=== PATIENT | female | born 1970 | race Caucasian/White ===

== ENCOUNTER 2016-05-20 08:37 | Emergency (ER) | payer OTHER ==
[~2016-05-20 08:37] MED LIST: ALPR0.5T PO; ALPR1TAB2 PO; ASPI81TA9 PO; CEPH500C PO; CETI10TA22 PO; CIPR500T94 PO; FLUT1DIS3 IH; FLUT1DIS5 IH; IBUP800T PO; ISOS30TA4 PO; LEVO500T38 PO; LORA0.5T96 PO; METO25TA4 PO; METO50TA2 PO; NEBI20TA2 PO; NITR0.4T SL; ONDA4TAB10 SL; PANT40TA3 PO; PRAV20TA2 PO; PRAV40TA PO; RIVA10TA PO; SERT25TA PO; SUCR1TAB29 PO; TRAM50TA PO
[2016-05-20 08:40] VITALS: BP 126/76
[2016-05-20] MEDS ORDERED: IV NORMAL SALINE 1,000ML 1,000 ML IV ONE (09:15)
[2016-05-20 09:27] LABS: HEMOGLOBIN ISTAT 11.9 gm/dL; POTASSIUM ISTAT 3.7 mmol/L (3.5-5.0)
[2016-05-20] MEDS ORDERED: LIDO:MAALOX 1:1 20 ML SINGLE DOSE ONE (09:28)
[2016-05-20] MEDS ORDERED: FENTANYL PF 100 MCG/2 ML VIAL. IV ONE (09:30)
[2016-05-20] MEDS ORDERED: ONDANSETRON PF 4 MG/2 ML VIAL. IV ONE (09:30)
--- NOTE | 2016-05-20 09:32 | ED.ADGEN ---
Past History Past Medical History: Anxiety, CAD, GERD, High Cholesterol, Hypertension, Kidney Stones, Ovarian Cyst, Pneumonia, Other Additional Past Medical Histor: pulmonary embolism Past Surgical History: Appendectomy, Cholecystectomy, , Hysterectomy, Other Smoking: Quit Less Than 1 Year Alcohol Use: None Drug Use: None Adult General HPI HPI Patient is a 45-year-old female presents emergency department complaining of left upper quadrant pain as last night. Patient denies any associated symptoms. She denies any nausea, vomiting, fever, chills, diarrhea, dysuria, vaginal bleeding or discharge. History of appendectomy and cholecystectomy. She took some Ultram earlier today for her pain but did not get satisfactory relief. Patient does not that it may be somewhat related to anxiety since she did have been with her ex- last night. She also reports that she is currently on a PPI and Carafate for gastritis and GERD. Review of Systems Review of Systems Constitutional: Denies fever or chills [] Eyes: Denies change in visual acuity, redness, or eye pain [] HENT: Denies nasal congestion or sore throat [] Respiratory: Denies cough or shortness of breath [] Cardiovascular: No additional information not addressed in HPI [] GI: Denies abdominal pain, nausea, vomiting, bloody stools or diarrhea [] : Denies dysuria or hematuria [] Musculoskeletal: Denies back pain or joint pain [] Integument: Denies rash or skin lesions [] Neurologic: Denies headache, focal weakness or sensory changes [] Endocrine: Denies polyuria or polydipsia [] Current Medications Current Medications Current Medications Medications (Trade) Dose Ordered Sig/[facility] Start Time Stop Time Status Last Admin Dose Admin Fentanyl Citrate 75 mcg 75 mcg 1X ONCE 05/20/16 09:30 05/20/16 09:31 DC 05/20/16 09:43 75 MCG Multi-Ingredient Mouthwash/Gargle (Gi Cocktail) 20 ml 1X ONCE 05/20/16 09:45 05/20/16 09:46 DC 05/20/16 09:43 20 ML Ondansetron HCl (Zofran) 4 mg 1X ONCE 05/20/16 09:30 05/20/16 09:31 DC 05/20/16 09:40 4 MG Sodium Chloride (Iv Sodium Chloride 0.9% 1,000ml) 1,000 ml @ 1,000 mls/hr 1X ONCE 05/20/16 09:15 05/20/16 10:14 05/20/16 09:38 1,000 MLS/HR Allergies Allergies Allergies Coded Allergies Type Severity Reaction Last Updated Verified codeine Allergy Intermediate 03/18/15 No morphine Allergy Intermediate Palpitations 03/18/15 Yes Physical Exam Physical Exam Constitutional: Well developed, well nourished, no acute distress, non-toxic appearance. [] HENT: Normocephalic, atraumatic, bilateral external ears normal, oropharynx moist, no oral exudates, nose normal. [] Eyes: PERRLA, EOMI, conjunctiva normal, no discharge. [] Neck: Normal range of motion, no tenderness, supple, no stridor. [] Cardiovascular:Heart rate regular rhythm, no murmur [] Lungs & Thorax: Bilateral breath sounds clear to auscultation [] Abdomen: Bowel sounds normal, soft, minimal epigastric tenderness palpation without peritoneal signs, no masses, no pulsatile masses. [] Skin: Warm, dry, no erythema, no rash. [] Back: No tenderness, no CVA tenderness. [] Extremities: No tenderness, no cyanosis, no clubbing, ROM intact, no edema. [] Neurologic: Alert and oriented X 3, normal motor function, normal sensory function, no focal deficits noted. [] Psychologic: Affect normal, judgement normal, mood normal. [] Current Patient Data Vital Signs Vital Signs Date Time Temp Pulse Resp B/P Pulse Ox O2 Delivery O2 Flow Rate FiO2 05/20/16 09:43 18 Lab Results Laboratory Tests Test 05/20/16 09:17 05/20/16 09:23 Aspartate Amino Transferase (AST) 29U/L (15-37) Alanine Aminotransferase (ALT) 46U/L (14-59) Alkaline Phosphatase 104U/L (46-116) Lipase 76U/L (73-393) POC Hemoglobin 11.9gm/dL POC Hematocrit 35% POC Sodium 141mmol/L (135-145) POC Potassium 3.7mmol/L (3.5-5.0) POC Chloride 99mmol/L (98-110) POC Total CO2 30mmol/L (23-32) Anion Gap 17mmol/L (6-14) H POC Blood Urea Nitrogen 22mg/dL (8-26) POC Creatinine 0.9mg/dL (0.5-1.4) Glucose Level 107mg/dL (60-99) H POC Ionized Calcium (Magdy) 1.15mmol/L (1.13-1.32) EKG EKG EKG interpreted by me, normal sinus rhythm, 82 beats for minute, normal axis, no ST segment elevation. [] Radiology/Procedures Radiology/Procedures [] Course & Med Decision Making Course & Med Decision Making Pertinent Labs and Imaging studies reviewed. (See chart for details) Reassuring workup. Patient's pain is improved after GI cocktail. She will follow with her doctor as needed return emergency department sooner she develops new or worsening symptoms. [] Final Impression Final Impression Abdominal pain [] Problems: Dragon Disclaimer Dragon Disclaimer This electronic medical record was generated, in whole or in part, using a voice recognition dictation system. ALEKS MIMS MD May 20, 2016 09:32
[2016-05-20 09:41] LABS: ALK PHOS 104 U/L (46-116); ALT (SGPT) 46 U/L (14-59); AST (SGOT) 29 U/L (15-37); LIPASE 76 U/L (73-393)
[2016-05-20] MEDS ORDERED: LIDO:MAALOX 1:1 20 ML SINGLE DOSE PO ONE (09:45)
--- NOTE | 2016-05-22 11:56 | EKG ---
[address] [address] Test Date: 2016-05-20 Test Time: 08:56:04 Pat Name: OWEN HERNANDEZ Department: Room: Gender: F Blood Collector: GAURAV : 1970 Requested By: ALEKS MIMS Order Number: [id number] Reading MD: Measurements Intervals [place] Rate: 82 P: 41 [place]: 142 QRS: 39 QRSD: 88 T: 67 QT: 386 QTc: 454 Interpretive Statements SINUS RHYTHM QRS(T) CONTOUR ABNORMALITY CONSIDER INFERIOR MYOCARDIAL DAMAGE T ABNORMALITY IN HIGH LATERAL LEADS ABNORMAL ECG RI6.01 Unconfirmed report No previous ECG available for comparison
== END 2016-05-20 10:23 | disposition home or self-care (01) ==
LOC: ER 08:37
DX: R10.12 Left upper quadrant pain (principal); I25.10 Atherosclerotic heart disease of native coronary artery without angina pectoris; K21.9 Gastro-esophageal reflux disease without esophagitis; E78.00 Pure hypercholesterolemia, unspecified; I10 Essential (primary) hypertension; Z87.442 Personal history of urinary calculi; Z86.711 Personal history of pulmonary embolism; Z90.49 Acquired absence of other specified parts of digestive tract; Z87.891 Personal history of nicotine dependence; Z79.899 Other long term (current) drug therapy; Z90.710 Acquired absence of both cervix and uterus; Z88.5 Allergy status to narcotic agent
CPT/HCPCS: 36415; 80047; 83690; 84075; 84450; 84460; 96361; 96374; 96375; 99285; J2405; J3010; J7030

== ENCOUNTER → 2016-07-10 | Outpatient (CLI) | payer OTHER ==
[~2016-07-10] MED LIST changes: +ASPI-612 PO; -ASPI81TA9 PO; -IBUP800T PO; +IBUP800T19 PO; -LEVO500T38 PO; +LEVO500T59 PO; -SUCR1TAB29 PO; +SUCR1TAB35 PO
[2016-07-10 11:53] LABS: ALBUMIN 3.8 g/dL (3.4-5.0); DIRECT BILIRUBIN 0.1 mg/dL (0.0-0.2); TOTAL BILIRUBIN 0.5 mg/dL (0.2-1.0); TOTAL PROTEIN 7.9 g/dL (6.4-8.2)
== END | disposition home or self-care (01) ==
LOC: LAB 11:12
PROVIDERS: ATTEND Internal Medicine Cardiovascular Disease
DX: E78.00 Pure hypercholesterolemia, unspecified (principal); Z86.711 Personal history of pulmonary embolism
CPT/HCPCS: 36415; 80061; 80076; 85379

== ENCOUNTER 2016-07-25 16:48 | Emergency (ER) | payer OTHER ==
[~2016-07-25] VITALS: Ht 165.1 cm; Wt 108.6 kg
--- NOTE | 2016-07-25 18:08 | ED.ADGEN ---
Past History Past Medical History: Anxiety, CAD, GERD, High Cholesterol, Hypertension, Kidney Stones, Ovarian Cyst, Pneumonia, Other Additional Past Medical Histor: pulmonary embolism Past Surgical History: Appendectomy, Cholecystectomy, , Hysterectomy, Other Smoking: Quit Less Than 1 Year Alcohol Use: None Drug Use: None Adult General Chief Complaint Chief Complaint Bloody stools HPI HPI Patient is a 46 year old female who presents with bloody stools. She states she woke up this morning around 11 AM had a bowel movement she noticed like clots in it. She denies any abdominal pain. She states that she won't around her day because she felt normal and then this afternoon she got home and she had blood in her underwear. She states she felt lightheaded dizzy at that time. She states that she was seen earlier today and picked up samples of Xeralto as she's had it PE in the past and has been having elevated d-dimer is no upper back on a blood thinner until she is further evaluated by heme on. She denies any chest pain shortness of breath nausea vomiting or leg swelling. She states she's had a hysterectomy appendectomy cholecystectomy in the past. Review of Systems Review of Systems Constitutional: Denies fever or chills [] Eyes: Denies change in visual acuity, redness, or eye pain [] HENT: Denies nasal congestion or sore throat [] Respiratory: Denies cough or shortness of breath [] Cardiovascular: No additional information not addressed in HPI [] GI: Denies abdominal pain, nausea, vomiting, diarrhea , positive for bloody stools. : Denies dysuria or hematuria [] Musculoskeletal: Denies back pain or joint pain [] Integument: Denies rash or skin lesions [] Neurologic: Denies headache, focal weakness or sensory changes [] Endocrine: Denies polyuria or polydipsia [] Current Medications Current Medications Current Medications Medications (Trade) Dose Ordered Sig/Naomy Start Time Stop Time Status Last Admin Dose Admin Hydromorphone HCl (Dilaudid) 1 mg PRN Q15MIN PRN 07/25/16 22:00 07/26/16 21:59 07/25/16 22:00 1 MG Allergies Allergies Allergies Coded Allergies Type Severity Reaction Last Updated Verified codeine Allergy Intermediate 03/18/15 No morphine Allergy Intermediate Palpitations 03/18/15 Yes Physical Exam Physical Exam Constitutional: Well developed, well nourished, no acute distress, non-toxic appearance. [] HENT: Normocephalic, atraumatic, bilateral external ears normal, oropharynx moist, no oral exudates, nose normal. [] Eyes: PERRLA, EOMI, conjunctiva normal, no discharge. [] Neck: Normal range of motion, no tenderness, supple, no stridor. [] Cardiovascular:Heart rate regular rhythm, no murmur [] Lungs & Thorax: Bilateral breath sounds clear to auscultation [] Abdomen/rectal exam: Bowel sounds normal, soft, no tenderness, no masses, no pulsatile masses. Rectal exam shows no external hemorrhoids, no masses, minimal nonbloody stool in the vault Skin: Warm, dry, no erythema, no rash. [] Back: No tenderness, no CVA tenderness. [] Extremities: No tenderness, no cyanosis, no clubbing, ROM intact, no edema. [] Neurologic: Alert and oriented X 3, normal motor function, normal sensory function, no focal deficits noted. [] Psychologic: Affect normal, judgement normal, mood normal. [] Current Patient Data Vital Signs Vital Signs Date Time Temp Pulse Resp B/P (MAP) Pulse Ox O2 Delivery O2 Flow Rate FiO2 07/25/16 22:00 20 99 Room Air 07/25/16 18:57 98.1 96 Lab Results Laboratory Tests Test 07/25/16 18:14 07/25/16 18:30 07/25/16 18:45 07/25/16 18:46 White Blood Count 7.2 x10^3/uL (4.0-11.0) Red Blood Count 3.73 x10^6/uL (3.50-5.40) Hemoglobin 11.5 g/dL (12.0-15.5) L Hematocrit 34.0 % (36.0-47.0) L Mean Corpuscular Volume 91 fL (79-100) Mean Corpuscular Hemoglobin 31 pg (25-35) Mean Corpuscular Hemoglobin Concent 34 g/dL (31-37) Red Cell Distribution Width 13.3 % (11.5-14.5) Platelet Count 252 x10^3/uL (140-400) Neutrophils (%) (Auto) 59 % (31-73) Lymphocytes (%) (Auto) 30 % (24-48) Monocytes (%) (Auto) 8 % (0-9) Eosinophils (%) (Auto) 4 % (0-3) H Basophils (%) (Auto) 1 % (0-3) Neutrophils # (Auto) 4.2 x10^3uL (1.8-7.7) Lymphocytes # (Auto) 2.1 x10^3/uL (1.0-4.8) Monocytes # (Auto) 0.6 x10^3/uL (0.0-1.1) Eosinophils # (Auto) 0.3 x10^3/uL (0.0-0.7) Basophils # (Auto) 0.0 x10^3/uL (0.0-0.2) Prothrombin Time 10.1 SEC (9.4-11.4) Prothrombin Time INR 1.0 (0.9-1.1) PTT 24 SEC (23-33) Urine Test Negative (NEG) Stool Occult Blood Positive (NEG) Sodium Level 143 mmol/L (136-145) Potassium Level 3.9 mmol/L (3.5-5.1) Chloride Level 107 mmol/L (98-107) Carbon Dioxide Level 29 mmol/L (21-32) Anion Gap 7 (6-14) Blood Urea Nitrogen 14 mg/dL (7-20) Creatinine 1.0 mg/dL (0.6-1.0) Estimated GFR (Cockcroft-Gault) 60.0 Glucose Level 122 mg/dL (70-99) H Calcium Level 8.5 mg/dL (8.5-10.1) Test 07/25/16 19:02 Creatine Kinase 104 U/L (26-192) Creatine Kinase MB (Mass) 0.9 ng/mL (0.0-3.6) Creatine Kinase MB Relative Index 0.9 % (0-4) Troponin I Quantitative < 0.017 ng/mL (0-0.055) EKG EKG EKG shows normal sinus rhythm with a rate of [address] elevations or T-wave inversions, normal axis, QTC 480 ms, as interpreted by me. Radiology/Procedures Radiology/Procedures [address] [address] IMAGING REPORT Signed PATIENT: OWEN HERNANDEZ ACCOUNT: [id number] : 1970 LOCATION: ER AGE: 46 SEX: F EXAM STATUS: REG ER ORD. PHYSICIAN: ALEKSANDRA TURNER MD REASON: gi bleed PROCEDURE: CT ABDOMEN PELVIS WO CONTRAST History: Epigastric abdominal pain with GI bleeding. Comparison: CT abdomen and pelvis March 05, 2016. Technique: CT of the abdomen and pelvis was performed without intravenous or oral contrast. Exposure: One or more of the following individualized dose reduction techniques were utilized for this examination: 1. Automated exposure control 2. Adjustment of the mA and/or kV according to patient size 3. Use of iterative reconstruction technique Findings: Evaluation of solid organs of the abdomen and pelvis is limited by lack of intravenous contrast. Evaluation of enteric structures may be limited by lack of oral contrast. Visualized liver is unremarkable. Spleen is at the upper limits of normal for size. Pancreas and bilateral adrenal glands are unremarkable. Gallbladder is absent. No bowel obstruction or inflammation is seen. Appendix is not identified. Urinary bladder is unremarkable. Uterus is absent. Both kidneys and ureters are free stone or obstruction. Interpolar region of left kidney demonstrates 2.9 cm low-attenuation lesion, not adequately characterized on this examination, statistically should be cyst. Impression: No acute abnormality identified in the abdomen or pelvis. Electronically signed by: Bhavesh Florence MD (07/25/2016 6:38 PM) DICTATED AND SIGNED BY: BHAVESH FLORENCE MD DATE: 07/25/16 1833 CC: ALEKSANDRA TURNER MD; NIYAH SALEH APRN ~ Course & Med Decision Making Course & Med Decision Making Pertinent Labs and Imaging studies reviewed. (See chart for details) She did start complaining of some burning sensation in her abdomen. EKG and troponins do not show acute abdomen allergies. Echo exam did not show any active bleeding. She wanted to go to [facility], however there full and not accepting patients this time. We'll admit to [place] with Dr. Culver. Patient did require IV Dilaudid and 1 mg prior to departure the EMS. She is in stable condition this time. Final Impression Final Impression Rectal bleeding Problems: Dragon Disclaimer Dragon Disclaimer This electronic medical record was generated, in whole or in part, using a voice recognition dictation system. ALEKSANDRA TURNER MD Jul 25, 2016 18:08
--- NOTE | 2016-07-25 18:42 | RAD ---
History: Epigastric abdominal pain with GI bleeding. Comparison: CT abdomen and pelvis March 05, 2016. Technique: CT of the abdomen and pelvis was performed without intravenous or oral contrast. Exposure: One or more of the following individualized dose reduction techniques were utilized for this examination: 1. Automated exposure control 2. Adjustment of the mA and/or kV according to patient size 3. Use of iterative reconstruction technique Findings: Evaluation of solid organs of the abdomen and pelvis is limited by lack of intravenous contrast. Evaluation of enteric structures may be limited by lack of oral contrast. Visualized liver is unremarkable. Spleen is at the upper limits of normal for size. Pancreas and bilateral adrenal glands are unremarkable. Gallbladder is absent. No bowel obstruction or inflammation is seen. Appendix is not identified. Urinary bladder is unremarkable. Uterus is absent. Both kidneys and ureters are free stone or obstruction. Interpolar region of left kidney demonstrates 2.9 cm low-attenuation lesion, not adequately characterized on this examination, statistically should be cyst. Impression: No acute abnormality identified in the abdomen or pelvis. Electronically signed by: Bhavesh James MD (07/25/2016 6:38 PM)
[2016-07-25 18:57] VITALS: BP 141/94
[2016-07-25 19:00] LABS: FECAL OB PT POSITIVE (NEG)
[2016-07-25 19:15] LABS: BASO % 1 % (0-3); EOS # 0.3 x10^3/uL (0.0-0.7); EOS % 4 % (0-3); HEMOGLOBIN 11.5 g/dL (12.0-15.5); LYMPH # 2.1 x10^3/uL (1.0-4.8); LYMPH % 30 % (24-48); MEAN CORPUSCULAR HEMOGLOBIN 31 pg (25-35); MEAN CORPUSCULAR HGB CONC 34 g/dL (31-37); MEAN CORPUSCULAR VOLUME 91 fL (79-100); MONO # 0.6 x10^3/uL (0.0-1.1); MONO % 8 % (0-9); NEUT # 4.2 x10^3uL (1.8-7.7); NEUT % 59 % (31-73); PLATELET COUNT 252 x10^3/uL (140-400); RED BLOOD COUNT 3.73 x10^6/uL (3.50-5.40); RED CELL DISTRIBUTION WIDTH 13.3 % (11.5-14.5); WHITE BLOOD COUNT 7.2 x10^3/uL (4.0-11.0)
[2016-07-25 19:21] LABS: CALCIUM 8.5 mg/dL (8.5-10.1); POTASSIUM 3.9 mmol/L (3.5-5.1)
[2016-07-25 19:42] LABS: U PREG PATIENT NEGATIVE (NEG)
[2016-07-25] MEDS ORDERED: HYDROmorphone PF 1 MG/ML DISP.SYRIN IV/SQ PRN (22:00)
--- NOTE | 2016-07-26 04:30 | EKG ---
[address] [address] Test Date: 2016-07-25 Test Time: 18:20:38 Pat Name: OWEN HERNANDEZ Department: Room: Gender: F [employer] Professional: MIKY : 1970 Requested By: ALEKSANDRA TURNER Order Number: [id number] Reading MD: Carter Celaya Measurements Intervals [place] Rate: 92 P: 42 [place]: 146 QRS: 36 QRSD: 92 T: 51 QT: 384 QTc: 480 Interpretive Statements SINUS RHYTHM Electronically Signed On 07-26-2016 11:14:22 CDT by Carter Celaya
== END 2016-07-25 23:35 | disposition short-term general hospital (02) ==
LOC: ER 16:48
DX: K62.5 Hemorrhage of anus and rectum (principal); R42 Dizziness and giddiness; I25.10 Atherosclerotic heart disease of native coronary artery without angina pectoris; I10 Essential (primary) hypertension; E78.00 Pure hypercholesterolemia, unspecified; K21.9 Gastro-esophageal reflux disease without esophagitis; Z87.442 Personal history of urinary calculi; Z86.711 Personal history of pulmonary embolism; Z87.891 Personal history of nicotine dependence; Z88.5 Allergy status to narcotic agent; Z88.6 Allergy status to analgesic agent
CPT/HCPCS: 36415; 74176; 80048; 81025; 82274; 82553; 84484; 85027; 85610; 85730; 93005; 96374; 99285; J1170

== ENCOUNTER → 2016-09-24 | Outpatient (CLI) | payer OTHER ==
--- NOTE | 2016-09-25 10:23 | RAD ---
DATE: 09/24/2016. 30 171 moderate to the prior EXAM: MAMMO LES DIAG RT, BREAST RIGHT HISTORY: Follow-up right breast abnormality. Patient complains of right breast discomfort COMPARISON: Ultrasound and mammogram 03/28/2016, This study was interpreted with the benefit of Computerized Aided Detection (CAD ). The breast parenchyma shows scattered fibroglandular densities. Breast parenchyma level B. FINDINGS: CC and MLO views of the right breast including right breast tomosynthesis was performed. Targeted ultrasound was utilized. Right breast: Stable appearance of 2 nodular areas in the right breast at the 12 :00 position, approximately 3 and 5 cm from the nipple. Repeat targeted ultrasound was performed in this region which demonstrates a 3 mm slightly hypoechoic mass at the 12:00 position, 3 cm from the nipple. This finding likely represents a complicated cyst. At the 12:00 position, 5 cm from the nipple there is a 4 x 4.5 mm irregular mass with angular margins which is isoechoic. No definite posterior characteristics are identified. There is an adjacent dilated tubular structure suggestive of a duct measuring up to 1.5 mm in diameter. Previously seen cystic structure appears to be contiguous with the duct. This finding is indeterminate and ultrasound-guided biopsy of the irregular mass is recommended. This was discussed with the patient at the time of ultrasound imaging. Results were communicated with Jada Soares, who will provide the patient with an order for ultrasound-guided biopsy. IMPRESSION: Suspicious findings of a 4 x 4.5 mm irregular mass with angular margins in the right breast at 12:00 position, 5 cm from the nipple. Recommend ultrasound- guided biopsy. BI-RADS CATEGORY: 4 SUSPICIOUS ABNORMALITY- BIOPSY SHOULD BE CONSIDERED RECOMMENDED FOLLOW-UP: BIO BIOPSY RECOMMENDED PQRS compliance statement: Mammography is a sensitive method for finding small breast cancers, but it does not detect them all and is not a substitute for careful clinical examination. A negative mammogram does not negate a clinically suspicious finding and should not result in delay in biopsying a clinically suspicious abnormality. "Our facility is accredited by the [employer] Mammography Program." MTDD
== END | disposition home or self-care (01) ==
LOC: MAMMO 13:44
PROVIDERS: ATTEND Family Medicine
DX: N63 Unspecified lump in breast (principal)
CPT/HCPCS: 76641; G0206; G0279; 77061; 77065

== ENCOUNTER 2016-12-20 14:36 | Emergency (ER) | payer OTHER ==
[2016-12-20] MEDS ORDERED: traMADol 50 MG TABLET PO ONE (15:00)
--- NOTE | 2016-12-20 15:11 | ED.ADGEN ---
Past History Past Medical History: Anxiety, CAD, High Cholesterol, Hypertension, Kidney Stones, Ovarian Cyst, Pneumonia Additional Past Medical Histor: pulmonary embolism Past Surgical History: Appendectomy, Cholecystectomy, , Hysterectomy Smoking: Quit Less Than 1 Year Alcohol Use: None Drug Use: None Adult General Chief Complaint Chief Complaint Back pain HPI HPI Patient is a 46 year old female who presents with worsening R low back pain. Pt reports chronic low back pain from a herniated disc, that radiates to her R posterior thigh. Denies saddle sensory change, no bowel or bladder incontinence or retention reported. These are typical symptoms from her chronic pain but uncontrolled because patient is out of her tramadol today and also cannot afford to get the lidocaine patches or the Soma tablet that the primary pain specialist prescribed. She tried to go and get her tramadol prescription filled but the pharmacy had not yet received the refill verification from the PCP. Reports some increased urinary frequency with sensation she doesn't empty her bladder, symptoms started this morning. Review of Systems Review of Systems Constitutional: Denies fever or chills [] Eyes: Denies change in visual acuity, redness, or eye pain [] HENT: Denies nasal congestion or sore throat [] Respiratory: Denies cough or shortness of breath [] Cardiovascular: reports chronic tachycardia GI: Denies abdominal pain, nausea, vomiting, bloody stools or diarrhea [] : per hpi Musculoskeletal: per hpi Integument: Denies rash or skin lesions [] All other systems were reviewed and found to be within normal limits, except as documented in this note. Current Medications Current Medications Current Medications Medications (Trade) Dose Ordered Sig/Naomy Start Time Stop Time Status Last Admin Dose Admin Cyclobenzaprine HCl (Flexeril) 10 mg 1X ONCE 12/20/16 15:30 12/20/16 15:31 DC 12/20/16 15:08 10 MG Lidocaine (Lidoderm) 1 patch 1X ONCE 12/20/16 15:30 12/20/16 15:31 DC 12/20/16 15:13 1 PATCH Tramadol HCl (Ultram) 50 mg 1X ONCE 12/20/16 15:00 12/20/16 15:01 DC 12/20/16 14:59 50 MG Allergies Allergies Allergies Coded Allergies Type Severity Reaction Last Updated Verified codeine Allergy Intermediate 03/18/15 No morphine Allergy Intermediate Palpitations 03/18/15 Yes Physical Exam Physical Exam Constitutional: Well developed, well nourished, no acute distress, non-toxic appearance. [] HENT: Normocephalic, atraumatic, bilateral external ears normal, oropharynx moist, no oral exudates, nose normal. [] Eyes: PERRLA, EOMI, conjunctiva normal, no discharge. [] Neck: Normal range of motion, no tenderness, supple, no stridor. [] Cardiovascular:Heart rate midlly tachy with regular with regular rhythm Lungs & Thorax: Bilateral breath sounds clear to auscultation [] Abdomen: Bowel sounds normal, soft, no tenderness, no masses, no pulsatile masses. [] Skin: Warm, dry, no erythema, no rash. [] Back: No midline stepoffs or tenderness, R SI joint ttp, no CVA tenderness. [] Extremities: No tenderness, no cyanosis, no clubbing, no edema.distal pulses intact. Neurologic: Alert and oriented X 3, normal motor function, normal sensory function, no focal deficits noted. [] Psychologic: Affect normal, judgement normal, mood normal. [] Current Patient Data Vital Signs Vital Signs Date Time Temp Pulse Resp B/P (MAP) Pulse Ox O2 Delivery O2 Flow Rate FiO2 12/20/16 14:59 20 98 Room Air 12/20/16 14:36 98.3 127 Lab Results Laboratory Tests Test 12/20/16 14:55 Urine Collection Type Unknown Urine Color Yellow Urine Clarity Turbid Urine pH 8.5 Urine Specific [place] 1.020 Urine Protein 30 mg/dl (NEG-TRACE) Urine Glucose (UA) Neg mg/dL (NEG) Urine Ketones (Stick) Neg mg/dL (NEG) Urine Blood Small (NEG) Urine Nitrite Neg (NEG) Urine Bilirubin Neg (NEG) Urine Urobilinogen Dipstick 0.2 mg/dL (0.2 mg/dL) Urine Leukocyte Esterase Mod (NEG) Urine RBC 3-5 /HPF (0-2) Urine WBC >40 /HPF (0-4) Urine Squamous Epithelial Cells Mod /LPF Urine Bacteria Few /HPF (0-FEW) Urine Mucus Slight /LPF EKG EKG [] Radiology/Procedures Radiology/Procedures [] Course & Med Decision Making Course & Med Decision Making Pertinent Labs and Imaging studies reviewed. (See chart for details) pt will not be driving. Ordered tramadol, lidocaine patch, and po flexeril. Pt has prescriptions for her medications, encouraged her to f/u with her primary pain specialist. Pt requested steroid shot. solumedrol 125 mg IM given prior to dc. Pt's urine shows signs of infection. Will treat with keflex and have pt f/u with pcp. Final Impression Final Impression acute on chronic R low back pain without signs of cord compression[] Urinary tract infection Problems: Dragon Disclaimer Dragon Disclaimer This electronic medical record was generated, in whole or in part, using a voice recognition dictation system. ЕКАТЕРИНА KENDALL MD Dec 20, 2016 15:11
[2016-12-20] MEDS ORDERED: LIDOCAINE (700MG/PATCH) PATCH. TD ONE (15:30)
[2016-12-20] MEDS ORDERED: CYCLOBENZAPRINE 10 MG TABLET. PO ONE (15:30)
[2016-12-20 15:35] LABS: BACTERIA,URINE FEW /HPF (0-FEW); BILIRUBIN,URINE NEG (NEG); CLARITY,URINE TURBID; COLOR,URINE YELLOW; GLUCOSE,URINE NEG (NEG); NITRITE,URINE NEG (NEG); SQUAMOUS EPITHELIAL CELL,UR MOD /LPF; UROBILINOGEN,URINE 0.2 mg/dL (0.2 mg/dL); WBC,URINE >40 /HPF (0-4)
[2016-12-20] MEDS ORDERED: CEPH-264 PO (15:41)
[2016-12-20 16:00] VITALS: BP 109/45
[2016-12-20] MEDS ORDERED: methylPREDNISolone SOD SUCC PF 125 MG/2 ML VIAL. IM ONE (16:15)
== END 2016-12-20 16:00 | disposition home or self-care (01) ==
LOC: ER 14:36
DX: G89.29 Other chronic pain (principal); M54.5 Low back pain; N39.0 Urinary tract infection, site not specified; E78.00 Pure hypercholesterolemia, unspecified; I10 Essential (primary) hypertension; I25.10 Atherosclerotic heart disease of native coronary artery without angina pectoris; F41.9 Anxiety disorder, unspecified; Z87.442 Personal history of urinary calculi; Z86.711 Personal history of pulmonary embolism; Z90.49 Acquired absence of other specified parts of digestive tract; Z98.890 Other specified postprocedural states; Z90.710 Acquired absence of both cervix and uterus; Z87.891 Personal history of nicotine dependence; Z88.5 Allergy status to narcotic agent
CPT/HCPCS: 81001; 87086; 96372; 99284; J2930

== ENCOUNTER 2018-11-28 20:30 | Inpatient (IN) | payer OTHER ==
[~2018-11-28] VITALS: Ht 165.1 cm; Wt 127.9 kg
[~2018-11-28 20:30] MED LIST changes: +CEPH-264 PO; -METO50TA2 PO; +METO50TA6 PO; -NITR0.4T SL; +NITR0.4T24 SL
[2018-11-28] MEDS ORDERED: IV NORMAL SALINE 1,000ML 1,000 ML IV SCH (20:55)
[2018-11-28] MEDS ORDERED: IPRATRPIUM/ALBUTEROL 0.5/2.5MG 3 ML NEBU. NEB ONE (21:00)
--- NOTE | 2018-11-28 21:01 | PHYS DOC ---
Past History Past Medical History: Anxiety, CAD, High Cholesterol, Hypertension, Kidney Stones, Ovarian Cyst, Pneumonia, Other Additional Past Medical Histor: pulmonary embolism, tachycardia Past Surgical History: Appendectomy, Cholecystectomy, , Hysterectomy, Other Smoking: Quit Less Than 1 Year Alcohol Use: None Drug Use: None Adult General Chief Complaint Chief Complaint: DYSPNEA/RESPIRATOY DISTRESS [facility] HPI Patient is a 48-year-old female presents with shortness of breath and feeling tired. This has been going on today. Patient denies any fever. She was admitted at [facility] approximately a month and a half ago for sepsis of unknown source. She was seen by her primary care team today had blood work drawn, and was contacted because her white count was elevated at 17, and her primary care team was concerned about her liver and kidney function per patient's report. Patient denies any chest pain. Denies any respirophasic pain. Denies any new swelling in her legs. She relatively recently broke her ankle and has been in a Velcro splint mechanism for that. She does have her remote history of pulmonary embolism but is not currently on any anticoagulants. She also has a history of asthma/COPD and stopped smoking approximately 8 months ago.[] Review of Systems Review of Systems Constitutional: Denies fever or chills, see history of present illness [] Eyes: Denies change in visual acuity, redness, or eye pain [] HENT: Denies nasal congestion or sore throat [] Respiratory: See history of present illness[] Cardiovascular: No additional information not addressed in HPI [] GI: Denies abdominal pain, nausea, vomiting, bloody stools or diarrhea [] : Denies dysuria or hematuria [] Musculoskeletal: Denies back pain or joint pain [] Integument: Denies rash or skin lesions [] Neurologic: Denies headache, focal weakness or sensory changes [] Endocrine: Denies polyuria or polydipsia [] All other systems were reviewed and found to be within normal limits, except as documented in this note. Allergies Allergies Allergies Coded Allergies Type Severity Reaction Last Updated Verified codeine Allergy Intermediate 03/18/15 No morphine Allergy Intermediate Palpitations 03/18/15 Yes Physical Exam Physical Exam Constitutional: Well developed, well nourished, no acute distress, non-toxic appearance. [] HENT: Normocephalic, atraumatic, bilateral external ears normal, oropharynx moist, no oral exudates, nose normal. [] Eyes: PERRLA, EOMI, conjunctiva normal, no discharge. [] Neck: Normal range of motion, no tenderness, supple, no stridor. [] Cardiovascular:Heart rate is tachycardic with a regular rhythm, no murmur [] Lungs & Thorax: Bilateral breath sounds clear to auscultation [] Abdomen: Bowel sounds normal, soft, no tenderness, no masses, no pulsatile masses. [] Skin: Warm, dry, no erythema, no rash. [] Back: No tenderness, no CVA tenderness. [] Extremities: No tenderness, no cyanosis, no clubbing, ROM intact, no edema. [] Neurologic: Alert and oriented X 3, normal motor function, normal sensory function, no focal deficits noted. [] Psychologic: Affect normal, judgement normal, mood normal. [] EKG EKG EKG shows a sinus tachycardia at 112 bpm, normal axis, normal QTC at 466 ms, no ST elevations. When compared with EKG of 07/25/2016, no acute changes other than rate. Interpreted by me at 2119.[] Radiology/Procedures Radiology/Procedures Chest x-ray shows no evidence of pneumonia, pneumothorax, nor effusion[] Course & Med Decision Making Course & Med Decision Making Pertinent Labs and Imaging studies reviewed. (See chart for details) ED course: Patient arrived, was placed in bed, and tolerated exam well. IV access was established, she was given IV fluids which did not significantly change her heart rate. She was given a breathing treatment which may have affected the heart rate improving affect some of the IV fluids. Her elevated lactate was noted along with the leukocytosis which is better than the reported 17 performed earlier today at her primary care physician's office. Additional fluids were ordered, that she was given empiric antibiotic therapy. And consultation was made with the hospitalist service for admission. She was admitted in improved condition. Records are being requested from [facility] since that is where she was admitted within the past 2 months when something like this last happened. Medical decision making: Patient with leukocytosis, elevated glucose without evidence of DKA however her lactate is elevated. Uncertain as to the specific trigger but covering for pulmonary features. She is being admitted to the hospital. Do not believe this to be a pulmonary embolism, her d-dimer while elevated is only slightly elevated. She has no respirophasic chest pain, and no evidence of this being acute coronary syndrome.[] Dragon Disclaimer Dragon Disclaimer This electronic medical record was generated, in whole or in part, using a voice recognition dictation system. Departure Departure: Impression: Primary Impression: Weakness Additional Impressions: Leukocytosis Elevated lactic acid level Elevated glucose Disposition: ADMITTED INPATIENT Admitting Physician: Huber Rodriguez Condition: IMPROVED Referrals: NIYAH SALEH APRN (PCP) Problem Qualifiers Additional Impressions: Leukocytosis Leukocytosis type: unspecified Qualified Codes: D72.829 - Elevated white blood cell count, unspecified AMEENA DOMINGUEZ DO Nov 28, 2018 21:01
[2018-11-28 22:18] LABS: BASO # 0.4 x10^3/uL (0.0-0.2); BASO % 3 % (0-3); EOS # 0.4 x10^3/uL (0.0-0.7); EOS % 3 % (0-3); HEMOGLOBIN 12.3 g/dL (12.0-15.5); LYMPH # 2.6 x10^3/uL (1.0-4.8); LYMPH % 18 % (24-48); MEAN CORPUSCULAR HEMOGLOBIN 29 pg (25-35); MEAN CORPUSCULAR HGB CONC 32 g/dL (31-37); MEAN CORPUSCULAR VOLUME 91 fL (79-100); MONO # 0.5 x10^3/uL (0.0-1.1); MONO % 4 % (0-9); NEUT # 10.9 x10^3uL (1.8-7.7); NEUT % 73 % (31-73); PLATELET COUNT 356 x10^3/uL (140-400); RED BLOOD COUNT 4.17 x10^6/uL (3.50-5.40); RED CELL DISTRIBUTION WIDTH 15.2 % (11.5-14.5); WHITE BLOOD COUNT 14.9 x10^3/uL (4.0-11.0)
[2018-11-28 22:22] LABS: ALBUMIN 3.3 g/dL (3.4-5.0); ALBUMIN/GLOBULIN RATIO 0.9 (1.0-1.7); CALCIUM 8.2 mg/dL (8.5-10.1); CREATININE 1.1 mg/dL (0.6-1.0); GFR 53.2; POTASSIUM 4.9 mmol/L (3.5-5.1); TOTAL BILIRUBIN 0.3 mg/dL (0.2-1.0)
[2018-11-28 22:30] LABS: CLARITY,URINE CLEAR; COLOR,URINE YELLOW; GLUCOSE,URINE 500 mg/dL (NEG)
[2018-11-28 22:31] LABS: BILIRUBIN,URINE NEG (NEG); NITRITE,URINE NEG (NEG); UROBILINOGEN,URINE 0.2 mg/dL (0.2 mg/dL)
[2018-11-28 22:37] LABS: BACTERIA,URINE FEW /HPF (0-FEW); HYALINE CASTS, URINE OCC /HPF; SQUAMOUS EPITHELIAL CELL,UR OCC /LPF; WBC,URINE OCC /HPF (0-4)
[2018-11-28] MEDS ORDERED: ONDANSETRON PF 4 MG/2 ML VIAL. IV PRN (23:00)
[2018-11-28] MEDS ORDERED: IV NORMAL SALINE 1,000ML 1,000 ML IV ONE (23:00)
[2018-11-28] MEDS ORDERED: ACETAMINOPHEN 325 MG TABLET PO PRN (23:00)
[2018-11-28] MEDS ORDERED: IV NORMAL SALINE 50ML 50 ML ONE (23:12)
[2018-11-28] MEDS ORDERED: cefTRIAXone SODIUM 1 GM VIAL ONE (23:12)
[2018-11-28] MEDS ORDERED: AZITHROMYCIN 500 MG in IV NORMAL SALINE 250ML 250 ML IV ONE (23:15)
[2018-11-28] MEDS ORDERED: KETOROLAC 15 MG/ML VIAL. IV ONE (23:15)
[2018-11-28] MEDS ORDERED: IV NORMAL SALINE 250ML 0 ML ONE (23:16)
[2018-11-28] MEDS ORDERED: AZITHROMYCIN 500 MG VIAL. IV ONE (23:16)
[2018-11-29] MEDS: IV NORMAL SALINE 1,000ML 1,000 ML IV SCH ×3 (00:08→21:30)
[2018-11-29 00:26] VITALS: BP 107/71
[2018-11-29] MEDS ORDERED: OXYC1TAB15 PO ×2 (00:33)
[2018-11-29] MEDS ORDERED: oxyCODONE/APAP 5/325 1 TAB TABLET PO PRN ×3 (00:45→01:30)
[2018-11-29] MEDS ORDERED: IBUPROFEN 800 MG TABLET. PO PRN (01:00)
[2018-11-29] MEDS ORDERED: traMADol 50 MG TABLET PO PRN (01:00)
[2018-11-29] MEDS ORDERED: ONDANSETRON ODT 4 MG TAB.RAPDIS PO PRN (01:00)
[2018-11-29] MEDS ORDERED: LINA145C PO (01:12)
[2018-11-29] MEDS ORDERED: SUCR1ORA5 PO (01:12)
[2018-11-29] MEDS ORDERED: METO100T7 PO (01:12)
[2018-11-29] MEDS ORDERED: IBUP800T19 PO (01:12)
[2018-11-29] MEDS ORDERED: TRAM50TA PO (01:12)
[2018-11-29] MEDS ORDERED: ONDA4TAB12 PO (01:12)
[2018-11-29] MEDS ORDERED: LIDO700A21 TP (01:12)
[2018-11-29] MEDS ORDERED: PREG150C PO (01:12)
[2018-11-29] MEDS ORDERED: FLUT9.9S NS (01:12)
[2018-11-29] MEDS ORDERED: NORT25CA3 PO (01:12)
[2018-11-29] MEDS ORDERED: DULO60CA6 PO (01:12)
[2018-11-29] MEDS ORDERED: INSU100I17 SQ (01:12)
[2018-11-29] MEDS ORDERED: ALBU2.5V8 IH (01:12)
[2018-11-29] MEDS ORDERED: FESO8TAB PO (01:12)
[2018-11-29] MEDS ORDERED: FLUT1BLS10 IH (01:12)
[2018-11-29] MEDS ORDERED: DEXTROSE 50% 25 GM / 50ML DISP.SYRIN. IV PRN (01:30)
[2018-11-29] MEDS ORDERED: IPRATRPIUM/ALBUTEROL 0.5/2.5MG 3 ML NEBU. ONE (05:02)
[2018-11-29] MEDS: IPRATRPIUM/ALBUTEROL 0.5/2.5MG 3 ML NEBU. NEB SCH ×4 (05:06→20:52)
[2018-11-29 05:10] LABS: ALBUMIN 2.7 g/dL (3.4-5.0); ALBUMIN/GLOBULIN RATIO 0.7 (1.0-1.7); CALCIUM 7.4 mg/dL (8.5-10.1); GFR 59.4; POTASSIUM 4.1 mmol/L (3.5-5.1); TOTAL BILIRUBIN 0.2 mg/dL (0.2-1.0); TOTAL PROTEIN 6.4 g/dL (6.4-8.2)
[2018-11-29 05:15] VITALS: BP 111/77
--- NOTE | 2018-11-29 05:28 | RAD ---
Chest AP portable at 2102: Reason for examination: Short of breath. Comparison is made to previous study dated 10/27/2015. The heart size is normal. Mediastinum is unremarkable. Lung solis continue show some elevation of the right hemidiaphragm which appears be more prominent than on previous exam and there are some linear atelectasis at the right lung base. The left lung field is clear. No acute bony abnormalities are seen. Impression: Increased elevation of the right hemidiaphragm with some linear atelectasis at the right lung base. Electronically signed by: Tonya Tuttle MD (11/29/2018 5:25 AM) [facility]
[2018-11-29 05:36] LABS: BASO # 0.4 x10^3/uL (0.0-0.2); BASO % 3 % (0-3); EOS # 0.4 x10^3/uL (0.0-0.7); EOS % 3 % (0-3); HEMATOCRIT 34.5 % (36.0-47.0); LYMPH # 2.4 x10^3/uL (1.0-4.8); LYMPH % 18 % (24-48); MEAN CORPUSCULAR HEMOGLOBIN 30 pg (25-35); MEAN CORPUSCULAR HGB CONC 32 g/dL (31-37); MEAN CORPUSCULAR VOLUME 93 fL (79-100); MONO # 0.6 x10^3/uL (0.0-1.1); MONO % 5 % (0-9); NEUT # 9.2 x10^3uL (1.8-7.7); NEUT % 71 % (31-73); PLATELET COUNT 295 x10^3/uL (140-400); RED BLOOD COUNT 3.71 x10^6/uL (3.50-5.40)
[2018-11-29] MEDS: FLUTICASONE 50MCG/NASAL SPRAY 16GM BOTTLE. NS SCH (08:17)
[2018-11-29] MEDS: SUCRALFATE 1 GM/10 ML ORAL.SUSP. PO SCH ×4 (08:17→21:27)
[2018-11-29] MEDS: PANTOPRAZOLE 40 MG TABLET. PO SCH ×2 (08:18→18:13)
[2018-11-29] MEDS: DULoxetine HCL 60 MG CAPSULE.DR PO SCH ×2 (08:18→21:30)
[2018-11-29] MEDS: RIVAROXABAN 15 MG TABLET. PO SCH (08:18)
[2018-11-29] MEDS: PREGABALIN 75 MG CAPSULE PO SCH ×2 (08:18→21:28)
[2018-11-29] MEDS: METOPROLOL TART IMMED RELEASE 50 MG TABLET PO SCH (08:19)
[2018-11-29] MEDS: LIDOCAINE (700MG/PATCH) PATCH. TP SCH (08:19)
[2018-11-29] MEDS: LINACLOTIDE 145 MCG CAPSULE. PO SCH (08:20)
[2018-11-29] MEDS: INSULIN LISPRO 300 UNITS/3 ML VIAL. SQ SCH ×3 (08:26→18:15)
[2018-11-29] MEDS ORDERED: ATORVASTATIN CALCIUM 10 MG TABLET. PO SCH (09:00)
[2018-11-29] MEDS ORDERED: FLUTICASONE FUROATE 100mcg/INH ELLIPTA INHALER. INH SCH (09:00)
[2018-11-29 10:52] VITALS: BP 124/89
[2018-11-29] MEDS ORDERED: ALBUTEROL SULFATE 2.5 MG/3 ML NEBU. IH PRN (11:15)
[2018-11-29] MEDS: BUDESONIDE 0.5 MG/2 ML NEBU NEB SCH ×2 (11:18→20:00)
[2018-11-29 11:52] LABS: INFLUENZA A PATIENT NEGATIVE (NEGATIVE); INFLUENZA B PATIENT NEGATIVE (NEGATIVE)
--- NOTE | 2018-11-29 12:04 | HP ---
ADMIT DATE: 11/29/2018 HISTORY OF PRESENT ILLNESS: The patient is a 48-year-old female patient who came to the Emergency Room on account of abnormal lab work. She was seen by her primary care physician and has had blood work drawn and was contacted because her white cell count was elevated at 17,000. She also had abnormal liver and kidney function, and therefore, the patient was advised to come to the Emergency Room. On questioning her, the patient states that she has been feeling tired, short of breath, had stuffy nose and sore throat. She also says somewhat nauseous, but denied any nausea or vomiting. She apparently was admitted to [facility] approximately a month and half ago for sepsis of unknown source. She was concerned. The patient, however, denied any dizziness or lightheadedness, although she said that she was very unsteady on her feet. She apparently has broken her ankle recently, had been in a Velcro splint mechanism for that. She does have a remote history of pulmonary embolism, but is not currently on any anticoagulant. She has a history of bronchial asthma, COPD, and stopped smoking approximately 8 months ago. She was evaluated in the Emergency Room and had had her labs repeated. In fact, when she came, her white cell count was 14,900 with normal manual differential. Her chemistry showed that she has creatinine slightly elevated at 1.1. Her liver enzymes were slightly elevated. Her prothrombin time, INR, and aPTT were normal. D-dimer slightly elevated at 0.56. Urinalysis was essentially unremarkable. Urine test was negative, and her chest x-ray showed elevation of the right hemidiaphragm with some linear atelectasis at the right lung base. The patient was admitted with lactic acidosis, hyperglycemia, leukocytosis, and generalized weakness. PAST MEDICAL HISTORY: Significant for recent admission with sepsis of unknown etiology in July 2018 to [facility]. She is known to have type 2 diabetes mellitus, hypertension, hyperlipidemia, morbid obesity, obstructive sleep apnea. She also has history of bronchial asthma/COPD. PAST SURGICAL HISTORY: Significant for multiple ovarian cysts removal and 3 C-sections. She had total abdominal hysterectomy, bilateral salpingo-oophorectomy. She has back surgery, cholecystectomy, and appendectomy. ALLERGIES: She is allergic to AZITHROMYCIN, CODEINE, AND MORPHINE. MEDICATIONS: She is currently on following medications: She is on albuterol sulfate 2 puffs every 4-6 hours, rivaroxaban 15 mg daily. She is on pravastatin 20 mg at bedtime, metoprolol tartrate 100 mg at bedtime, ibuprofen 800 mg 3 times a day, oxycodone/APAP 5/325 one tablet; she takes 2 tablets every 6 hours. She is on Percocet 5/325 one tablet every 6 hours, tramadol 50 mg every 6 hours. She is on pregabalin 150 mg twice a day, duloxetine 60 mg twice a day, nortriptyline 50 mg at bedtime. She is on alprazolam 0.5 mg 3 times a day. She is on Wixela 500/50 one inhalation twice a day. She is on Flonase 2 sprays to each nostril once a day, ondansetron 8 mg every 8 hours. She is on sucralfate 1 gram in 10 mL oral suspension 4 times a day before meals and bedtime. She is on Protonix 40 mg twice a day and linaclotide for Linzess 145 mcg once a day. She is on NovoLog FlexPen before meals and Lidoderm patch 1 patch topically for 12 hours and off for 12 hours. She is on Toviaz 8 mg tablet once a day. FAMILY HISTORY: She has 2 brothers and 3 sisters. One brother is older and the rest are younger; all have hypertension and diabetes. Her father at the age of 60 due to massive myocardial infarction. Mother is still alive in her 70s and has diabetes and ovarian, liver, and thyroid cancer. SOCIAL HISTORY: She is , has 1 daughter and 2 sons. She quit smoking about 8 months ago. She does not drink alcohol or use any recreational drugs. She is a daqa-ex-kfwy mom. REVIEW OF SYSTEMS: The patient denied any blurring of vision, cataract, glaucoma, or macular degeneration. Denied any earache, tinnitus, or sensorineural deafness. Denied any nosebleeds, but did complain of stuffy nose and sore throat. Has had some nausea, but no vomiting. Denied any diarrhea or constipation. Denied any hematemesis, melena, or hematochezia. Denied any dysuria, frequency, or hematuria. Denied any chest pain. Did complain of shortness of breath, but denied any cough, phlegm, or hemoptysis. Did complain of unsteady on her feet, feeling as if she is drunk, but denied any syncope or fall. PHYSICAL EXAMINATION: GENERAL: On arrival to the Emergency Room, she looked well and was clearly in no apparent respiratory distress, slightly pale, but no jaundice, cyanosis, or thyromegaly. No jugular venous distention. No limb edema. VITAL SIGNS: Her heart rate was 118, blood pressure was 120/86, temperature was 97.8, respiratory rate was 22, and oxygen saturation was 94%. HEAD, EYES, EARS, NOSE, AND THROAT: Normocephalic, atraumatic. NECK: Supple. HEART: Showed normal first and second heart sounds with no gallop, rub, or murmur. CHEST: Clear to auscultation. No crepitation or rhonchi. ABDOMEN: Distended and soft with tenderness mostly in the right upper quadrant. There is no guarding or rigidity. No organomegaly. All hernial orifices are intact. Bowel sounds normal. NEUROLOGIC: She was awake, alert, responding appropriately. All cranial nerves intact. EXTREMITIES: She moves extremities without difficulty. LABORATORY DATA: Her lab work showed a white cell count 14,900, hemoglobin 12, hematocrit 38, MCV 91, and platelet count of 356,000 with a normal manual differential. Her serum sodium was 136, potassium 4.9, chloride 98, bicarbonate 32, anion gap of 6, BUN 14, creatinine 1.1, estimated GFR was 53 mL per minute. Her glucose was high at 348. Calcium was 8.2. Her lactic acid was high at 2.8. Her total bilirubin is normal. AST, ALT, and alkaline phosphatase slightly elevated. Her beta-natriuretic peptide was 118, total protein was 7, albumin was 3.3. Her prothrombin time was 10.6, INR 1, aPTT was 30, and D-dimer was slightly elevated at 0.56. Her urinalysis showed the urine was yellow, clear with a pH of 6, specific gravity of 1.020. The urine was negative for protein. There was large amount of glucose, negative for ketones, trace amount of blood, negative for nitrite and bilirubin. Also, the urine was negative for leukocyte esterase. There is 1-2 rbc's, occasional wbc's, and very few bacteria. Her chest x-ray showed that the heart size is normal, mediastinum is unremarkable. Lung solis are clear. Continued to show some elevation of the right hemidiaphragm, which appears to be more prominent than on previous exams and there are some linear atelectasis at the right lung base. The left lung field is clear. No acute bony abnormalities are seen. ASSESSMENT AND PLAN: So, the patient was basically admitted with generalized weakness, shortness of breath. She has also leukocytosis, abnormal liver and kidney function, and hyperglycemia. Her urine was essentially unremarkable. Her chest x-ray was clear, not clear as to whether she has any obvious source of infection. I will swab her nose to make sure that, given that she has headache, stuffy nose, cough, and sore throat, that the influenza might be playing a role here. We will do that and we will decide the further management accordingly. We will continue with IV fluid, continue with all her medications. JD GUNDERSON MD DR: INGRIS/felipe JOB#: [id number] / [id number]
[2018-11-29 12:47] LABS: C REACTIVE PROTEIN 16.5 mg/L (0-3.3)
--- NOTE | 2018-11-29 13:06 | PN ---
DATE: 11/29/2018 SUBJECTIVE: The patient is resting, almost flat in bed, in no apparent respiratory distress. She continued to complain of a sore throat, stuffy nose, headache, some nausea, but no vomiting and mild discomfort in her right upper quadrant. PHYSICAL EXAMINATION: GENERAL: When I examined her, she was pale, but no jaundice, cyanosis or thyromegaly. No jugular venous distension. No lower limb edema. VITAL SIGNS: Her heart rate was 110, blood pressure was 124/89, temperature was 97.9, respiratory rate was 20, and oxygen saturation was 93%. HEAD, EYES, EARS, NOSE AND THROAT: Showed normocephalic, atraumatic. NECK: Supple. HEART: Showed normal first and second heart sounds with no gallop, rub or murmur. CHEST: Clear to auscultation. No crepitation or rhonchi. ABDOMEN: Distended, soft, nontender. No guarding or rigidity. No organomegaly. All hernial orifice intact. Bowel sounds normal. NEUROLOGIC: She is awake, alert. All her cranial nerves intact. She moves extremities without difficulty. LABORATORY DATA: Her lab work this morning showed a white cell count of 13,000, hemoglobin 11, hematocrit 34, MCV 93, and platelet count 295,000. Her chemistry showed a serum sodium 133, potassium 4.1, chloride 99, bicarbonate 27, anion gap of 7, BUN 12, creatinine 1, estimated GFR was 59 mL per minute. Her glucose was 392, calcium was 7.4. Total bilirubin and alkaline phosphatase was normal. AST, ALT slightly elevated. Total protein was 6.4, albumin 2.7. PLAN: To continue with all her current plan of management. I will arrange for her to have nasal swabs for the flu, so far there is no evidence of any focus of infection. She somehow seemed to be in sinus tachycardia, although she is getting 125 mL of normal saline hourly. JD GUNDERSON MD DR: INGRIS/felipe JOB#: [id number] / [id number]
[2018-11-29] MEDS ORDERED: CONTRAST GIVEN MC PRN (14:00)
[2018-11-29] MEDS ORDERED: IOHEXOL 350 MG/ML 100 ML VIAL. IV ONE (14:00)
[2018-11-29 14:19] VITALS: BP 116/85
--- NOTE | 2018-11-29 15:03 | RAD ---
Exam performed: CT pulmonary angiogram of the chest with contrast. Date: 11/29/2018. Comparison: Chest x-ray from 11/28/2018 Indication: Shortness of breath and elevated d-dimer Technique: Contiguous helical acquisitions are obtained through the chest during intravenous administration of [ 75 cc of ] cc of [ Omnipaque 300 ] . [Sagittal and coronal reformatted images and ] MIP images were obtained and reviewed Findings: The structures at the thoracic inlet including both lobes of the thyroid gland appear normal. Pulmonary arterial opacification is adequate to evaluate for pulmonary embolus. There is no evidence for pulmonary embolism. The heart is normal in size. No pericardial effusion is seen. No mediastinal or hilar lymphadenopathy is seen. 4 mm soft tissue density nodule in the lateral right lower lobe. There are linear opacities in both lower lobes likely atelectasis. No infiltrates or pleural effusions are seen. Upper abdominal structures demonstrate diffuse hepatic steatosis. There is probable splenomegaly.. Osseous structures appear intact. Impression: 1. Study is negative for pulmonary embolism. 2. Tiny 4 mm nodule in the lateral right lower lobe. Correlate with patient's risk factors and follow-up according to Fleischner Society recommendation 3. Diffuse hepatic steatosis. PQRS Compliance Statement: One or more of the following individualized dose reduction techniques were utilized for this examination: 1. Automated exposure control 2. Adjustment of the mA and/or kV according to patient size 3. Use of iterative reconstruction technique Fleischner Society recommendations for pulmonary nodules: In a low risk patient: <4mm- No follow up required. >4-6mm- 12 month follow up, if unchanged, no further follow up. >6-8mm- 6-12 month follow up, then at 18-24 months if no change. >8mm- 3, 9, 24 month follow up or consideration of PET/CT. In a high risk patient: <4mm- 12 month follow up, if unchanged then no further follow up. >4-6mm- 6-12 month follow up, then at 18-24 months if no change. >6-8mm- 3-6 month follow up, then at 9-12 months and 24 months if no change. >8mm- 3, 9, 24 month follow up or consideration of PET/CT. Electronically signed by: Cassidy Crowley MD (11/29/2018 3:00 PM) [facility]
[2018-11-29] MEDS: OXYBUTYNIN CHLORIDE 5 MG TABLET PO SCH ×2 (15:10→21:30)
[2018-11-29 20:48] VITALS: BP 107/72
[2018-11-29] MEDS: NORTRIPTYLINE 25 MG CAPSULE PO SCH (21:32)
--- NOTE | 2018-11-29 22:35 | EKG ---
[address] [address] Test Date: 2018-11-28 Test Time: 21:16:29 Pat Name: OWEN HERNANDEZ Department: Room: 120 A Gender: F Rn Maternal Child: BRIAN : 1970 Requested By: AMEENA DOMINGUEZ Order Number: [id number] Reading MD: Carter Celaya MD Measurements Intervals [place] Rate: 112 P: 24 NE: 148 QRS: 81 QRSD: 96 T: 68 QT: 340 QTc: 466 Interpretive Statements SINUS TACHYCARDIA CONSISTENT WITH INFERIOR INFARCT Electronically Signed On 12-09-2018 12:55:20 CDT by Carter Celaya MD
--- NOTE | 2018-11-29 22:40 | RAD ---
VENOUS LOWER EXT BILATERAL 11/29/2018 12:33 PM Clinical Information: Elevated d-dimer and shortness of breath. Comparison: None. Technique: Multiple grayscale, color Doppler, and spectral Doppler sonographic images of the lower extremity venous structures were obtained. Findings: The right common femoral, femoral, and popliteal veins exhibit normal compression, respiratory phasicity, and augmentation. No intraluminal thrombi are identified. Color Doppler flow is demonstrated in the right posterior tibial veins. The left common femoral, femoral, and popliteal veins exhibit normal compression, respiratory phasicity, and augmentation. No intraluminal thrombi are identified. Color Doppler flow is demonstrated in the left posterior tibial veins. Greater saphenous veins are patent at the saphenofemoral junction. Impression: 1. No evidence of deep venous thrombosis. Electronically signed by: Oumou Desri MD (11/29/2018 10:37 PM) [facility]
[2018-11-29 23:12] VITALS: BP 118/79
[2018-11-30 00:07] LABS: HEMOGLOBIN A1C 11.3 % (4.8-5.6)
[2018-11-30] MEDS: IPRATRPIUM/ALBUTEROL 0.5/2.5MG 3 ML NEBU. NEB SCH (05:03)
[2018-11-30 06:06] VITALS: BP 114/71
[2018-11-30] MEDS: ALPRAZolam 0.5 MG TABLET PO PRN (06:11)
[2018-11-30 07:14] LABS: ALBUMIN 2.5 g/dL (3.4-5.0); ALBUMIN/GLOBULIN RATIO 0.8 (1.0-1.7); CALCIUM 7.2 mg/dL (8.5-10.1); CREATININE 0.8 mg/dL (0.6-1.0); GFR 76.9; TOTAL BILIRUBIN 0.1 mg/dL (0.2-1.0); TOTAL PROTEIN 5.7 g/dL (6.4-8.2)
[2018-11-30 07:33] LABS: HEMATOCRIT 39.5 % (36.0-47.0); HEMOGLOBIN 11.3 g/dL (12.0-15.5); RED BLOOD COUNT 3.78 x10^6/uL (3.50-5.40); RED CELL DISTRIBUTION WIDTH 16.7 % (11.5-14.5); WHITE BLOOD COUNT 10.3 x10^3/uL (4.0-11.0)
[2018-11-30] MEDS: METOPROLOL TART IMMED RELEASE 50 MG TABLET PO SCH (08:10)
[2018-11-30] MEDS: SUCRALFATE 1 GM/10 ML ORAL.SUSP. PO SCH ×4 (08:10→21:01)
[2018-11-30] MEDS: RIVAROXABAN 15 MG TABLET. PO SCH (08:11)
[2018-11-30] MEDS: PANTOPRAZOLE 40 MG TABLET. PO SCH ×2 (08:11→16:27)
[2018-11-30] MEDS: LINACLOTIDE 145 MCG CAPSULE. PO SCH (08:11)
[2018-11-30] MEDS: FLUTICASONE 50MCG/NASAL SPRAY 16GM BOTTLE. NS SCH (08:11)
[2018-11-30] MEDS: OXYBUTYNIN CHLORIDE 5 MG TABLET PO SCH ×3 (08:11→21:04)
[2018-11-30] MEDS: DULoxetine HCL 60 MG CAPSULE.DR PO SCH ×2 (08:11→20:59)
[2018-11-30] MEDS: LIDOCAINE (700MG/PATCH) PATCH. TP SCH (08:12)
[2018-11-30] MEDS: INSULIN LISPRO 300 UNITS/3 ML VIAL. SQ SCH ×3 (08:19→17:24)
[2018-11-30 08:52] LABS: % BANDS 1 % (0-9); % BASOS 1 % (0-3); % EOS 6 % (0-5); % LYMPHS 15 % (24-48); % MONOS 14 % (0-10); % SEGS 73 % (35-66); HYPOCHROMIA PRESENT; PLT ESTIMATE ADEQUATE (ADEQUATE)
[2018-11-30] MEDS: PREGABALIN 75 MG CAPSULE PO SCH ×2 (09:48→21:00)
[2018-11-30] MEDS: BUDESONIDE 0.5 MG/2 ML NEBU NEB SCH ×2 (10:34→21:25)
[2018-11-30 11:48] VITALS: BP 89/62
[2018-11-30] MEDS: IV NORMAL SALINE 1,000ML 1,000 ML IV SCH (11:59)
--- NOTE | 2018-11-30 13:41 | PN ---
DATE: 11/30/2018 SUBJECTIVE: The patient is resting slightly propped up in bed, in no apparent respiratory distress. She is awake, alert, and responding appropriately. She denied any complaint and has slept very well. We have extensively investigated her and her lab work has essentially normalized. Her white cell count came down from 17,000 to 10,000. Her kidney function also improved such that her creatinine is down from 1.1 to 0.8. Her blood sugar seems to be reasonably controlled. Urinalysis was essentially unremarkable. PHYSICAL EXAMINATION: VITAL SIGNS: When I examined her, this morning, she continued to have tachycardia with a heart rate of 116, blood pressure was 114/71, temperature was 97.9, respiratory rate was 20, and oxygen saturation was 99% on 2 liters of oxygen. HEAD, EYES, EARS, NOSE, AND THROAT: Normocephalic, atraumatic. NECK: Supple. HEART: Showed normal first and second heart sounds with no gallop, rub, or murmur. CHEST: Clear to auscultation. No crepitation or rhonchi. ABDOMEN: Distended, soft, nontender. No guarding or rigidity. No organomegaly. All hernial orifice intact. Bowel sounds normal. NEUROLOGIC: She was awake, alert, responding appropriately. All cranial nerves intact. She moves extremities without difficulty. She ambulates without assistance or assistive devices. Her intake over the last 24 hours was 3120, no output was recorded. LABORATORY DATA: As of this morning, her white cell count is down to 10,300, hemoglobin 11, hematocrit 39, MCV 105, and platelet count 265,000. Her sedimentation rate was 37 mm per hour. Her serum sodium was 139, potassium 4, chloride 106, bicarbonate 24, anion gap of 9, BUN 6, creatinine 0.8, estimated GFR was 76 mL per minute. Her glucose was 143, calcium was 7.2. Total bilirubin, AST, ALT, alkaline phosphatase were normal. Total protein was 5.7, albumin was 2.5. Lipase was 48. ASSESSMENT: The patient was admitted to the Emergency Room with abnormal lab work including leukocytosis, abnormal kidney function and liver enzymes. The patient was treated with IV fluid and her lab works are steadily improved. We have extensively investigated her. Her chest x-ray was unremarkable. Urinalysis was unremarkable. Bilateral venous Doppler ultrasound of both lower extremities was negative for DVT. She had CT-angio of the chest, abdomen, and pelvis, which was essentially unremarkable. There is definitely no evidence of pulmonary emboli. No pneumonia, pneumothorax, or pleural effusion. CT scan of the chest and abdomen showed fatty liver as well as slight splenomegaly, but no other abnormality detected. PLAN: My plan is to continue with IV fluid. Repeat all her lab works again. She continued to have tachycardia, which is concerning for me and I will do a 12-lead EKG, and also 3 sets of cardiac enzymes and also check her thyroid function. JD GUNDERSON MD DR: INGRIS/felipe JOB#: [id number] / [id number]
[2018-11-30 15:40] VITALS: BP 108/70
[2018-11-30 15:53] VITALS: BP 108/70
[2018-11-30 20:50] VITALS: BP 117/79
[2018-11-30] MEDS: NORTRIPTYLINE 25 MG CAPSULE PO SCH (21:01)
[2018-12-01] MEDS: ALPRAZolam 0.5 MG TABLET PO PRN ×2 (01:39→08:53)
[2018-12-01] MEDS: IV NORMAL SALINE 1,000ML 1,000 ML IV SCH ×2 (01:39→14:10)
[2018-12-01 05:10] VITALS: BP 121/87
[2018-12-01 06:56] LABS: ALBUMIN 2.5 g/dL (3.4-5.0); ALBUMIN/GLOBULIN RATIO 0.7 (1.0-1.7); CALCIUM 7.9 mg/dL (8.5-10.1); CREATININE 0.7 mg/dL (0.6-1.0); GFR 89.7; HEMATOCRIT 33.5 % (36.0-47.0); HEMOGLOBIN 10.8 g/dL (12.0-15.5); POTASSIUM 3.7 mmol/L (3.5-5.1); RED BLOOD COUNT 3.65 x10^6/uL (3.50-5.40); RED CELL DISTRIBUTION WIDTH 15.1 % (11.5-14.5); TOTAL BILIRUBIN 0.2 mg/dL (0.2-1.0); TOTAL PROTEIN 6.1 g/dL (6.4-8.2); WHITE BLOOD COUNT 12.4 x10^3/uL (4.0-11.0)
[2018-12-01] MEDS: INSULIN LISPRO 300 UNITS/3 ML VIAL. SQ SCH ×2 (08:00→11:54)
[2018-12-01] MEDS: LINACLOTIDE 145 MCG CAPSULE. PO SCH (08:43)
[2018-12-01] MEDS: PANTOPRAZOLE 40 MG TABLET. PO SCH (08:43)
[2018-12-01] MEDS: SUCRALFATE 1 GM/10 ML ORAL.SUSP. PO SCH ×2 (08:43→11:53)
[2018-12-01] MEDS: PREGABALIN 75 MG CAPSULE PO SCH (08:43)
[2018-12-01] MEDS: METOPROLOL TART IMMED RELEASE 50 MG TABLET PO SCH (08:44)
[2018-12-01] MEDS: DULoxetine HCL 60 MG CAPSULE.DR PO SCH (08:44)
[2018-12-01] MEDS: RIVAROXABAN 15 MG TABLET. PO SCH (08:44)
[2018-12-01] MEDS: FLUTICASONE 50MCG/NASAL SPRAY 16GM BOTTLE. NS SCH (08:44)
[2018-12-01] MEDS: LIDOCAINE (700MG/PATCH) PATCH. TP SCH (08:44)
[2018-12-01] MEDS: OXYBUTYNIN CHLORIDE 5 MG TABLET PO SCH ×2 (08:44→14:05)
[2018-12-01] MEDS: BUDESONIDE 0.5 MG/2 ML NEBU NEB SCH (09:58)
[2018-12-01 10:43] VITALS: BP 124/79
[2018-12-01 15:03] VITALS: BP 105/77
--- NOTE | 2018-12-01 15:58 | DS ---
DATE OF DISCHARGE: 12/01/2018 HOSPITAL COURSE: The patient is a 48-year-old female patient who was seen at her primary care physician and lab works were ordered, which showed that she has marked leukocytosis, abnormal liver enzymes, also acute kidney injury, and was instructed to come to the Emergency Room of [facility] for further evaluation and treatment. In the Emergency Room, her lab work showed that she had indeed leukocytosis with a white cell count of 14,900. She did have also acute kidney injury, hyperglycemia, and mildly elevated liver enzymes including AST, ALT, alkaline phosphatase. Her lactic acid was also high at 2.8 and therefore, the patient was started on IV fluid. We did panculture her, but so far, all her blood cultures are negative. She remained hemodynamically stable and afebrile. Her white cell count has steadily improved without any IV antibiotic treatment and her kidney function has also steadily improved such that her creatinine came down from 1.1 to 0.7, and as she remained hemodynamically stable and her lactic acid has normalized, a decision was made to discharge her home to follow with her primary care physician. PHYSICAL EXAMINATION: GENERAL: When I saw her today, she was resting slightly propped up in bed, in no apparent respiratory distress. No pallor, jaundice, cyanosis or thyromegaly. No jugular venous distention. No lower limb edema. VITAL SIGNS: Her heart rate was 88, blood pressure was 124/79, temperature was 97.6, respiratory rate was 18, and oxygen saturation was 94%. HEAD, EYES, EARS, NOSE, AND THROAT: Normocephalic, atraumatic. NECK: Supple. HEART: Showed normal first and second heart sounds. No gallop or murmur. CHEST: Clear to auscultation. No crepitation or rhonchi. ABDOMEN: Distended, soft, nontender. NEUROLOGIC: She was awake, alert, responding appropriately. All cranial nerves are intact. She moves extremities without difficulty. She ambulates without assistance or assistive devices. Her intake and output were incompletely recorded. LABORATORY DATA: As of this morning, her serum sodium was 143, potassium 3.7, chloride 107, bicarbonate 30, anion gap of 6, BUN 6, creatinine 0.7, estimated GFR was 89 mL per minute. Her glucose was 165, calcium was 7.9. Total bilirubin, AST, ALT, alkaline phosphatase were normal. Total protein was 6.1, albumin was 2.5. Her white cell count is slightly elevated at 12.4. However, her hemoglobin was 10.8, hematocrit 33, MCV 92, and platelet count of 308,000. DISCHARGE MEDICATIONS: The patient will be discharged home to continue on all her home medications including nortriptyline 50 mg at bedtime, oxybutynin 5 mg 3 times a day, albuterol sulfate 2.5 mg every 4 hours, pregabalin 150 mg twice a day, metoprolol tartrate 100 mg once a day, Flonase 2 sprays to each nostril once a day, rivaroxaban 15 mg daily, lidocaine patch daily, duloxetine 60 mg twice a day, Pulmicort 0.5 mg twice a day. She is on Humalog insulin as insulin sliding scale before meals. Sucralfate 1 gram 4 times a day, Protonix 40 mg twice a day, linaclotide 145 mcg daily, oxycodone/APAP 5/325 one to two tablets hours. She is on tramadol 50 mg every 6 hours, oxycodone 1 tablet every 6 hours, ondansetron 8 mg every 8 hours, ibuprofen 800 mg 3 times a day, alprazolam 0.5 mg 3 times a day. ASSESSMENT: Acute kidney injury, resolved. Her creatinine came down from 1.1 to 0.7. Lactic acidosis resolved. Abnormal liver enzymes, resolved. Her AST, ALT, alkaline phosphatase all have normalized. Her D-dimer was slightly elevated; however, we did CT scan of the chest, abdomen and pelvis and that was negative for pulmonary embolism. She has diffuse hepatic steatosis, otherwise no other abnormality. She is obviously known to have type 2 diabetes mellitus, hypertension, hyperlipidemia, morbid obesity, obstructive sleep apnea, and history of bronchial asthma/chronic obstructive pulmonary disease. JD GUNDERSON MD DR: INGRIS/felipe JOB#: [id number] / [id number]
== END 2018-12-01 17:00 | disposition home or self-care (01) | DRG 682 ==
LOC: ER 20:30 → 1 SOUTH 22:56
PROVIDERS: ADMIT Internal Medicine; ATTEND Internal Medicine
DX: N17.9 Acute kidney failure, unspecified (principal); E43 Unspecified severe protein-calorie malnutrition; E87.2 Acidosis; J98.11 Atelectasis; Z68.42 Body mass index [BMI] 45.0-49.9, adult; E11.65 Type 2 diabetes mellitus with hyperglycemia; E66.01 Morbid (severe) obesity due to excess calories; E78.00 Pure hypercholesterolemia, unspecified; E78.5 Hyperlipidemia, unspecified; G47.33 Obstructive sleep apnea (adult) (pediatric); I10 Essential (primary) hypertension; I25.10 Atherosclerotic heart disease of native coronary artery without angina pectoris; J44.9 Chronic obstructive pulmonary disease, unspecified; K76.0 Fatty (change of) liver, not elsewhere classified; F41.9 Anxiety disorder, unspecified; Z80.8 Family history of malignant neoplasm of other organs or systems; Z82.49 Family history of ischemic heart disease and other diseases of the circulatory system; Z83.3 Family history of diabetes mellitus; Z86.711 Personal history of pulmonary embolism; Z87.442 Personal history of urinary calculi; Z87.891 Personal history of nicotine dependence; Z90.49 Acquired absence of other specified parts of digestive tract; Z90.710 Acquired absence of both cervix and uterus; Z88.5 Allergy status to narcotic agent
CPT/HCPCS: 36415; 71045; 71275; 74177; 80053; 81001; 81025; 82947; 83036; 83605; 83615; 83690; 83880; 84484; 85007; 85025; 85027; 85379; 85610; 85651; 85730; 86140; 87040; 87804; 93005; 93970; 94640; 94760; 96361; 96365; 96375; J0696; J1815; J1885; J1956; J3010; J7620; J7626; Q0162; Q9967; 99285-25; J7030

== ENCOUNTER 2018-12-28 18:52 | Observation (INO) | payer OTHER ==
[~2018-12-28] VITALS: Ht 165.1 cm; Wt 118.8 kg
[~2018-12-28 18:52] MED LIST changes: +ALBU2.5V8 IH; +DULO60CA6 PO; +FESO8TAB PO; +FLUT1BLS10 IH; +FLUT9.9S NS; +INSU100I17 SQ; +LIDO700A21 TP; +LINA145C PO; +METO100T7 PO; +NORT25CA3 PO; +ONDA4TAB12 PO; +OXYC1TAB15 PO; +PREG150C PO; +SUCR1ORA5 PO
[2018-12-28] MEDS ORDERED: IV NORMAL SALINE 1,000ML 1,000 ML IV SCH (19:21)
--- NOTE | 2018-12-28 19:28 | PHYS DOC ---
Past History Past Medical History: Anxiety, CAD, Diabetes, High Cholesterol, Hypertension, Kidney Stones, Ovarian Cyst, Pneumonia, Other Additional Past Medical Histor: pulmonary embolism, tachycardia, NERVE DAMAGE Past Surgical History: Appendectomy, Cholecystectomy, , Hysterectomy, Other Additional Past Surgical Histo: OVARIAN CYSTS, BACK SX Smoking: Quit Less Than 1 Year Alcohol Use: None Drug Use: None Adult General Chief Complaint Chief Complaint: ABDOMINAL PAIN HPI HPI Patient is a 48-year-old female presents complaining of right upper quadrant abdominal pain has been waxing and waning for the past several days. No relief with her home tramadol. No nausea or vomiting. Worse with movement as well as exertion. Patient reports being more tired than usual. No swelling in legs feet or ankles. No nausea or vomiting. No diaphoresis. Patient also has some left lower quadrant abdominal pain. Looser than usual stools but not watery stool. No blood in the stool. No recent travel. Nothing makes the symptoms better or worse. Symptoms are moderate to severe in intensity. She has surgical history significant for appendectomy and cholecystectomy. She has a baseline tachycardia for which she is on beta asiya therapy.[] Review of Systems Review of Systems Constitutional: Denies fever or chills [] Eyes: Denies change in visual acuity, redness, or eye pain [] HENT: Denies nasal congestion or sore throat [] Respiratory: Denies cough or shortness of breath [] Cardiovascular: No additional information not addressed in HPI [] GI: See history of present illness[] : Denies dysuria or hematuria [] Musculoskeletal: Denies back pain or joint pain [] Integument: Denies rash or skin lesions [] Neurologic: Denies headache, focal weakness or sensory changes [] Endocrine: Denies polyuria or polydipsia [] All other systems were reviewed and found to be within normal limits, except as documented in this note. Allergies Allergies Allergies Coded Allergies Type Severity Reaction Last Updated Verified azithromycin Allergy Intermediate HIVES 11/29/18 Yes codeine Allergy Intermediate 11/29/18 Yes morphine Allergy Intermediate Palpitations 03/18/15 Yes Physical Exam Physical Exam Constitutional: Well developed, well nourished, no acute distress, non-toxic appearance. [] HENT: Normocephalic, atraumatic, bilateral external ears normal, oropharynx moist, no oral exudates, nose normal. [] Eyes: PERRLA, EOMI, conjunctiva normal, no discharge. [] Neck: Normal range of motion, no tenderness, supple, no stridor. [] Cardiovascular:Heart rate is tachycardic with a regular rhythm, no murmur [] Lungs & Thorax: Bilateral breath sounds clear to auscultation [] Abdomen: Bowel sounds normal, soft, tenderness in the epigastric and right upper quadrant region as well as the left lower quadrant. There is no rebound, no guarding, no rigidity, no masses, no pulsatile masses. [] Skin: Warm, dry, no erythema, no rash. [] Back: No tenderness, no CVA tenderness. [] Extremities: No tenderness, no cyanosis, no clubbing, ROM intact, no edema. [] Neurologic: Alert and oriented X 3, normal motor function, normal sensory function, no focal deficits noted. [] Psychologic: Affect normal, judgement normal, mood normal. [] Current Patient Data Vital Signs Vital Signs Date Time Temp Pulse Resp B/P (MAP) Pulse Ox O2 Delivery O2 Flow Rate FiO2 12/28/18 19:03 133 24 95 Room Air EKG EKG EKG shows sinus tachycardia at 126 bpm, rightward axis, no ST elevation. Interpreted by me at 1908.[] Radiology/Procedures Radiology/Procedures CT ABD PEL W/ORAL CONTRST ONLY Clinical Indication: Right upper quadrant and left lower quadrant abdominal pain. History of cholecystectomy and appendectomy. Comparison: CT abdomen and pelvis without contrast, July 25, 2016. CT chest abdomen and pelvis with contrast, November 29, 2018. Technique: Helical CT imaging of the abdomen and pelvis is performed without IV contrast. Oral contrast is administered. Findings: Evaluation of solid organs is limited without IV contrast, decreasing sensitivity for detection of pathology. There is a 3 mm nodule in the right lung only seen on the first image, stable. 3 mm nodule along the left major fissure is also stable, image 5. Lung bases otherwise clear. Cardiac size normal. Cholecystectomy. There is fatty infiltration of the liver and hepatomegaly. Spleen size is normal. The pancreas, adrenal glands, and abdominal aorta caliber are normal. 3 cm left parapelvic cyst is stable. There is no hydronephrosis. There is no renal calculus. The ureters are normal. Stomach unremarkable. No dilated small bowel. Distal colon is decompressed, limiting evaluation. No colon wall thickening is appreciated. Appendectomy. No abdominal adenopathy or free fluid. Retroaortic left renal vein. Urinary bladder is normal. Hysterectomy. No pelvic free fluid. Vacuum disc phenomenon L5/S1. No acute bone abnormality. IMPRESSION: 1. No acute abdominal or pelvic abnormality. 2. Hepatomegaly. Fatty infiltration of the liver. 3. 3 mm noncalcified pulmonary nodules in the lung bases are stable. PROCEDURE: PORTABLE CHEST 1V Exam: Chest one view INDICATION: Right upper quadrant abdominal pain TECHNIQUE: Frontal view of the chest Comparisons: 11/28/2018 FINDINGS: The cardiomediastinal silhouette and pulmonary vessels are within normal limits. The lung and pleural spaces are clear. IMPRESSION: No acute cardiopulmonary process.[] Course & Med Decision Making Course & Med Decision Making Pertinent Labs and Imaging studies reviewed. (See chart for details) ED course: Patient arrived, was placed in bed, and tolerated exam well. Her elevated blood sugar was noted, she was given IV fluids, which improved her blood sugar. She was able to tolerate oral contrast was transported to and from CT without any complications. Given the increasing d-dimer along with the tachycardia, along with her impaired renal function, a VQ scan was ordered to evaluate for possibility of a PE. This will be performed once she is admitted. She is currently on several toe for previous pulmonary embolism. Given the constellation of findings, consultation was made with the hospitalist service for admission and further evaluation and treatment. Medical decision makin-year-old female with upper abdominal pain and a significantly elevated blood sugar. Do not think she is in geoff diabetic ketoacidosis given the normal bicarbonate and a normal pH on her blood gas. She does have small amount of ketones in the urine.[] Dragon Disclaimer Dragon Disclaimer This electronic medical record was generated, in whole or in part, using a voice recognition dictation system. Departure Departure: Impression: Primary Impression: Abdominal pain Additional Impressions: Acute kidney injury Poorly controlled diabetes mellitus Tachycardia Disposition: 09 ADMITTED INPATIENT Admitting Physician: Huber Rodriguez Condition: IMPROVED Referrals: NIYAH SALEH APRN (PCP) Problem Qualifiers Primary Impression: Abdominal pain Abdominal location: right upper quadrant Qualified Codes: R10.11 - Right upper quadrant pain ALBERTOGARYAMEENA DO Dec 28, 2018 19:28
[2018-12-28] MEDS ORDERED: ASPIRIN 81 MG TAB.CHEW PO ONE (19:30)
[2018-12-28 19:35] LABS: BASO # 0.6 x10^3/uL (0.0-0.2); BASO % 4 % (0-3); EOS # 0.4 x10^3/uL (0.0-0.7); EOS % 3 % (0-3); HEMATOCRIT 44.8 % (36.0-47.0); HEMOGLOBIN 14.4 g/dL (12.0-15.5); LYMPH # 2.7 x10^3/uL (1.0-4.8); LYMPH % 21 % (24-48); MEAN CORPUSCULAR HEMOGLOBIN 29 pg (25-35); MEAN CORPUSCULAR HGB CONC 32 g/dL (31-37); MEAN CORPUSCULAR VOLUME 91 fL (79-100); MONO # 0.5 x10^3/uL (0.0-1.1); MONO % 4 % (0-9); NEUT # 8.9 x10^3uL (1.8-7.7); NEUT % 68 % (31-73); PLATELET COUNT 388 x10^3/uL (140-400); RED BLOOD COUNT 4.92 x10^6/uL (3.50-5.40); RED CELL DISTRIBUTION WIDTH 15.3 % (11.5-14.5); WHITE BLOOD COUNT 13.1 x10^3/uL (4.0-11.0)
[2018-12-28] MEDS ORDERED: IOHEXOL 300 MG/ML 75 ML VIAL. IV ONE (19:45)
[2018-12-28] MEDS ORDERED: IOHEXOL 240 MG/ML 50ML VIAL. PO ONE ×2 (19:45→21:15)
[2018-12-28 19:57] LABS: ALBUMIN 3.5 g/dL (3.4-5.0); ALBUMIN/GLOBULIN RATIO 0.8 (1.0-1.7); ALK PHOS 115 U/L (46-116); ALT (SGPT) 55 U/L (14-59); ANION GAP 10 (6-14); AST (SGOT) 43 U/L (15-37); BLOOD UREA NITROGEN 11 mg/dL (7-20); BUN/CREATININE RATIO 8 (6-20); CALCIUM 8.8 mg/dL (8.5-10.1); CARBON DIOXIDE 28 mmol/L (21-32); CHLORIDE 95 mmol/L (98-107); CREATININE 1.3 mg/dL (0.6-1.0); GFR 43.9; LIPASE 86 U/L (73-393); MAGNESIUM 1.6 mg/dL (1.8-2.4); POTASSIUM 4.4 mmol/L (3.5-5.1); SODIUM 133 mmol/L (136-145); TOTAL BILIRUBIN 0.4 mg/dL (0.2-1.0); TOTAL PROTEIN 7.8 g/dL (6.4-8.2)
[2018-12-28] MEDS ORDERED: CONTRAST GIVEN MC PRN (20:00)
[2018-12-28 20:02] LABS: GLUCOSE 525 mg/dL (70-99)
[2018-12-28 20:05] LABS: BARBITURATES NEG (NEG); BENZODIAZEPINES NEG (NEG); CANNABINOIDS NEG (NEG); COCAINE NEG (NEG); METHADONE NEG (NEG); OPIATES NEG (NEG); PHENCYCLIDINE NEG (NEG)
--- NOTE | 2018-12-28 20:05 | RAD ---
Exam: Chest one view INDICATION: Right upper quadrant abdominal pain TECHNIQUE: Frontal view of the chest Comparisons: 11/28/2018 FINDINGS: The cardiomediastinal silhouette and pulmonary vessels are within normal limits. The lung and pleural spaces are clear. IMPRESSION: No acute cardiopulmonary process. Electronically signed by: Bethanie Vargas MD (12/28/2018 8:02 PM) [facility]
[2018-12-28 20:08] LABS: BILIRUBIN,URINE NEG (NEG); CLARITY,URINE CLEAR; COLOR,URINE YELLOW; GLUCOSE,URINE >=1000 mg/dL (NEG)
[2018-12-28 20:09] LABS: BACTERIA,URINE 0 /HPF (0-FEW); NITRITE,URINE NEG (NEG); RBC,URINE OCC /HPF (0-2); SQUAMOUS EPITHELIAL CELL,UR FEW /LPF; UROBILINOGEN,URINE 0.2 mg/dL (0.2 mg/dL); WBC,URINE OCC /HPF (0-4); YEAST,URINE PRESENT /HPF
[2018-12-28 20:10] LABS: AMPHETAMINE/METHAMPHETAMINE NEG (NEG)
[2018-12-28] MEDS ORDERED: IV NORMAL SALINE 1,000ML 1,000 ML IV ONE (21:00)
--- NOTE | 2018-12-28 21:44 | RAD ---
PQRS Compliance Statement: One or more of the following individualized dose reduction techniques were utilized for this examination: 1. Automated exposure control 2. Adjustment of the mA and/or kV according to patient size 3. Use of iterative reconstruction technique CT ABD PEL W/ORAL CONTRST ONLY Clinical Indication: Right upper quadrant and left lower quadrant abdominal pain. History of cholecystectomy and appendectomy. Comparison: CT abdomen and pelvis without contrast, July 25, 2016. CT chest abdomen and pelvis with contrast, November 29, 2018. Technique: Helical CT imaging of the abdomen and pelvis is performed without IV contrast. Oral contrast is administered. Findings: Evaluation of solid organs is limited without IV contrast, decreasing sensitivity for detection of pathology. There is a 3 mm nodule in the right lung only seen on the first image, stable. 3 mm nodule along the left major fissure is also stable, image 5. Lung bases otherwise clear. Cardiac size normal. Cholecystectomy. There is fatty infiltration of the liver and hepatomegaly. Spleen size is normal. The pancreas, adrenal glands, and abdominal aorta caliber are normal. 3 cm left parapelvic cyst is stable. There is no hydronephrosis. There is no renal calculus. The ureters are normal. Stomach unremarkable. No dilated small bowel. Distal colon is decompressed, limiting evaluation. No colon wall thickening is appreciated. Appendectomy. No abdominal adenopathy or free fluid. Retroaortic left renal vein. Urinary bladder is normal. Hysterectomy. No pelvic free fluid. Vacuum disc phenomenon L5/S1. No acute bone abnormality. IMPRESSION: 1. No acute abdominal or pelvic abnormality. 2. Hepatomegaly. Fatty infiltration of the liver. 3. 3 mm noncalcified pulmonary nodules in the lung bases are stable. Electronically signed by: Quinten Jeter MD (12/28/2018 9:41 PM) [facility]
[2018-12-28] MEDS ORDERED: 0.9 % SODIUM CHLORIDE 150ML 150 ML ONE (22:24)
[2018-12-28] MEDS ORDERED: DEXTROSE 50% 25 GM / 50ML DISP.SYRIN. IV PRN (22:30)
[2018-12-28] MEDS ORDERED: ONDANSETRON PF 4 MG/2 ML VIAL. IV PRN (22:30)
[2018-12-28] MEDS ORDERED: INSULIN REGULAR VIAL 150 UNIT in 0.9 % SODIUM CHLORIDE 150ML 150 ML IV PRN (22:30)
[2018-12-28] MEDS ORDERED: ACETAMINOPHEN 325 MG TABLET PO PRN (22:30)
[2018-12-28 22:34] LABS: BGAS PH 7.37 (7.35-7.45)
[2018-12-29] VITALS (14 sets, daily range): BP systolic 112–146; BP diastolic 67–97
--- NOTE | 2018-12-29 00:06 | RAD ---
Indication: Tachycardia, elevated d-dimer. TECHNIQUE: Medicine VQ scan with 10.5 mCi of xenon-133 for ventilation scan and 5.5 mCi of technetium 99m MAA for perfusion scan. COMPARISON: Chest x-ray from same day FINDINGS: Appropriate wash-in and washout of the xenon-133 seen on ventilation scan. Homogeneous distribution is seen of the perfusion agent without ventilation/perfusion mismatch. IMPRESSION: Low probability VQ scan. Electronically signed by: Rashaad Godfrey DO (12/29/2018 12:03 AM) [facility]
[2018-12-29] MEDS: IV NORMAL SALINE 1,000ML 1,000 ML IV SCH ×2 (00:30→08:00)
[2018-12-29 04:29] LABS: BASO # 0.1 x10^3/uL (0.0-0.2); BASO % 1 % (0-3); EOS # 0.4 x10^3/uL (0.0-0.7); EOS % 4 % (0-3); HEMATOCRIT 39.8 % (36.0-47.0); HEMOGLOBIN 12.9 g/dL (12.0-15.5); LYMPH # 2.9 x10^3/uL (1.0-4.8); LYMPH % 25 % (24-48); MEAN CORPUSCULAR HEMOGLOBIN 29 pg (25-35); MEAN CORPUSCULAR HGB CONC 32 g/dL (31-37); MEAN CORPUSCULAR VOLUME 90 fL (79-100); MONO # 0.5 x10^3/uL (0.0-1.1); MONO % 4 % (0-9); NEUT # 7.9 x10^3uL (1.8-7.7); NEUT % 67 % (31-73); PLATELET COUNT 315 x10^3/uL (140-400); RED BLOOD COUNT 4.41 x10^6/uL (3.50-5.40); RED CELL DISTRIBUTION WIDTH 15.1 % (11.5-14.5); WHITE BLOOD COUNT 11.9 x10^3/uL (4.0-11.0)
[2018-12-29 04:40] LABS: CALCIUM 8.4 mg/dL (8.5-10.1); CREATININE 0.9 mg/dL (0.6-1.0); GFR 67.1; POTASSIUM 4.3 mmol/L (3.5-5.1)
[2018-12-29 04:57] LABS: % BANDS 4 % (0-9); % BASOS 1 % (0-3); % EOS 4 % (0-5); % LYMPHS 26 % (24-48); % MONOS 1 % (0-10); % SEGS 64 % (35-66); PLT ESTIMATE ADEQUATE (ADEQUATE)
[2018-12-29] MEDS ORDERED: NON FORMULARY ITEM (Insulin Aspart (Novolog Flexpen) 0 UNIT) SQ SCH (07:30)
[2018-12-29] MEDS ORDERED: DEXTROSE 50% 25 GM / 50ML DISP.SYRIN. IV PRN (07:45)
[2018-12-29] MEDS ORDERED: oxyCODONE/APAP 5/325 1 TAB TABLET PO PRN (08:00)
[2018-12-29] MEDS ORDERED: LINACLOTIDE 145 MCG CAPSULE. PO SCH (08:00)
[2018-12-29] MEDS ORDERED: ALBUTEROL SULFATE 2.5 MG/3 ML NEBU. IH PRN (08:00)
[2018-12-29] MEDS ORDERED: ONDANSETRON ODT 4 MG TAB.RAPDIS PO PRN (08:00)
[2018-12-29] MEDS ORDERED: ALPRAZolam 0.5 MG TABLET PO PRN (08:00)
[2018-12-29] MEDS ORDERED: traMADol 50 MG TABLET PO PRN (08:00)
[2018-12-29] MEDS ORDERED: BUDESONIDE 0.5 MG/2 ML NEBU NEB SCH (08:30)
[2018-12-29] MEDS ORDERED: ALBUTEROL SULFATE 2.5 MG/3 ML NEBU. NEB SCH (08:30)
[2018-12-29] MEDS ORDERED: FLUTICASONE 50MCG/NASAL SPRAY 16GM BOTTLE. NS SCH (09:00)
[2018-12-29] MEDS ORDERED: FLUTICASONE PROPION IH SCH (09:00)
[2018-12-29] MEDS ORDERED: PREGABALIN 75 MG CAPSULE PO SCH (09:00)
[2018-12-29] MEDS ORDERED: SALMETEROL IH SCH (09:00)
[2018-12-29] MEDS ORDERED: ATORVASTATIN CALCIUM 10 MG TABLET. PO SCH (09:00)
[2018-12-29] MEDS ORDERED: DULoxetine HCL 60 MG CAPSULE.DR PO SCH (09:00)
[2018-12-29] MEDS ORDERED: RIVAROXABAN 10 MG TABLET. PO SCH (09:00)
[2018-12-29] MEDS ORDERED: LIDOCAINE (700MG/PATCH) PATCH. TP SCH (09:00)
[2018-12-29] MEDS: oxyCODONE/APAP 5/325 1 TAB TABLET PO PRN ×2 (09:03→12:23)
[2018-12-29] MEDS: OXYBUTYNIN CHLORIDE 5 MG TABLET PO SCH ×2 (09:03→14:49)
[2018-12-29] MEDS: PANTOPRAZOLE 40 MG TABLET. PO SCH ×2 (09:13→16:30)
[2018-12-29] MEDS: INSULIN LISPRO 300 UNITS/3 ML VIAL. SQ SCH ×3 (09:18→17:21)
[2018-12-29] MEDS: SUCRALFATE 1 GM/10 ML ORAL.SUSP. PO SCH ×2 (12:12→16:45)
--- NOTE | 2018-12-29 13:37 | SSS ---
ADMIT DATE: 12/28/2018 HISTORY OF PRESENT ILLNESS: The patient is a 48-year-old female patient, who came to the Emergency Room, complaining of right upper quadrant abdominal pain, has been waxing and waning for the last several days associated with pain radiating down to her right lower extremity and inability to walk and inability to lift her right foot. The pain is worse with movement as well as with exertion. The patient reports being more tired than usual. There is no swelling in her left leg or feet or ankle. No nausea, no vomiting, no diaphoresis. Her gallbladder was removed as well as her appendix. She was extensively investigated in the Emergency Room and has had lab work, which showed a white cell count was slightly elevated 13,100, hemoglobin 14, hematocrit 44, MCV 91 and platelet count 388,000. Her serum sodium 141, potassium 4.3, chloride 103, bicarbonate was 28, anion gap of 10, BUN 11, creatinine 1.3, estimated GFR was 44 mL per minute. Her glucose was high at 525. Her calcium was 8.8, magnesium was 1.6. Total bilirubin, AST, ALT, alkaline phosphatase are elevated. Her total protein was 7.8, albumin 3.5 and lipase was 86. Her pH was 7.37, her pCO2 of 43, pO2 of 73, bicarbonate was 25 and oxygen saturation was 94% on FiO2 of 21%. Urinalysis was essentially unremarkable. Toxic screen was essentially negative. She has had slightly elevated D-dimer at 0.58 and therefore, she had had a chest x-ray which showed that the cardiomediastinal silhouette and pulmonary vessels are within normal limits. The lungs and pleural spaces are clear. She had had a pulmonary ventilation perfusion, which showed low probability for V/Q scan and her CT scan of the abdomen and pelvis with oral contrast only showed that evaluation of solid organs is limited without IV contrast, decreasing sensitivity for detection of pathology. There is a 3 mm nodule in the right lung, only seen on the first image stable 3 mm nodule along with the left major fissure also stable and lung bases otherwise are clear. Cardiac size is normal. She had cholecystectomy. There is fatty infiltration of the liver and hepatomegaly. Spleen size is normal. The pancreas, adrenal glands and abdominal aorta caliber are normal. A 3-cm left parapelvic cyst is stable. There is no hydronephrosis. There are no renal calculi and ureters are normal. Stomach is unremarkable. No dilated small bowel. Distal colon was decompressed, limiting evaluation. No colon wall thickening is appreciated. Appendectomy. No abdominal adenopathy or free fluid. Retroaortic left renal vein. Urinary bladder is normal. She has hysterectomy and pelvic free fluid. Vacuum disk phenomenon at L5-S1. No acute bony abnormality. The patient was admitted for further evaluation and treatment. Given that, her CT scan was unrevealing and her symptoms were related to some form of right lumbar radiculopathy. [facility] plan to transfer [facility] to do an MRI of her lumbar spine and to consult the neurosurgical team. PAST MEDICAL HISTORY: Significant for type 2 diabetes mellitus, hypertension, hyperlipidemia, morbid obesity, obstructive sleep apnea, history of bronchial asthma/COPD. PAST SURGICAL HISTORY: Significant for multiple ovarian cysts removal and 3 C-sections. She has total abdominal hysterectomy, bilateral salpingo-oophorectomy, appendectomy, cholecystectomy and back surgery. ALLERGIES: She is allergic to AZITHROMYCIN, CODEINE and MORPHINE. FAMILY HISTORY: She has 2 brothers and 3 sisters and 1 brother is older and rest are younger, all have hypertension and diabetes. Her father at the age of 60 due to massive myocardial infarction. Mother is still alive in her 70s and has diabetes and ovarian, liver and thyroid cancer. SOCIAL HISTORY: She is . She has 1 daughter and 2 sons. She quit smoking about 8 months ago. She does not drink alcohol or use any recreational drugs. She is [id number] mom. MEDICATIONS: She is currently on following medications: She is on albuterol sulfate 2 puffs every 4-6 hours, rivaroxaban for Xarelto 15 mg p.o. daily, pravastatin sodium 20 mg at bedtime, metoprolol tartrate 100 mg at bedtime, ibuprofen 800 mg 3 times a day, oxycodone/APAP 5/325 two tablets every 6 hours, oxycodone 1 tablet p.o. q. 6 hours, tramadol 50 mg every 6 hours, pregabalin 150 mg twice a day, duloxetine 60 mg twice a day, nortriptyline for Pamelor 50 mg at bedtime, alprazolam 0.5 mg 3 times a day, Wixela 500/50 one inhalation twice a day, Flonase 2 sprays to each nostril once a day, ondansetron 8 mg every 8 hours, sucralfate 1 gram 4 times a day, Protonix 40 mg twice a day, Linzess 145 mcg once a day. She is on NovoLog FlexPen 10-45 units subcutaneously 4 times a day before meals. She is on Lidoderm patch 1 patch applied topically on for 12 hours and off for 12 hours, Toviaz 8 mg once a day. REVIEW OF SYSTEMS: As per history of present illness: PHYSICAL EXAMINATION: GENERAL: When I saw her this morning, she was resting slightly propped up in bed, in no apparent distress, pale. No jaundice, cyanosis or thyromegaly. No jugular venous distention. No limb edema. VITAL SIGNS: Her heart rate was 101, blood pressure was 146/97, temperature was 97.8, respiratory rate was 16 and oxygen saturation was 96% on room air. HEAD, EYES, EARS, NOSE AND THROAT: Showed normocephalic, atraumatic. NECK: Supple. HEART: Showed normal first and second heart sounds. No gallop or murmur. CHEST: Clear to auscultation. No crepitation or rhonchi. ABDOMEN: Distended, soft, nontender. No guarding or rigidity. No organomegaly. All hernial orifices are intact. Bowel sounds normal. NEUROLOGIC: She was awake, alert, responding appropriately. All cranial nerves intact. EXTREMITIES: She moves extremities without difficulty. She ambulates with a walker. She definitely has right-sided footdrop. LABORATORY WORK: Her lab work this morning showed a white cell count 11,900, hemoglobin 12.9, hematocrit 39, MCV 90 and platelet count of 315,000. Her chemistry showed a serum sodium 141, potassium 4.3, chloride 103, bicarbonate 29, anion gap of 9, BUN 11, creatinine 0.9, estimated GFR was 67 mL per minute. Her glucose was 121, calcium was 8.4. She was transferred [facility] to continue on following medications: Albuterol sulfate 2 puffs every 4-6 hours, Xarelto 15 mg p.o. daily, pravastatin sodium 20 mg at bedtime, metoprolol tartrate 100 mg at bedtime, ibuprofen 800 mg 3 times a day, oxycodone/APAP 5/325 two tablets every 6 hours, tramadol 50 mg every 6 hours, pregabalin 150 mg twice a day, duloxetine 60 mg twice a day, nortriptyline 50 mg at bedtime, alprazolam 0.5 mg 3 times a day and Wixela 500/50 one inhalation twice a day, Flonase 2 sprays to each nostril once a day, ondansetron 8 mg p.o. every 8 hours, sucralfate 1 gram 4 times a day before meals and bedtime. She is on NovoLog FlexPen 10-45 units subcutaneously and Lidoderm patch 1 patch applied topically on for 12 hours and off for 12 hours, Toviaz 1 tablet p.o. daily. FINAL DISCHARGE DIAGNOSES: Right-sided lumbar radiculopathy with right sided footdrop. The patient has degenerative disk disease, status post back surgery at L5-S1 in 2017. Other medical problems include type 2 diabetes mellitus, hypertension, hyperlipidemia, morbid obesity, obstructive sleep apnea, bronchial asthma/chronic obstructive pulmonary disease. JD GUNDERSON MD DR: INGRIS/felipe JOB#: [id number] / [id number]
[2018-12-29] MEDS ORDERED: METOPROLOL TART IMMED RELEASE 50 MG TABLET PO SCH (14:00)
--- NOTE | 2018-12-29 14:38 | EKG ---
[address] [address] Test Date: 2018-12-28 Test Time: 19:06:09 Pat Name: OWEN HERNANDEZ Department: Room: Gender: F [employer]: CEE : 1970 Requested By: AMEENA DOMINGUEZ Order Number: [id number] Reading MD: Measurements Intervals [place] Rate: 126 P: -90 WA: 100 QRS: 107 QRSD: 92 T: 69 QT: 322 QTc: 467 Interpretive Statements SUPRAVENTRICULAR RHYTHM RIGHTWARD AXIS QRS(T) CONTOUR ABNORMALITY CONSISTENT WITH INFERIOR INFARCT PROBABLY OLD ABNORMAL ECG RI6.01 No previous ECG available for comparison
[2018-12-29] MEDS ORDERED: NORTRIPTYLINE 25 MG CAPSULE PO SCH (21:00)
[2018-12-29] MEDS ORDERED: NON FORMULARY ITEM (Metoprolol Tartrate 1 TAB) PO SCH (21:00)
== END 2018-12-29 19:05 | disposition short-term general hospital (02) ==
LOC: ER 18:52 → INTOOBSV 22:06 → ICU 22:06
PROVIDERS: ADMIT Internal Medicine; ATTEND Internal Medicine
DX: M54.16 Radiculopathy, lumbar region (principal); N17.9 Acute kidney failure, unspecified; R00.0 Tachycardia, unspecified; E11.9 Type 2 diabetes mellitus without complications; I10 Essential (primary) hypertension; E78.5 Hyperlipidemia, unspecified; E66.01 Morbid (severe) obesity due to excess calories; G47.33 Obstructive sleep apnea (adult) (pediatric); J45.909 Unspecified asthma, uncomplicated; Z98.891 History of uterine scar from previous surgery; Z90.710 Acquired absence of both cervix and uterus; Z90.49 Acquired absence of other specified parts of digestive tract
CPT/HCPCS: 36415; 71045; 74176; 78582; 80048; 80053; 80307; 81001; 82553; 82803; 82947; 83690; 83735; 83880; 84443; 84484; 85007; 85025; 85379; 85610; 85730; 93005; 94640; 96372; 96374; 96375; 96376; 99284; A9540; A9558; G0378; J1815; J3010; J7626; Q9966; 96361; 96365; G0379; 99285-25; J7030

== ENCOUNTER 2019-01-08 16:28 | Emergency (ER) | payer OTHER ==
[~2019-01-08] VITALS: Ht 165.1 cm; Wt 119.7 kg
[2019-01-08] MEDS ORDERED: IV NORMAL SALINE 500ML 500 ML IV ONE (16:45)
--- NOTE | 2019-01-08 16:45 | PHYS DOC ---
Past History Past Medical History: Anxiety, CAD, Diabetes, High Cholesterol, Hypertension, Kidney Stones, Ovarian Cyst, Pneumonia, Other Additional Past Medical Histor: pulmonary embolism, tachycardia, NERVE DAMAGE, drop foot on R (AMEENA DOMINGUEZ DO) Past Surgical History: Appendectomy, Cholecystectomy, , Hysterectomy, Other Additional Past Surgical Histo: OVARIAN CYSTS, BACK SX (AMEENA DOMINGUEZ DO) Smoking: Quit Less Than 1 Year Alcohol Use: None Drug Use: None (AMEENA DOMINGUEZ DO) Adult General Chief Complaint Chief Complaint: ALTERED MENTAL STATUS HPI HPI Patient is a 48-year-old female presents complaining of "not feeling right" that began this morning. Patient is known to be diabetic and reports that her blood sugars have been running good for her. She had her A1c test drawn yesterday by her primary care physician. She denies any chest pain or palpitations. She is unable to put a finger on how she feels off. There is no dizziness. No nausea or vomiting. No fever. No frequent urination.[] (AMEENA DOMINGUEZ DO) Review of Systems Review of Systems Constitutional: Denies fever or chills [] Eyes: Denies change in visual acuity, redness, or eye pain [] HENT: Denies nasal congestion or sore throat [] Respiratory: Denies cough or shortness of breath [] Cardiovascular: No chest pain or palpitations[] GI: Denies abdominal pain, nausea, vomiting, bloody stools or diarrhea [] : Denies dysuria or hematuria [] Musculoskeletal: Denies back pain or joint pain [] Integument: Denies rash or skin lesions [] Neurologic: Denies headache, focal weakness or sensory changes, see history of present illness [] Endocrine: Denies polyuria or polydipsia [] All other systems were reviewed and found to be within normal limits, except as documented in this note. (AMEENA DOMINGUZE DO) Allergies Allergies Allergies Coded Allergies Type Severity Reaction Last Updated Verified azithromycin Allergy Intermediate HIVES 11/29/18 Yes codeine Allergy Intermediate 11/29/18 Yes morphine Allergy Intermediate Palpitations 03/18/15 Yes (AMEENA DOMINGUEZ DO) Physical Exam Physical Exam Constitutional: Well developed, well nourished, no acute distress, non-toxic appearance. [] HENT: Normocephalic, atraumatic, bilateral external ears normal, oropharynx dry, no oral exudates, nose normal. [] Eyes: PERRLA, EOMI, conjunctiva normal, no discharge. [] Neck: Normal range of motion, no tenderness, supple, no stridor. [] Cardiovascular:Heart rate regular rhythm, no murmur [] Lungs & Thorax: Bilateral breath sounds clear to auscultation [] Abdomen: Bowel sounds normal, soft, no tenderness, no masses, no pulsatile masses. [] Skin: Warm, dry, no erythema, no rash. [] Back: No tenderness, no CVA tenderness. [] Extremities: No tenderness, no cyanosis, no clubbing, ROM intact, no edema. [] Neurologic: Alert and oriented X 3, normal motor function, normal sensory function, no focal deficits noted. [] Psychologic: Affect normal, judgement normal, mood normal. [] (AMEENA DOMINGUEZ DO) EKG EKG EKG shows a sinus rhythm at 94 bpm, normal axis, QTC 466 ms, no ST elevation. Interpreted by me at 1656[] (AMEENA DOMINGUEZ DO) Radiology/Procedures Radiology/Procedures PROCEDURE: PORTABLE CHEST 1V PORTABLE CHEST 1V History: Altered mental status Comparison: December 28, 2018 Findings: Single view of the chest is submitted. Exam is limited due to beam attenuation by soft tissues. Cardiac silhouette is similar. Appearance of some increased hazy opacity left lung base is probably accentuated by beam attenuation by soft tissues, otherwise no significant infiltrate identified. No pneumothorax is identified. Impression: 1. Appearance of some hazy opacity left lung base may be accentuated by beam attenuation by soft tissues, otherwise no significant infiltrate identified by radiograph. PROCEDURE: CT HEAD WO CONTRAST CT head without contrast PQRS statement: CT scans at this facility use dose reduction including either automated exposure control, iterative reconstructions, and /or weight based radiation dosing via mA and kV modification when appropriate to reduce radiation dose to as low as reasonably achievable. HISTORY: Altered mental status. FINDINGS: At the left frontal and parietal lobes at the vertex is an ill-defined subcortical and cortical hypodense masslike lesion approximate diameter of 4 cm with mild subfalcine herniation of the mass with [id number]-[id number] midline shift focally of the mass 7 mm, and surrounding vasogenic edema of the deep white matter. No intracranial hemorrhage. No hydrocephalus. No transtentorial herniation. No infarction. Orbits, mastoids and bones are unremarkable. IMPRESSION: Ill-defined 4 cm hypodense mass lesion at the left frontal and parietal lobes at the vertex with associated mass effect and surrounding edema. No hemorrhage. This raises concern for malignancy including glioma or a metastasis. Brain abscess would be a secondary consideration. [] (AMEENA DOMINGUEZ DO) Radiology/Procedures [address] [address] IMAGING REPORT Signed PATIENT: OWEN HERNANDEZ: [id number] : 1970 LOCATION: ER AGE: 48 SEX: F EXAM STATUS: REG ER ORD. PHYSICIAN: AMEENA DOMINGUEZ DO REASON: altered mental status PROCEDURE: PORTABLE CHEST 1V PORTABLE CHEST 1V History: Altered mental status Comparison: December 28, 2018 Findings: Single view of the chest is submitted. Exam is limited due to beam attenuation by soft tissues. Cardiac silhouette is similar. Appearance of some increased hazy opacity left lung base is probably accentuated by beam attenuation by soft tissues, otherwise no significant infiltrate identified. No pneumothorax is identified. Impression: 1. Appearance of some hazy opacity left lung base may be accentuated by beam attenuation by soft tissues, otherwise no significant infiltrate identified by radiograph. Electronically signed by: Janel Rosario MD (01/08/2019 5:35 PM) [facility] DICTATED AND SIGNED BY: JANEL ROSARIO MD DATE: 01/08/19 1735 CC: AMEENA DOMINGUEZ DO; NIYAH SALEH APRN ~[address] [address] IMAGING REPORT Signed PATIENT: OWEN HERNANDEZ: [id number] : 1970 LOCATION: ER AGE: 48 SEX: F EXAM STATUS: REG ER ORD. PHYSICIAN: AMEENA DOMINGUEZ DO REASON: altered mental status PROCEDURE: CT HEAD WO CONTRAST CT head without contrast PQRS statement: CT scans at this facility use dose reduction including either automated exposure control, iterative reconstructions, and /or weight based radiation dosing via mA and kV modification when appropriate to reduce radiation dose to as low as reasonably achievable. HISTORY: Altered mental status. FINDINGS: At the left frontal and parietal lobes at the vertex is an ill-defined subcortical and cortical hypodense masslike lesion approximate diameter of 4 cm with mild subfalcine herniation of the mass with ikys-[id number]-ykohd midline shift focally of the mass 7 mm, and surrounding vasogenic edema of the deep white matter. No intracranial hemorrhage. No hydrocephalus. No transtentorial herniation. No infarction. Orbits, mastoids and bones are unremarkable. IMPRESSION: Ill-defined 4 cm hypodense mass lesion at the left frontal and parietal lobes at the vertex with associated mass effect and surrounding edema. No hemorrhage. This raises concern for malignancy including glioma or a metastasis. Brain abscess would be a secondary consideration. FOR INTERNAL CODING PURPOSES Critical result: Findings discussed with Dr. AMEENA DOMINGUEZ at 01/08/2019 5:31 PM. RESULT CODE: (C) Electronically signed by: Jesusita Monteiro MD (01/08/2019 5:32 PM) [facility] DICTATED AND SIGNED BY: JESUSITA MONTEIRO MD DATE: 01/08/191731 CC: AMEENA DOMINGUEZ DO; NIYAH SALEH APRN ~ (SIMI WATTS MD) Course & Med Decision Making Course & Med Decision Making Pertinent Labs and Imaging studies reviewed. (See chart for details) ED course: Patient arrived, was placed in bed, and tolerated exam well. A bedside fingerstick blood sugar was obtained that showed it to be in the 180s, her oxygen level was noted to be normal. And she was making sense and maintaining her airway so Narcan was not administered. IV access was establ ished, she was transported to and from radiology with any complications. After the return of the imaging findings, an initial consultation was made with neurosurgery at [facility] who felt that this was too complicated for them. Subsequently contact was made with [facility] and awaiting a call back from them as care is being transferred to the [facility] physician at 1815. Medical decision making: Patient with a left-sided brain tumor, awaiting transfer.[] (AMEENA DOMINGUEZ DO) Course & Med Decision Making Pt. mental status gradually improved. Discussed this with her Ex- . Advised they still live together with there son. He and his son felt she probably took an over dose of her pain meds for her chronic back pain and sciatica, or her sugar's got to high from all the Thanksgiving eating. He advised recently discharge from [facility] after 1 week admission. Advised she has hx of following with Dr. Au for her Rt leg neuropathy and another doctor for her chronic high D-dimers.. Takes Xarelto 10 mg day. Pt. last admitted under Dr. Engle at [facility]. Pt. follows with [facility] for maintenance. Call back from Transfer- Advised Dr. Mcgrath would not accept pt in transfer, after review of films, advised nothing would be done until follow up in out pt. clinic. Advised to start Decadron 4 mg every 6 hrs. until follow up in clinic. Call lst thing in morning on Saturday. Advised can obtain MRI with and without contrast of brain, and cloud images to or bring with her on follow up. Advised if concern for infection would start antibiotics and determine a possible source for infection. CT findings are consistent with Neoplastic Mass. I have concerns for discharge at this time because of pt. past hx of non-c ompliance. Will admit for start of antibiotics and steroids. Will transfer to [facility] for MRI with and without contrast. Coverage with Rocephin and Vanco- because of recent admission. Pt. and Ex. agreeable to plan. Discussed with Dr. Salinas- advised he would accept pt. in transfer for MRI of brain and coverage for infection. Until transfer or discharge Saturday for follow up in Dr. Mcgrath clinic. Impression: 1. Mental Status Change- Multifactorial -Over use of narcotic and benzo -Elevated WBC- ( possible basilar pneumonia) -Brain Mass- ( Neoplastic) 2. DM = 182 3. Leukocytosis 20.8 4. Chronic Back Pain and Sciatica Rt Leg 5. Hx. of Non-compliance (SIMI WATTS MD) Dragon Disclaimer Dragon Disclaimer This electronic medical record was generated, in whole or in part, using a voice recognition dictation system. (AMEENA DOMINGUEZ DO) Departure Departure: Impression: Primary Impression: Brain tumor Disposition: TRANSFER OTHER Condition: IMPROVED Referrals: NIYAH SALEH APRN (PCP) Mary Disclaimer This chart was dictated in whole or in part using Voice Recognition software in a busy, high-work load, and often noisy Emergency Department environment. It m ay contain unintended and wholly unrecognized errors or omissions. (SIMI WATTS MD) AMEENA DOMINGUEZ DO Jan 08, 2019 16:45 SIMI WATTS MD Jan 08, 2019 18:51
--- NOTE | 2019-01-08 16:54 | EKG ---
[address] [address] Test Date: 2019-01-08 Test Time: 16:52:22 Pat Name: OWEN HERNANDEZ Department: Room: Gender: F Mgmt Analyst: ADOLPH : 1970 Requested By: AMEENA DOMINGUEZ Order Number: [id number] Reading MD: Measurements Intervals [place] Rate: 94 P: 43 AK: 146 QRS: 84 QRSD: 96 T: 86 QT: 368 QTc: 466 Interpretive Statements SINUS RHYTHM QRS(T) CONTOUR ABNORMALITY CONSIDER ANTEROLATERAL INFARCT CONSISTENT WITH INFERIOR INFARCT PROBABLY OLD ABNORMAL ECG RI6.01 Compared to ECG 11/28/2018 21:16:29 Sinus tachycardia no longer present Myocardial infarct finding still present
[2019-01-08 17:11] LABS: BASO # 0.1 x10^3/uL (0.0-0.2); BASO % 0 % (0-3); EOS # 0.4 x10^3/uL (0.0-0.7); EOS % 2 % (0-3); HEMATOCRIT 42.3 % (36.0-47.0); HEMOGLOBIN 13.2 g/dL (12.0-15.5); LYMPH # 3.1 x10^3/uL (1.0-4.8); LYMPH % 15 % (24-48); MEAN CORPUSCULAR HEMOGLOBIN 29 pg (25-35); MEAN CORPUSCULAR HGB CONC 31 g/dL (31-37); MEAN CORPUSCULAR VOLUME 92 fL (79-100); MONO # 0.6 x10^3/uL (0.0-1.1); MONO % 3 % (0-9); NEUT # 16.6 x10^3uL (1.8-7.7); NEUT % 80 % (31-73); PLATELET COUNT 411 x10^3/uL (140-400); RED CELL DISTRIBUTION WIDTH 15.7 % (11.5-14.5); WHITE BLOOD COUNT 20.8 x10^3/uL (4.0-11.0)
[2019-01-08 17:30] LABS: ALBUMIN 4.1 g/dL (3.4-5.0); ALBUMIN/GLOBULIN RATIO 1.1 (1.0-1.7); CALCIUM 8.7 mg/dL (8.5-10.1); CREATININE 1.2 mg/dL (0.6-1.0); GFR 48.2; POTASSIUM 4.4 mmol/L (3.5-5.1); TOTAL BILIRUBIN 0.6 mg/dL (0.2-1.0); TOTAL PROTEIN 7.8 g/dL (6.4-8.2)
[2019-01-08 17:34] LABS: BARBITURATES NEG (NEG); BENZODIAZEPINES POS (NEG); CANNABINOIDS NEG (NEG); COCAINE NEG (NEG); METHADONE NEG (NEG); OPIATES POS (NEG); PHENCYCLIDINE NEG (NEG)
--- NOTE | 2019-01-08 17:34 | RAD ---
CT head without contrast PQRS statement: CT scans at this facility use dose reduction including either automated exposure control, iterative reconstructions, and /or weight based radiation dosing via mA and kV modification when appropriate to reduce radiation dose to as low as reasonably achievable. HISTORY: Altered mental status. FINDINGS: At the left frontal and parietal lobes at the vertex is an ill-defined subcortical and cortical hypodense masslike lesion approximate diameter of 4 cm with mild subfalcine herniation of the mass with gclp-vb-[id number] midline shift focally of the mass 7 mm, and surrounding vasogenic edema of the deep white matter. No intracranial hemorrhage. No hydrocephalus. No transtentorial herniation. No infarction. Orbits, mastoids and bones are unremarkable. IMPRESSION: Ill-defined 4 cm hypodense mass lesion at the left frontal and parietal lobes at the vertex with associated mass effect and surrounding edema. No hemorrhage. This raises concern for malignancy including glioma or a metastasis. Brain abscess would be a secondary consideration. FOR INTERNAL CODING PURPOSES Critical result: Findings discussed with Dr. AMEENA DOMINGUEZ at 01/08/2019 5:31 PM. RESULT CODE: (C) Electronically signed by: Duane Monteiro MD (01/08/2019 5:32 PM) [facility]
[2019-01-08 17:35] LABS: AMPHETAMINE/METHAMPHETAMINE NEG (NEG)
--- NOTE | 2019-01-08 17:38 | RAD ---
PORTABLE CHEST 1V History: Altered mental status Comparison: December 28, 2018 Findings: Single view of the chest is submitted. Exam is limited due to beam attenuation by soft tissues. Cardiac silhouette is similar. Appearance of some increased hazy opacity left lung base is probably accentuated by beam attenuation by soft tissues, otherwise no significant infiltrate identified. No pneumothorax is identified. Impression: 1. Appearance of some hazy opacity left lung base may be accentuated by beam attenuation by soft tissues, otherwise no significant infiltrate identified by radiograph. Electronically signed by: Kj Ohara MD (01/08/2019 5:35 PM) [facility]
[2019-01-08 18:03] LABS: BACTERIA,URINE 0 /HPF (0-FEW); BILIRUBIN,URINE NEG (NEG); CLARITY,URINE CLEAR; COLOR,URINE YELLOW; GLUCOSE,URINE NEG (NEG); NITRITE,URINE NEG (NEG); RBC,URINE 0 /HPF (0-2); SQUAMOUS EPITHELIAL CELL,UR OCC /LPF; UROBILINOGEN,URINE 0.2 mg/dL (0.2 mg/dL)
[2019-01-08 18:04] LABS: HYALINE CASTS, URINE OCC /HPF
[2019-01-08] MEDS ORDERED: IV NORMAL SALINE 100ML 100 ML ONE (18:43)
[2019-01-08] MEDS ORDERED: DEXAMETHASONE SOD PHOS 10 MG/ML VIAL IV ONE (18:45)
[2019-01-08] MEDS ORDERED: VANCOMYCIN PER PHARMACY MC PRN (19:45)
[2019-01-08] MEDS ORDERED: VANCOMYCIN 1 GM in IV NORMAL SALINE 250ML 250 ML IV ONE (19:45)
[2019-01-08] MEDS ORDERED: VANCOMYCIN 2 GM in IV NORMAL SALINE 500ML 500 ML IV ONE (20:00)
[2019-01-08] MEDS ORDERED: IV NORMAL SALINE 500ML 500 ML ONE (20:31)
[2019-01-08] MEDS ORDERED: VANCOMYCIN 1 GM VIAL. ONE ×2 (20:32→20:33)
[2019-01-08 20:56] VITALS: BP 129/99
[2019-01-08 21:13] LABS: % BASOS 2 % (0-3); % EOS 3 % (0-5); % LYMPHS 17 % (24-48); % METAS 1 % (0-0); % MONOS 7 % (0-10); % SEGS 70 % (35-66)
--- NOTE | 2019-01-08 21:13 | NUR ---
Pharmacy Vancomycin Dosing Note S:Consulted to monitor and dose vancomycin started . O:OWEN HERNANDEZ is a 48 year old F with [employer], [employer] INFECTION . Height: 5 feet, 5 inches Weight: 119.103262 kg [place] Body Weight: 57.00 Adjusted Body Weight: 77.64 Dosing Weight: Actual Other Antibiotics: CTX 2G X1 LABS: Last BUN: 22 Last Creatinine: 1.2 Creatinine Clearance: 75 Last WBC: 20.8 Last Procalcitonin: Tmax (past 24 hours): Microbiology: I/O: Drug Levels: Last level: on at Last dose given 01/08/19 at 2030 Vancomycin Dosing: Loading Dose: 2000 mg x1 Dosing Weight: Actual Target Trough: 15-20 A: Based on: WEIGHT, CRCL~75 P: 1. INITIATE Vancomycin 1750 mg IV q12h AFTER 2000 MG LOADING DOSE 2. Follow up Trough level on 01/10/19 at 0900 3. Pharmacy will continue to monitor, follow and adjust therapy as needed. RADHA HOLLINGSWORTH, [facility], 01/08/19 2049
[2019-01-08 21:14] LABS: PLT ESTIMATE INCREASED (ADEQUATE); POLYCHROMASIA SLIGHT
[2019-01-08 21:15] LABS: ANISOCYTOSIS SLIGHT
[2019-01-08] MEDS ORDERED: oxyCODONE/APAP 5/325 1 TAB TABLET PO ONE (21:30)
[2019-01-09] MEDS ORDERED: VANCOMYCIN 1.75 GM in IV NORMAL SALINE 500ML 500 ML IV SCH (09:30)
== END 2019-01-08 23:04 | disposition short-term general hospital (02) ==
LOC: ER 16:28
DX: D49.6 Neoplasm of unspecified behavior of brain (principal); R41.82 Altered mental status, unspecified; D72.829 Elevated white blood cell count, unspecified; E11.9 Type 2 diabetes mellitus without complications; G89.29 Other chronic pain; M54.31 Sciatica, right side; F41.9 Anxiety disorder, unspecified; I25.10 Atherosclerotic heart disease of native coronary artery without angina pectoris; E78.00 Pure hypercholesterolemia, unspecified; I10 Essential (primary) hypertension; Z91.19 Patient's noncompliance with other medical treatment and regimen; Z87.442 Personal history of urinary calculi; Z86.711 Personal history of pulmonary embolism; Z90.89 Acquired absence of other organs; Z90.49 Acquired absence of other specified parts of digestive tract; Z90.710 Acquired absence of both cervix and uterus; Z98.890 Other specified postprocedural states; Z87.891 Personal history of nicotine dependence; Z88.1 Allergy status to other antibiotic agents; Z88.5 Allergy status to narcotic agent
CPT/HCPCS: 36415; 70450; 71045; 80053; 80307; 81001; 81025; 82947; 83880; 84484; 84702; 85007; 85025; 85379; 85610; 85730; 87040; 93005; 96365; 96366; 96367; 96375; 99285; G0480; J0696; J1100; J3370; J7040

== ENCOUNTER 2019-03-29 21:33 | Inpatient (IN) | payer OTHER ==
[~2019-03-29] VITALS: Ht 165.1 cm; Wt 118.8 kg
[~2019-03-29 21:33] MED LIST changes: -CETI10TA22 PO; +CETI10TA24 PO
--- NOTE | 2019-03-29 21:40 | PHYS DOC ---
Past History Past Medical History: Anxiety, CAD, Depression, Diabetes, High Cholesterol, Hypertension, Kidney Stones, Ovarian Cyst, Pneumonia, Other Additional Past Medical Histor: pulmonary embolism, tachycardia, NERVE DAMAGE, drop foot on R Past Surgical History: Appendectomy, Cholecystectomy, , Hysterectomy, Other Additional Past Surgical Histo: OVARIAN CYSTS, BACK SX Smoking: Quit Less Than 1 Year Alcohol Use: None Drug Use: None Adult General Chief Complaint Chief Complaint: "I was at .. rehab.. and then I was seen at [place].. th ey started me on Amoxicillin.. but I no better... I still really short of breath.. and weak... " HPI HPI Patient is a 48 year old female who presents with above hx and complaints dyspnea, wheezing, and generalize weakness. Patient has history of multiple medical issues primarily diabetes, morbid obesity,anxiety, depression, elevated cholesterol, hypertension, kidney stones, ovarian cysts, and deconditioning. Patient has had multiple surgeries cholecystectomy and C-sections appendectomy and hysterectomy. Review of Systems Review of Systems Constitutional:Subject complaints of fever or chills [] Eyes: Denies change in visual acuity, redness, or eye pain [] HENT: Complaints of nasal congestion and sore throat [] Respiratory: Complains cough, wheezing and shortness of breath [] Cardiovascular: No additional information not addressed in HPI [] GI: Denies abdominal pain, nausea, vomiting, bloody stools or diarrhea [] : Denies dysuria or hematuria [] Musculoskeletal: Denies back pain or joint pain [] Integument: Denies rash or skin lesions [] Neurologic: Denies headache, focal weakness or sensory changes [] Endocrine: Denies polyuria or polydipsia [] All other systems were reviewed and found to be within normal limits, except as documented in this note. Family History Family History Noncontributory Current Medications Current Medications See nursing for home meds Allergies Allergies Allergies Coded Allergies Type Severity Reaction Last Updated Verified azithromycin Allergy Intermediate HIVES 11/29/18 Yes codeine Allergy Intermediate 11/29/18 Yes morphine Allergy Intermediate Palpitations 03/18/15 Yes Physical Exam Physical Exam Constitutional: Moderate acute distress, non-toxic appearance. [] HENT: Normocephalic, atraumatic, bilateral external ears normal, oropharynx moist, no oral exudates, nose normal. [] Eyes: PERRLA, EOMI, conjunctiva normal, no discharge. [] Neck: Normal range of motion, no tenderness, supple, no stridor. [] More than 17 inches circumference Cardiovascular: Tachycardia Heart rate regular rhythm, no murmur []PMI to the left Lungs & Thorax: Bilateral breath sounds scattered wheezes and basilar crackles on auscultation [] Abdomen: Bowel sounds normal, soft, no tenderness, no masses, no pulsatile masses. [] Morbid obesity. Multiple old surgery scars Skin: Warm, dry, no erythema, no rash. [] Back: No tenderness, no CVA tenderness. [] Extremities: No tenderness, no cyanosis, no clubbing, ROM intact, ankle edema. [] Neurologic: Alert and oriented X 3, moves all extremities on request, has distal sensory, no focal deficits noted. [] Psychologic: Affect anxious, judgement normal, mood depressed EKG EKG My interpretation EKG shows a sinus tachycardia 114 bpm. Does have some nonspecific contour changes in the anterior septal region. No findings of acute STEMI of contralateral changes.[] Radiology/Procedures Radiology/Procedures [address] [address] IMAGING REPORT Signed PATIENT: OWEN HERNANDEZ LACCOUNT: [id number] : 1970 LOCATION: ER AGE: 48 SEX: F EXAM STATUS: REG ER ORD. PHYSICIAN: SIMI WATTS MD REASON: dyspnea PROCEDURE: PORTABLE CHEST 1V Exam: Chest one view INDICATION: Screening TECHNIQUE: Frontal view of the chest Comparisons: 01/08/2019 FINDINGS: The cardiomediastinal silhouette and pulmonary vessels are within normal limits. Patchy airspace disease within the right upper and midlung. No pleural effusion. IMPRESSION: Patchy airspace disease within the right upper and midlung, favored to be infectious process. Electronically signed by: Bethanie Cardoza MD (03/29/2019 11:47 PM) [id number] DICTATED AND SIGNED BY: BETHANIE CARDOZA MD DATE: 03/29/19 7473 CC: SIMI WATTS MD; NIYAH SALEH APRN ~ [][address] [id number] IMAGING REPORT Signed PATIENT: OWEN HERNANDEZ LACCOUNT: [id number] : 1970 LOCATION: ER AGE: 48 SEX: F EXAM STATUS: REG ER ORD. PHYSICIAN: SIMI WATTS MD REASON: dyspnea, elevated d-dimer, OMNI 350, 100ml PROCEDURE: CT ANGIOGRAPHY CHEST INDICATION: Shortness of breath COMPARISON: November 2018 TECHNIQUE: Axial CT images obtained through the chest. Intravenous contrast utilized. Angiogram 3D images processed per protocol. One or more of the following individualized dose reduction techniques were utilized for this examination: 1. Automated exposure control; 2. Adjustment of the mA and/or kV according to patient size; 3. Use of iterative reconstruction technique. FINDINGS: Multifocal opacities within the right greater than left lung with a portion groundglass and a portion more consolidative. No evidence of pneumothorax. Masslike opacity within the right lower and right upper lung. Prominent epidural fat. Liver is low density. Nonspecific but can be seen with fatty infiltration. Partially visualized liver spleen prominent in size. Small fat-containing anterior abdominal wall hernia to the right of midline. Subcutaneous edema is seen. There are some enlarged lymph nodes within the mediastinum. Debris within the bronchi on the right. Portion of a ascending thoracic aorta obscured by motion but no evidence of aneurysm or dissection flap in visualized portions. Dilatation of the main pulmonary artery measuring up to 40 mm. No embolus in the main, right main or left main pulmonary artery. Large amount of motion obscures more peripheral vessels. IMPRESSION: Multifocal opacities throughout the right greater than left lung which could be from multifocal pneumonia with other possible causes including aspiration. There is also groundglass component therefore a superimposed edema is not excluded. Would obtain a follow-up to ensure this resolves to exclude neoplastic causes. Enlarged lymph nodes within the mediastinum and hilum could be reactive in nature but follow-up will be needed to ensure this resolves to exclude neoplasm. No embolus in main pulmonary arteries but large amount of motion obscures more peripheral vessels Electronically signed by: Serafin Gonzalez MD (03/30/2019 12:28 AM) [id number] DICTATED AND SIGNED BY: SERAFIN GONZALEZ MD DATE: 03/30/19 0028 Course & Med Decision Making Course & Med Decision Making Pertinent Labs and Imaging studies reviewed. (See chart for details) Pt. admitted to Dr. Hollins, with cardiology consult. Heart score 4-5 Impression: 1. Dyspnea 2. CHF- diastolic dysfunction- BNP 707 3. Bronchitis 4. Anemia 9.9 hemoglobin 5. Elevated d-dimer- 2.09 on [place] 6. Hypo magnesium 1.7 7 Malnutrition albumin 3.0 8. Morbid obesity 9. Outpatient treatment failure 10. Diabetes 11. High risk for readmission 12. Atypical pulmonary infiltrates - Pneumonia vs Chronic vs neoplastic [] Dragon Disclaimer Dragon Disclaimer This electronic medical record was generated, in whole or in part, using a voice recognition dictation system. Departure Departure: Disposition: 01 HOME/RESIDENCE PRIOR TO ADM Condition: STABLE Referrals: NIYAH SALEH APRN (PCP) SIMI WATTS MD Mar 29, 2019 21:40
[2019-03-29] MEDS ORDERED: methylPREDNISolone SOD SUCC PF 125 MG/2 ML VIAL. IV ONE (22:00)
[2019-03-29] MEDS ORDERED: ASPIRIN 325 MG TABLET PO ONE (22:00)
[2019-03-29] MEDS ORDERED: IPRATRPIUM/ALBUTEROL 0.5/2.5MG 3 ML NEBU. NEB ONE (22:00)
[2019-03-29] MEDS ORDERED: IV RINGERS SOLUTION,LACTATED 1,000 ML IV SCH (22:00)
[2019-03-29 22:24] LABS: BASO % 0 % (0-3); EOS # 0.1 x10^3/uL (0.0-0.7); EOS % 1 % (0-3); HEMATOCRIT 30.5 % (36.0-47.0); HEMOGLOBIN 9.9 g/dL (12.0-15.5); LYMPH # 3.7 x10^3/uL (1.0-4.8); LYMPH % 35 % (24-48); MEAN CORPUSCULAR HEMOGLOBIN 31 pg (25-35); MEAN CORPUSCULAR HGB CONC 32 g/dL (31-37); MEAN CORPUSCULAR VOLUME 96 fL (79-100); MONO # 1.4 x10^3/uL (0.0-1.1); MONO % 13 % (0-9); NEUT # 5.5 x10^3uL (1.8-7.7); NEUT % 51 % (31-73); PLATELET COUNT 381 x10^3/uL (140-400); RED BLOOD COUNT 3.19 x10^6/uL (3.50-5.40); RED CELL DISTRIBUTION WIDTH 18.8 % (11.5-14.5); WHITE BLOOD COUNT 10.8 x10^3/uL (4.0-11.0)
--- NOTE | 2019-03-29 22:32 | EKG ---
[address] [address] Test Date: 2019-03-29 Test Time: 22:17:21 Pat Name: OWEN HERNANDEZ Department: Room: Gender: F Records Administrator: : 1970 Requested By: SIMI WATTS Order Number: [id number] Reading MD: Measurements Intervals [place] Rate: 114 P: 41 CT: 142 QRS: 39 QRSD: 92 T: 61 QT: 338 QTc: 469 Interpretive Statements SINUS TACHYCARDIA QRS(T) CONTOUR ABNORMALITY CONSIDER ANTEROSEPTAL MYOCARDIAL DAMAGE CONSISTENT WITH INFERIOR INFARCT PROBABLY OLD ABNORMAL ECG RI6.01 No previous ECG available for comparison
[2019-03-29 22:35] LABS: CALCIUM 8.1 mg/dL (8.5-10.1); CREATININE 0.7 mg/dL (0.6-1.0); GFR 89.7; POTASSIUM 3.5 mmol/L (3.5-5.1)
[2019-03-29 22:47] LABS: DIRECT BILIRUBIN 0.2 mg/dL (0.0-0.2); INFLUENZA A PATIENT NEGATIVE (NEGATIVE); INFLUENZA B PATIENT NEGATIVE (NEGATIVE); MAGNESIUM 1.7 mg/dL (1.8-2.4); TOTAL BILIRUBIN 0.4 mg/dL (0.2-1.0); TOTAL PROTEIN 6.5 g/dL (6.4-8.2)
[2019-03-29 22:58] LABS: BARBITURATES NEG (NEG); BENZODIAZEPINES NEG (NEG); CANNABINOIDS NEG (NEG); COCAINE NEG (NEG); METHADONE NEG (NEG); OPIATES POS (NEG); PHENCYCLIDINE NEG (NEG)
[2019-03-29 23:04] LABS: AMORPHOUS SEDIMENT,UR PRESENT /HPF; AMPHETAMINE/METHAMPHETAMINE NEG (NEG); BACTERIA,URINE 0 /HPF (0-FEW); BILIRUBIN,URINE NEG (NEG); CLARITY,URINE HAZY; COLOR,URINE YELLOW; GLUCOSE,URINE NEG (NEG); NITRITE,URINE NEG (NEG); SQUAMOUS EPITHELIAL CELL,UR OCC /LPF; UROBILINOGEN,URINE 0.2 mg/dL (0.2 mg/dL)
[2019-03-29] MEDS ORDERED: ONDANSETRON PF 4 MG/2 ML VIAL. IV PRN (23:45)
[2019-03-29] MEDS ORDERED: VANCOMYCIN 1 GM in IV NORMAL SALINE 250ML 250 ML IV ONE ×4 (23:45)
[2019-03-29] MEDS ORDERED: CONTRAST GIVEN MC PRN (23:45)
[2019-03-29] MEDS ORDERED: VANCOMYCIN PER PHARMACY MC PRN (23:45)
--- NOTE | 2019-03-29 23:50 | RAD ---
Exam: Chest one view INDICATION: Screening TECHNIQUE: Frontal view of the chest Comparisons: 01/08/2019 FINDINGS: The cardiomediastinal silhouette and pulmonary vessels are within normal limits. Patchy airspace disease within the right upper and midlung. No pleural effusion. IMPRESSION: Patchy airspace disease within the right upper and midlung, favored to be infectious process. Electronically signed by: Bethanie Vargas MD (03/29/2019 11:47 PM) [id number]
[2019-03-30] MEDS ORDERED: MAGNESIUM SULFATE 2GM 50 ML IV ONE
[2019-03-30] MEDS ORDERED: IOHEXOL 350 MG/ML 100 ML VIAL. IV ONE
[2019-03-30] MEDS ORDERED: VANCOMYCIN 2 GM in IV NORMAL SALINE 500ML 500 ML IV ONE (00:30)
--- NOTE | 2019-03-30 00:31 | RAD ---
INDICATION: Shortness of breath COMPARISON: November 2018 TECHNIQUE: Axial CT images obtained through the chest. Intravenous contrast utilized. Angiogram 3D images processed per protocol. One or more of the following individualized dose reduction techniques were utilized for this examination: 1. Automated exposure control; 2. Adjustment of the mA and/or kV according to patient size; 3. Use of iterative reconstruction technique. FINDINGS: Multifocal opacities within the right greater than left lung with a portion groundglass and a portion more consolidative. No evidence of pneumothorax. Masslike opacity within the right lower and right upper lung. Prominent epidural fat. Liver is low density. Nonspecific but can be seen with fatty infiltration. Partially visualized liver spleen prominent in size. Small fat-containing anterior abdominal wall hernia to the right of midline. Subcutaneous edema is seen. There are some enlarged lymph nodes within the mediastinum. Debris within the bronchi on the right. Portion of a ascending thoracic aorta obscured by motion but no evidence of aneurysm or dissection flap in visualized portions. Dilatation of the main pulmonary artery measuring up to 40 mm. No embolus in the main, right main or left main pulmonary artery. Large amount of motion obscures more peripheral vessels. IMPRESSION: Multifocal opacities throughout the right greater than left lung which could be from multifocal pneumonia with other possible causes including aspiration. There is also groundglass component therefore a superimposed edema is not excluded. Would obtain a follow-up to ensure this resolves to exclude neoplastic causes. Enlarged lymph nodes within the mediastinum and hilum could be reactive in nature but follow-up will be needed to ensure this resolves to exclude neoplasm. No embolus in main pulmonary arteries but large amount of motion obscures more peripheral vessels Electronically signed by: Randall Gonzalez MD (03/30/2019 12:28 AM) [id number]
[2019-03-30] MEDS: ACETAMINOPHEN 325 MG TABLET PO PRN ×2 (00:40→05:13)
[2019-03-30] MEDS ORDERED: cefTRIAXone SODIUM 1 GM VIAL ONE (00:48)
[2019-03-30] MEDS ORDERED: IV NORMAL SALINE 50ML 50 ML ONE (00:48)
[2019-03-30 01:37] VITALS: BP 106/73
[2019-03-30] MEDS ORDERED: APIX5TAB3 PO (04:41)
[2019-03-30] MEDS ORDERED: ACET500T68 PO (04:41)
[2019-03-30] MEDS ORDERED: DIPH25TA26 PO (04:41)
[2019-03-30] MEDS ORDERED: CYCL1DRO EACHEYE (04:41)
[2019-03-30] MEDS ORDERED: CLON0.5T4 PO (04:41)
[2019-03-30] MEDS: IPRATRPIUM/ALBUTEROL 0.5/2.5MG 3 ML NEBU. NEB SCH ×2 (04:42→11:10)
[2019-03-30] MEDS ORDERED: FERR325T14 PO (04:43)
[2019-03-30] MEDS ORDERED: INSU100V13 SQ (04:47)
[2019-03-30] MEDS ORDERED: METF1000 PO (04:47)
[2019-03-30] MEDS ORDERED: MAGN400T5 PO (04:47)
[2019-03-30] MEDS ORDERED: PROC10TA2 PO (05:03)
[2019-03-30] MEDS ORDERED: METO50TA4 PO ×2 (05:03)
[2019-03-30] MEDS ORDERED: OXYB10TA7 PO (05:03)
[2019-03-30] MEDS ORDERED: TOPI50TA8 PO (05:03)
[2019-03-30] MEDS ORDERED: POLY17PO5 PO (05:03)
[2019-03-30] MEDS ORDERED: DASA100T PO (05:03)
[2019-03-30] MEDS ORDERED: PREG150C PO (05:03)
[2019-03-30] MEDS ORDERED: NYST15PO9 TP (05:03)
[2019-03-30] MEDS ORDERED: CRESTOR20 MG PO (05:03)
[2019-03-30] MEDS: VANCOMYCIN PER PHARMACY MC PRN ×2 (05:09→13:10)
[2019-03-30 05:17] VITALS: BP 118/82
[2019-03-30 06:14] LABS: BASO % 0 % (0-3); EOS % 0 % (0-3); HEMATOCRIT 30.2 % (36.0-47.0); HEMOGLOBIN 9.6 g/dL (12.0-15.5); LYMPH # 1.2 x10^3/uL (1.0-4.8); LYMPH % 19 % (24-48); MEAN CORPUSCULAR HEMOGLOBIN 30 pg (25-35); MEAN CORPUSCULAR HGB CONC 32 g/dL (31-37); MEAN CORPUSCULAR VOLUME 95 fL (79-100); MONO # 0.2 x10^3/uL (0.0-1.1); MONO % 3 % (0-9); NEUT # 5.2 x10^3uL (1.8-7.7); NEUT % 78 % (31-73); PLATELET COUNT 350 x10^3/uL (140-400); RED BLOOD COUNT 3.16 x10^6/uL (3.50-5.40); RED CELL DISTRIBUTION WIDTH 18.3 % (11.5-14.5); WHITE BLOOD COUNT 6.6 x10^3/uL (4.0-11.0)
[2019-03-30 06:16] LABS: CALCIUM 8.2 mg/dL (8.5-10.1); CREATININE 0.5 mg/dL (0.6-1.0); GFR 132.2; POTASSIUM 3.4 mmol/L (3.5-5.1)
[2019-03-30 06:43] LABS: % BANDS 4 % (0-9); % BASOS 1 % (0-3); % LYMPHS 12 % (24-48); % METAS 1 % (0-0); % MONOS 5 % (0-10); % SEGS 77 % (35-66); PLT ESTIMATE ADEQUATE (ADEQUATE)
[2019-03-30 06:45] LABS: ANISOCYTOSIS SLIGHT; POLYCHROMASIA SLIGHT
[2019-03-30 06:46] LABS: TOXIC GRANULATION SLIGHT
[2019-03-30] MEDS ORDERED: ALBUTEROL SULFATE 2.5 MG/3 ML NEBU. IH PRN (08:30)
[2019-03-30] MEDS ORDERED: clonazePAM 0.5 MG TABLET PO PRN (08:30)
[2019-03-30] MEDS ORDERED: POLYETHYLENE GLYCOL 3350 17 GM PACKET. PO PRN (08:30)
[2019-03-30] MEDS: NON FORMULARY ITEM (Dasatinib (Sprycel) 100 MG) PO SCH (09:00)
[2019-03-30] MEDS ORDERED: SALMETEROL IH SCH (09:00)
[2019-03-30] MEDS ORDERED: MAGNESIUM OXIDE 400 MG TABLET PO PRN (09:00)
[2019-03-30] MEDS ORDERED: FLUTICASONE PROPION IH SCH (09:00)
[2019-03-30] MEDS ORDERED: PROCHLORPERAZINE 5 MG TABLET. PO PRN (09:15)
[2019-03-30] MEDS: FLUTICASONE 50MCG/NASAL SPRAY 16GM BOTTLE. NS SCH (10:00)
[2019-03-30] MEDS: ALBUTEROL SULFATE 2.5 MG/3 ML NEBU. NEB SCH ×3 (11:11→19:52)
[2019-03-30] MEDS: BUDESONIDE 0.5 MG/2 ML NEBU NEB SCH ×2 (11:12→19:52)
[2019-03-30 11:16] VITALS: BP 127/84
[2019-03-30] MEDS: OXYBUTYNIN CHLORIDE 5 MG TABLET PO SCH ×2 (12:54→21:54)
[2019-03-30] MEDS: cycloSPORINE 0.05% OPTH 1 DROP DROPERETTE OU SCH ×2 (12:54→21:54)
[2019-03-30] MEDS: APIXABAN 5 MG TABLET. PO SCH ×2 (12:54→21:56)
[2019-03-30] MEDS: FERROUS SULFATE 325 MG TABLET. PO SCH (12:55)
[2019-03-30] MEDS: DULoxetine HCL 60 MG CAPSULE.DR PO SCH ×2 (12:55→21:54)
[2019-03-30] MEDS: metFORMIN 500 MG TABLET PO SCH ×2 (12:55→16:33)
[2019-03-30] MEDS: SUCRALFATE 1 GM/10 ML ORAL.SUSP. PO SCH ×3 (12:56→21:56)
[2019-03-30] MEDS: PREGABALIN 75 MG CAPSULE PO SCH ×2 (12:56→21:54)
[2019-03-30] MEDS: NYSTATIN TOPICAL POWDER 15GM BOTTLE. TP SCH ×2 (12:56→21:00)
[2019-03-30] MEDS: VANCOMYCIN 1.5 GM in IV NORMAL SALINE 500ML 500 ML IV SCH ×2 (13:06→23:21)
[2019-03-30 14:54] VITALS: BP 123/73
[2019-03-30] MEDS: ACETAMINOPHEN 500 MG TABLET PO PRN (15:59)
[2019-03-30] MEDS ORDERED: DEXTROSE 50% 25 GM / 50ML DISP.SYRIN. IV PRN (16:00)
[2019-03-30] MEDS: INSULIN LISPRO 300 UNITS/3 ML VIAL. SQ SCH (17:00)
--- NOTE | 2019-03-30 17:53 | HP ---
ADMIT DATE: 03/29/2019 HISTORY OF PRESENT ILLNESS: The patient is a 48-year-old female patient, who presented to the Emergency Room with complaint of shortness of breath, wheezing and generalized weakness. She has a history of multiple medical issues primarily type 2 diabetes, morbid obesity, anxiety, depression, hyperlipidemia, hypertension, kidney stones, ovarian cyst deconditioning. She apparently was diagnosed with brain tumor, treated surgically at [facility] and from there she went to the [facility] [place], and was discharged only about a week ago. She was evaluated in the Emergency Room of [facility]. Her EKG showed that she was in sinus tachycardia with heart rate of 114 beats per minute. Her chest x-ray showed that the cardiomediastinal silhouette and pulmonary vessels are within normal limits, patchy airspace disease within the right upper and middle lobes. No pleural effusion and as her D-dimer was high, she has had a CT angio of the chest, which showed multifocal opacities throughout the right greater on the left lung, which could be from multifocal pneumonia with other possible cause including aspiration. There is also ground glass component; therefore, superimposed edema is not excluded. We would obtain a followup to ensure that this resolves, to exclude neoplastic causes. She has enlarged lymph nodes within the mediastinum and hilum, could be reactive in nature, but follow up would be needed to ensure this result to exclude neoplasm. No embolus is in main pulmonary arteries, but large amount of motion obscures ____. The patient was admitted with probably healthcare-associated pneumonia and was started on IV vancomycin and ceftriaxone for possible healthcare-associated pneumonia. PAST MEDICAL HISTORY: Significant for type 2 diabetes mellitus, hypertension, hyperlipidemia, morbid obesity, obstructive sleep apnea, history of bronchial asthma/COPD. She has also history of brain tumor that was resected recently at [facility]. PAST SURGICAL HISTORY: Significant for multiple ovarian cysts removal and 3 C-sections. She has total abdominal hysterectomy, bilateral salpingectomy, appendectomy, cholecystectomy and back surgery. ALLERGIES: She is allergic to AZITHROMYCIN, CODEINE, and MORPHINE. FAMILY HISTORY: She has 2 brothers and 3 sisters. One brother is older and the rest are younger, all have hypertension and diabetes. Her father at the age of 60 due to massive myocardial infarction. Mother is still alive in her 70s and has diabetes and ovarian, liver, and thyroid cancer. SOCIAL HISTORY: She is . She has 1 daughter and 2 sons. She quit smoking about 8 months ago. She does not drink alcohol or use any recreational drugs. She is for a [id number] mom. MEDICATIONS: She is currently on following medications: She is on diphenhydramine 25 mg every 12 hours, dasatinib 100 mg tablet once a day, albuterol sulfate 8.5 grams 2 puffs every 4-6 hours, ferrous sulfate 325 mg daily, apixaban 5 mg twice a day, Crestor 20 mg at bedtime, metoprolol succinate 50 mg once a day. She is on acetaminophen 1000 mg every 6 hours as needed, clonazepam 0.5 mg 1 tablet daily p.r.n. for anxiety. She is on pregabalin 150 mg 3 times a day, topiramate 50 mg at bedtime, duloxetine 60 mg twice a day. She is on fluticasone propionate, salmeterol for Wixela 1 inhalation twice a day, Flonase 2 sprays to each nostril once a day, cyclosporine for Restasis 1 drop to both eyes twice a day, magnesium oxide 400 mg 2 tablets q.12 hours. She is on polyethylene glycol 17 grams daily p.r.n. for constipation, prochlorperazine 10 mg q.12 hours, sucralfate 1 gram 4 times a day. She is on metformin 1000 mg twice a day and Levemir insulin 34 units at bedtime. She is on nystatin and 15 grams powder apply topically twice a day, oxybutynin chloride 10 mg daily. PHYSICAL EXAMINATION: GENERAL: On arrival to the Emergency Room, the patient was tachypneic, but was clearly febrile. No pallor, jaundice, cyanosis or thyromegaly. No jugular venous distention. No limb edema. VITAL SIGNS: Her heart rate was 115, blood pressure was 102/44, temperature was 100, respiratory rate 22, and oxygen saturation was 91%. HEAD, EYES, EARS, NOSE AND THROAT: Showed normocephalic, atraumatic. NECK: Supple. HEART: Showed normal first and second heart sounds. No gallop or murmur. CHEST: Shows central trachea, equal bilateral expansion, air entry, vesicular breath sounds with crepitation mostly in the right side, very few scattered rhonchi. ABDOMEN: Distended, soft, nontender. NEUROLOGIC: She is awake, alert. She has right sided hemiplegia, more so on the right upper than right lower extremity. She has also expressive aphasia. LABORATORY DATA: Her lab work on arrival showed a white cell count of 10,800, hemoglobin 10, hematocrit 30, MCV 96, and platelet count of 381,000. Her chemistry on arrival showed that her serum sodium 142, potassium 3.5, chloride 106, bicarbonate 26, anion gap of 10, BUN 12, creatinine was 0.7, estimated GFR was 89 mL per minute, his glucose was 102, calcium was 8.1, magnesium was 1.7. Total bilirubin, AST, ALT, alkaline phosphatase were normal. Her BNP was 707. Total protein was 6.5, albumin 3. Lipase was 88. Her prothrombin time, INR and APTT are all normal. Her D-dimer was high at 2.09. Her urinalysis was essentially unremarkable. Toxic screen was positive for opiates. Her influenza A and B were negative. ASSESSMENT AND PLAN: In summary, this is a 48-year-old female patient who was admitted through the Emergency Room with worsening shortness of breath and fever and chest congestion. She was diagnosed with probably healthcare-associated pneumonia. She was started on IV antibiotic in the form of vancomycin and Zosyn, we will continue. Her D-dimer was high; however, she is already on apixaban. Her CT angio of the chest was negative for pulmonary emboli and there is no need to do the venous Doppler ultrasound of both lower extremities given that she is already protected and covered with apixaban. We will obviously have to monitor her blood sugar and have started her on a low dose sliding scale if necessary. She has a history of acute lymphatic leukemia and also a brain tumor that was resected surgically and treated. She is markedly cushingoid. Apparently, she was on high dose dexamethasone, which was tapered and discontinued when she was discharged from the rehab center recently. JD GUNDERSON MD DR: INGRIS/felipe JOB#: [id number] / [id number]
--- NOTE | 2019-03-30 19:02 | RAD ---
CT HEAD WO CONTRAST Date: 03/30/2019 6:33 PM Clinical Indication: Headache, recent brain tumor resection/debulking Comparison: 12/31/2018. Technique: 5 mm axial tomographic images were obtained of the head without contrast. These were viewed on brain and bone windows. One or more of the following dose reduction techniques were utilized: Automated exposure control (AEC), Adjustment of mA and/or kV according to patient size, Use of iterative reconstruction technique such as ASiR, CT scan done according to ALARA and image gently/image wisely Findings: Post surgical changes of left high parietal craniotomy and underlying tumor resection resection/debulking. Significantly improved white matter hypoattenuation in the operative bed, with some volume loss. No acute hemorrhage. The ventricles are normal in size, shape, and morphology. The rabago-white matter junction is normal. The subarachnoid cisterns are patent. Left ethmoid and sphenoid sinus air-fluid level. The visualized portions of the orbits and globes are normal. The mastoid air cells are clear. The seat cover cutter topogram shows no lytic lesion or fracture. Impression: Prior left parietal craniotomy and tumor resection/debulking. Significantly improved white matter hypoattenuation deep to the craniotomy defect, which could be improving edema and/or encephalomalacia (given some parenchymal volume loss). No acute hemorrhage. No mass effect. Left ethmoid and sphenoid sinus air-fluid levels, which could represent acute sinusitis in the appropriate clinical setting. Electronically signed by: Kj Davidson MD (03/30/2019 6:59 PM) [id number]
[2019-03-30 19:06] VITALS: BP 103/67
[2019-03-30] MEDS: INSULIN GLARGINE SYRINGE. SQ SCH (21:00)
[2019-03-30] MEDS: ATORVASTATIN CALCIUM 20 MG TABLET PO SCH (21:55)
[2019-03-30] MEDS: TOPIRAMATE 25 MG TABLET. PO SCH (21:55)
[2019-03-30] MEDS: METOPROLOL SUCC 24HR ER 50 MG TAB.ER.24H. PO SCH (21:59)
[2019-03-30] MEDS: diphenhydrAMINE HCL 25 MG CAPSULE PO PRN (23:22)
--- NOTE | 2019-03-30 23:23 | PN ---
DATE: 03/30/2019 SUBJECTIVE: The patient is resting, was admitted last night with increasing shortness of breath, cough and she was extensively investigated in the Emergency Room, was found to have pneumonia, was started on IV antibiotic in the form of vancomycin and ceftriaxone. When I saw her this afternoon, she was extremely cushingoid, complaining of headache and apparently her tumor was incompletely resected. PHYSICAL EXAMINATION: GENERAL: When I saw her this afternoon, she looked well and was clearly in no apparent respiratory distress. No pallor, jaundice, cyanosis or thyromegaly. No jugular venous distention. No limb edema. VITAL SIGNS: Her heart rate was 118, blood pressure was 123/73, temperature was 98, respiratory rate was 16, and oxygen saturation was 94%. HEAD, EYES, EARS, NOSE AND THROAT: Normocephalic, atraumatic. NECK: Supple. HEART: Showed normal first and second heart sounds. No gallop, rub or murmur. CHEST: Clear to auscultation. No crepitation or rhonchi. ABDOMEN: Distended, soft, nontender. No guarding or rigidity. No organomegaly. All hernial orifice intact. Bowel sounds normal. NEUROLOGIC: She is awake, alert, has difficulty finding words and has right sided hemiplegia. Her intake and output are incompletely recorded. LABORATORY DATA: Her lab work this morning showed a serum sodium 142, potassium 3.4, chloride 106, bicarbonate 22, anion gap of 14, BUN 11, creatinine 0.5, estimated GFR was 132 mL per minute. Her glucose was 121, calcium was 8.2. White cell count is down to 6600, hemoglobin 9.6, hematocrit 30, MCV 95, and platelet count 350,000 with normal manual differential. ASSESSMENT: Healthcare-associated pneumonia. Continue with IV antibiotic. The patient has multiple other medical problems including hyperlipidemia, hypertension, type 2 diabetes mellitus and she has also diabetic peripheral neuropathy. PLAN: My plan is to also monitor her blood sugar and to be started on low dose sliding scale. JD GUNDERSON MD DR: INGRIS/felipe JOB#: [id number] / [id number]
[2019-03-30] MEDS ORDERED: diphenhydrAMINE HCL 25 MG CAPSULE PO ONE (23:30)
[2019-03-30 23:54] VITALS: BP 101/64
[2019-03-31] MEDS: ACETAMINOPHEN 500 MG TABLET PO PRN (03:47)
[2019-03-31 03:50] LABS: HEMATOCRIT 29.7 % (36.0-47.0); RED BLOOD COUNT 3.01 x10^6/uL (3.50-5.40); RED CELL DISTRIBUTION WIDTH 19.5 % (11.5-14.5); WHITE BLOOD COUNT 11.3 x10^3/uL (4.0-11.0)
[2019-03-31 04:46] LABS: VANC TR 29.8 mcg/mL (10.0-20.0)
[2019-03-31] MEDS: ALBUTEROL SULFATE 2.5 MG/3 ML NEBU. NEB SCH ×4 (05:00→21:50)
[2019-03-31] MEDS: VANCOMYCIN PER PHARMACY MC PRN (05:37)
[2019-03-31 06:10] VITALS: BP 105/67
[2019-03-31] MEDS ORDERED: ALBUTEROL SULFATE 2.5 MG/3 ML NEBU. IH PRN (06:10)
[2019-03-31 06:30] LABS: ALBUMIN 2.8 g/dL (3.4-5.0); ALBUMIN/GLOBULIN RATIO 0.7 (1.0-1.7); CALCIUM 8.1 mg/dL (8.5-10.1); CREATININE 0.6 mg/dL (0.6-1.0); GFR 107.2; TOTAL BILIRUBIN 0.3 mg/dL (0.2-1.0); TOTAL PROTEIN 6.6 g/dL (6.4-8.2)
[2019-03-31 06:33] LABS: POTASSIUM 2.9 mmol/L (3.5-5.1)
[2019-03-31] MEDS ORDERED: POTASSIUM CHLORIDE 20 MEQ TABLET.ER. PO ONE ×3 (07:00→10:00)
--- NOTE | 2019-03-31 07:59 | PDOC2 ---
BRAYAN TERRELL PHOTOGRAPHER FINISH 03/31/19 0759: CARDIAC CONSULT DATE OF CONSULT Date Of Consult DATE: 03/31/19 TIME: 07:57 REASON FOR CONSULT Reason for Consult CHF Dyspnea Hypertension REFERRING PHYSICIAN Referring Physician Dr. Lewis SOURCE Source: Chart review, Patient HPI History of Present Illness This is a 48 yo female who presented secondary to shortness of breath and weakness. Has history of brain tumor s/p recent craniotomy. Was discharged to [facility]. Was discharged home about a week and a half ago. Has had persistent cough for the last week. Also noted with fevers. No dizziness, diaphoresis, chest pain, palpitations, or LE edema. Follows with [facility], Dr. Santacruz. Has had stress test and echocardiogram within the last year. Was cleared for craniotomy recently from CV perspective. PAST MEDICAL HISTORY Past Medical History TIA, brain tumor Cardiovascular: HTN, hyperipidemia Pulmonary: Asthma, Pneumonia, Other (PE, RUDDY) CENTRAL NERVOUS SYSTEM: Periperal neuropathy GI: GERD, Irritable bowel disease Heme/Onc: Cancer (leukemia ) Psych: Anxiety, Depression Endocrine: Diabetes PAST SURGICAL HISTORY Past Surgical History: Appendectomy, Cholecystectomy, Hysterectomy, Other (craniotomy, back surgery ) FAMILY HISTORY Family History: Hypertension SOCIAL HISTORY Smoke: Quit (1 year ago ) ALCOHOL: none Drugs: None Lives: with Family CURRENT MEDICATIONS Current Medications Current Medications Aspirin (Daniel Aspirin) 325 mg 1X ONCE PO Last administered on 03/29/19at 22:00; Start 03/29/19 at 22:00; Stop 03/29/19 at 22:01; Status DC Lactated Ringer's 1,000 ml @ 100 mls/hr Q10H IV Last administered on 03/29/19at 22:00; Start 03/29/19 at 22:00; Stop 03/30/19 at 07:59; Status DC Albuterol/ Ipratropium (Duoneb) 3 ml 1X ONCE NEB Last administered on 03/29/19at 22:00; Start 03/29/19 at 22:00; Stop 03/29/19 at 22:01; Status DC Methylprednisolone Sodium Succinate (SOLU-Medrol 125MG VIAL) 125 mg 1X ONCE IV Last administered on 03/29/19at 22:00; Start 03/29/19 at 22:00; Stop 03/29/19 at 22:01; Status DC Ceftriaxone Sodium 1 gm/ Sodium Chloride 50 ml @ 100 mls/hr 1X ONCE IV Last administered on 03/30/19at 00:52; Start 03/30/19 at 00:00; Stop 03/30/19 at 00:29; Status DC Vancomycin HCl 1 gm/Sodium Chloride 250 ml @ 250 mls/hr 1X ONCE IV ; Start 03/29/19 at 23:45; Stop 03/30/19 at 00:44; Status UNV Vancomycin HCl (Vanco Per Pharmacy) 1 each PRN DAILY PRN MC SEE COMMENTS Last administered on 03/31/19at 05:37; Start 03/29/19 at 23:45 Iohexol (Omnipaque 350 Mg/ml) 100 ml 1X ONCE IV Last administered on 03/30/19at 00:05; Start 03/30/19 at 00:00; Stop 03/30/19 at 00:01; Status DC Ondansetron HCl (Zofran) 4 mg PRN Q4HRS PRN IV NAUSEA/VOMITING; Start 03/29/19 at 23:45; Stop 03/30/19 at 23:44; Status DC Acetaminophen (Tylenol) 650 mg PRN Q4HRS PRN PO FEVER Last administered on 03/30/19at 05:13; Start 03/29/19 at 23:45; Stop 03/30/19 at 09:16; Status DC Albuterol/ Ipratropium (Duoneb) 3 ml RTQID NEB Last administered on 03/30/19at 11:10; Start 03/30/19 at 08:00; Stop 03/30/19 at 14:13; Status DC Magnesium Sulfate 50 ml @ 25 mls/hr 1X ONCE IV Last administered on 03/30/19at 00:52; Start 03/30/19 at 00:00; Stop 03/30/19 at 02:00; Status DC Ceftriaxone Sodium 1 gm/ Sodium Chloride 50 ml @ 100 mls/hr QHS IV Last administered on 03/30/19at 21:54; Start 03/30/19 at 21:00 Vancomycin HCl 1 gm/Sodium Chloride 250 ml @ 250 mls/hr 1X ONCE IV ; Start 03/29/19 at 23:45; Stop 03/30/19 at 00:44; Status UNV Vancomycin HCl (Vanco Per Pharmacy) 1 each PRN DAILY PRN MC SEE COMMENTS; Start 03/29/19 at 23:45; Status UNV Info (Do NOT chart on this entry -- for MONITORING) 1 each PRN DAILY PRN MC SEE COMMENTS; Start 03/29/19 at 23:45; Stop 03/31/19 at 23:44 Vancomycin HCl 2 gm/Sodium Chloride 500 ml @ 250 mls/hr 1X ONCE IV Last administered on 03/30/19at 03:29; Start 03/30/19 at 00:30; Stop 03/30/19 at 02:29; Status DC Sodium Chloride 50 ml @ As Directed STK-MED ONCE .ROUTE ; Start 03/30/19 at 00:48; Stop 03/30/19 at 00:48; Status DC Ceftriaxone Sodium (Rocephin) 1 gm STK-MED ONCE .ROUTE ; Start 03/30/19 at 00:48; Stop 03/30/19 at 00:48; Status DC Vancomycin HCl 1.5 gm/Sodium Chloride 500 ml @ 250 mls/hr Q8H IV Last administered on 03/30/19at 23:21; Start 03/30/19 at 12:00; Stop 03/31/19 at 04:53; Status DC Vancomycin HCl (Vancomycin Trough Level) 1 each 1X ONCE MC Last administered on 03/31/19at 03:30; Start 03/31/19 at 03:30; Stop 03/31/19 at 03:31; Status DC Acetaminophen (Tylenol) 1,000 mg PRN Q6HRS PRN PO mild pain or fever Last administered on 03/31/19at 03:47; Start 03/30/19 at 08:30 Albuterol Sulfate (Ventolin) 1 mg PRN Q6HRS PRN IH wheezing; Start 03/30/19 at 08:30; Stop 03/31/19 at 06:10; Status DC Apixaban (Eliquis) 5 mg BID PO Last administered on 03/30/19at 21:56; Start 03/30/19 at 09:00 Clonazepam (KlonoPIN) 0.5 mg PRN DAILY PRN PO ANXIETY / AGITATION Last administered on 03/30/19at 17:25; Start 03/30/19 at 08:30 Cyclosporine (Restasis) 1 drop BID OU Last administered on 03/30/19at 21:54; Start 03/30/19 at 09:00 Duloxetine HCl (Cymbalta) 60 mg BID PO Last administered on 03/30/19at 21:54; Start 03/30/19 at 10:00 Ferrous Sulfate (Feosol) 325 mg DAILYWBKFT PO Last administered on 03/30/19at 12:55; Start 03/30/19 at 12:00 Metoprolol Succinate (Toprol Xl) 50 mg HS PO Last administered on 03/30/19at 21:59; Start 03/30/19 at 21:00 Nystatin (Nystop) 1 brent BID TP Last administered on 03/30/19at 12:56; Start 03/30/19 at 10:00 Polyethylene Glycol (miraLAX) 17 gm PRN DAILY PRN PO CONSTIPATION; Start 03/30/19 at 08:30 Sucralfate (Carafate) 1 gm QIDACHS PO Last administered on 03/30/19at 21:56; Start 03/30/19 at 11:30 Non-Formulary Medication (Dasatinib (Sprycel)) 100 mg DAILY PO Last admin istered on 03/30/19at 09:00; Start 03/30/19 at 09:00; Status UNV Diphenhydramine HCl (Benadryl) 25 mg PRN Q12HR PRN PO HEADACHE Last administered on 03/30/19at 23:22; Start 03/30/19 at 08:30 Non-Formulary Medication (Fluticasone Propion/ Salmeterol (Wixela 500-50 Inhub)) 1 each BID IH ; Start 03/30/19 at 09:00; Stop 03/30/19 at 09:13; Status DC Fluticasone Propionate (Flonase) 2 spray DAILY NS ; Start 03/30/19 at 10:00 Insulin Glargine (Lantus Syringe) 34 unit QHS SQ ; Start 03/30/19 at 21:00 Magnesium Oxide (Magnesium Oxide) 400 mg PRN BID PRN PO SUPPLEMENT; Start 03/30/19 at 09:00 Metformin HCl (Glucophage) 1,000 mg BIDWMEALS PO Last administered on 03/30/19at 16:33; Start 03/30/19 at 10:00 Oxybutynin Chloride (Ditropan) 5 mg BID PO Last administered on 03/30/19at 21:54; Start 03/30/19 at 10:00 Pregabalin (Lyrica) 150 mg BID PO Last administered on 03/30/19at 21:54; Start 03/30/19 at 10:00 Prochlorperazine Maleate (Compazine) 10 mg PRN Q12HR PRN PO NAUSEA/VOMITING; Start 03/30/19 at 09:15 Atorvastatin Calcium (Lipitor) 80 mg QHS PO Last administered on 03/30/19at 21:55; Start 03/30/19 at 21:00 Topiramate (Topamax) 50 mg QHS PO Last administered on 03/30/19at 21:55; Start 03/30/19 at 21:00 Albuterol Sulfate (Ventolin) 2.5 mg RTQID NEB Last administered on 03/31/19at 05:00; Start 03/30/19 at 12:00 Budesonide (Pulmicort) 0.5 mg RTBID NEB Last administered on 03/30/19at 19:52; Start 03/30/19 at 12:00 Insulin Human Lispro (HumaLOG) 0-5 UNITS TIDWMEALS SQ ; Start 03/30/19 at 17:00 Dextrose (Dextrose 50%-Water Syringe) 12.5 gm PRN Q15MIN PRN IV SEE COMMENTS; Start 03/30/19 at 16:00 Lactobacillus Rhamnosus (Culturelle) 1 cap BID PO ; Start 03/31/19 at 09:00; Stop 03/31/19 at 06:46; Status DC Vancomycin HCl 1.5 gm/Sodium Chloride 500 ml @ 250 mls/hr Q12H IV ; Start 03/31/19 at 11:00 Vancomycin HCl (Vancomycin Trough Level) 1 each 1X ONCE MC ; Start 04/01/19 at 22:30; Stop 04/01/19 at 22:31 Albuterol Sulfate (Ventolin) 2.5 mg PRN Q6HRS PRN IH wheezing; Start 03/31/19 at 06:10 Potassium Chloride (Klor-Con) 40 meq 1X ONCE PO ; Start 03/31/19 at 07:00; Stop 03/31/19 at 07:01; Status DC Potassium Chloride (Klor-Con) 40 meq 1X ONCE PO ; Start 03/31/19 at 08:00; Stop 03/31/19 at 08:01 Potassium Chloride (Klor-Con) 40 meq 1X ONCE PO ; Start 03/31/19 at 10:00; Stop 03/31/19 at 10:01 Active Scripts Active Reported Toprol Xl (Metoprolol Succinate) 50 Mg Tab.er.24h 50 Mg PO HS Topiramate 50 Mg Tablet 50 Mg PO HS Sprycel (Dasatinib) 100 Mg Tablet 100 Mg PO DAILY Crestor (Rosuvastatin Calcium) 20 Mg Tablet 20 Mg PO HS Prochlorperazine Maleate 10 Mg Tablet 1 Tab PO PRN Q12HR PRN Lyrica (Pregabalin) 150 Mg Capsule 1 Cap PO TID Ditropan Xl (Oxybutynin Chloride) 10 Mg Tab.er.24 1 Tab PO DAILY 30 Days Nystatin 15 Gm Powder 1 Brent TP BID 7 Days apply to affected area(s) Miralax (Polyethylene Glycol 3350) 17 Gm Powd.pack 1 Packet PO PRN DAILY PRN 2 Days dissolve in water Glucophage (Metformin Hcl) 1,000 Mg Tablet 1 Tab PO BID Magnesium Oxide 400 Mg Tablet 2 Tab PO PRN Q12HR PRN Levemir (Insulin Detemir) 100 Unit/1 Ml Vial 34 Unit SQ HS Ferrous Sulfate 325 Mg Tablet 325 Mg PO DAILYWBKFT Diphenhydramine Hcl 25 Mg Tablet 25 Mg PO PRN Q12HR PRN Restasis (Cyclosporine) 1 Each Droperette 1 Drop EACHEYE BID Clonazepam 0.5 Mg Tablet 1 Tab PO PRN DAILY PRN Eliquis (Apixaban) 5 Mg Tablet 5 Mg PO BID Acetaminophen 500 Mg Tablet 2 Tab PO PRN Q6HRS PRN 15 Days Wixela 500-50 Inhub (Fluticasone Propion/Salmeterol) 1 Each Blst.w.dev 1 Each IH BID Carafate (Sucralfate) 1 Gm/10 Ml Oral.susp 1 Gm PO QIDACHS Flonase Allergy Relief (Fluticasone Propionate) 9.9 Ml [place].susp 2 Sprays NS DAILY Cymbalta (Duloxetine Hcl) 60 Mg Capsule.dr 1 Cap PO BID Proair Hfa Inhaler (Albuterol Sulfate) 8.5 Gm Hfa.aer.ad 2 Puff IH PRN Q4-6HRS PRN 21 Days ALLERGIES Allergies: Coded Allergies: azithromycin (Verified Allergy, Intermediate, HIVES, 11/29/18) codeine (Verified Allergy, Intermediate, 11/29/18) morphine (Verified Allergy, Intermediate, Palpitations, 03/18/15) STATES BLOOD PRESSURE WENT UP AND HEART RATE WENT UP ROS Review of Systems 14 point ROS conducted with pertinent positives noted above in HPI PHYSICAL EXAM General: Alert, Oriented X3, Cooperative HEENT: Atraumatic, Mucous membr. moist/pink Lungs: Other (diminished, faint rhonchi ) Heart: Regular rate, Normal S1, Normal S2, No murmurs Abdomen: Soft Extremities: No edema Skin: No rashes, No breakdown Neuro: Normal speech, Sensation intact Psych/Mental Status: Mental status NL, Mood NL MUSCULOSKELETAL: Osteoarthritic changes both hands VITALS Vital Signs Vital Signs Date Time Temp Pulse Resp B/P (MAP) Pulse Ox O2 Delivery O2 Flow Rate FiO2 03/31/19 06:10 98.1 107 18 105/67 (80) 94 Room Air LABS LABS Laboratory Tests Test 03/29/19 22:00 03/29/19 22:28 03/30/19 05:46 03/30/19 07:40 White Blood Count 10.8 x10^3/uL (4.0-11.0) 6.6 x10^3/uL (4.0-11.0) Red Blood Count 3.19 x10^6/uL (3.50-5.40) 3.16 x10^6/uL (3.50-5.40) Hemoglobin 9.9 g/dL (12.0-15.5) 9.6 g/dL (12.0-15.5) Hematocrit 30.5 % (36.0-47.0) 30.2 % (36.0-47.0) Mean Corpuscular Volume 96 fL (79-100) 95 fL (79-100) Mean Corpuscular Hemoglobin 31 pg (25-35) 30 pg (25-35) Mean Corpuscular Hemoglobin Concent 32 g/dL (31-37) 32 g/dL (31-37) Red Cell Distribution Width 18.8 % (11.5-14.5) 18.3 % (11.5-14.5) Platelet Count 381 x10^3/uL (140-400) 350 x10^3/uL (140-400) Neutrophils (%) (Auto) 51 % (31-73) 78 % (31-73) Lymphocytes (%) (Auto) 35 % (24-48) 19 % (24-48) Monocytes (%) (Auto) 13 % (0-9) 3 % (0-9) Eosinophils (%) (Auto) 1 % (0-3) 0 % (0-3) Basophils (%) (Auto) 0 % (0-3) 0 % (0-3) Neutrophils # (Auto) 5.5 x10^3uL (1.8-7.7) 5.2 x10^3uL (1.8-7.7) Lymphocytes # (Auto) 3.7 x10^3/uL (1.0-4.8) 1.2 x10^3/uL (1.0-4.8) Monocytes # (Auto) 1.4 x10^3/uL (0.0-1.1) 0.2 x10^3/uL (0.0-1.1) Eosinophils # (Auto) 0.1 x10^3/uL (0.0-0.7) 0.0 x10^3/uL (0.0-0.7) Basophils # (Auto) 0.0 x10^3/uL (0.0-0.2) 0.0 x10^3/uL (0.0-0.2) Prothrombin Time 10.7 SEC (9.4-11.4) Prothromb Time International Ratio 1.0 (0.9-1.1) Activated Partial Thromboplast Time 31 SEC (23-33) D-Dimer (Carina) 2.09 mg/L (0.00-0.50) Sodium Level 142 mmol/L (136-145) 142 mmol/L (136-145) Potassium Level 3.5 mmol/L (3.5-5.1) 3.4 mmol/L (3.5-5.1) Chloride Level 106 mmol/L (98-107) 106 mmol/L (98-107) Carbon Dioxide Level 26 mmol/L (21-32) 22 mmol/L (21-32) Anion Gap 10 (6-14) 14 (6-14) Blood Urea Nitrogen 12 mg/dL (7-20) 11 mg/dL (7-20) Creatinine 0.7 mg/dL (0.6-1.0) 0.5 mg/dL (0.6-1.0) Estimated GFR (Cockcroft-Gault) 89.7 132.2 Glucose Level 102 mg/dL (70-99) 221 mg/dL (70-99) Calcium Level 8.1 mg/dL (8.5-10.1) 8.2 mg/dL (8.5-10.1) Magnesium Level 1.7 mg/dL (1.8-2.4) Total Bilirubin 0.4 mg/dL (0.2-1.0) Direct Bilirubin 0.2 mg/dL (0.0-0.2) Aspartate Amino Transf (AST/SGOT) 36 U/L (15-37) Alanine Aminotransferase (ALT/SGPT) 34 U/L (14-59) Alkaline Phosphatase 73 U/L (46-116) Creatine Kinase 71 U/L (26-192) Troponin I Quantitative < 0.017 ng/mL (0-0.055) RO-Uhz-N-Type Natriuretic Peptide 707 pg/mL (0-124) Total Protein 6.5 g/dL (6.4-8.2) Albumin 3.0 g/dL (3.4-5.0) Lipase 88 U/L (73-393) Thyroid Stimulating Hormone (TSH) 1.572 uIU/mL (0.358-3.740) Influenza Type A (Rapid) Negative (NEGATIVE) Influenza Type B (Rapid) Negative (NEGATIVE) Urine Collection Type Unknown Urine Color Yellow Urine Clarity Hazy Urine pH 5.0 Urine Specific [place] 1.025 Urine Protein Trace (NEG-TRACE) Urine Glucose (UA) Neg mg/dL (NEG) Urine Ketones (Stick) Neg mg/dL (NEG) Urine Blood Large (NEG) Urine Nitrite Neg (NEG) Urine Bilirubin Neg (NEG) Urine Urobilinogen Dipstick 0.2 mg/dL (0.2 mg/dL) Urine Leukocyte Esterase Neg (NEG) Urine RBC 1-2 /HPF (0-2) Urine WBC 1-4 /HPF (0-4) Urine Squamous Epithelial Cells Occ /LPF Urine Amorphous Sediment Present /HPF Urine Bacteria 0 /HPF (0-FEW) Urine Opiates Screen Pos (NEG) Urine Methadone Screen Neg (NEG) Urine Barbiturates Neg (NEG) Urine Phencyclidine Screen Neg (NEG) Urine Amphetamine/Methamphetamine Neg (NEG) Urine Benzodiazepines Screen Neg (NEG) Urine Cocaine Screen Neg (NEG) Urine Cannabinoids Screen Neg (NEG) Urine Ethyl Alcohol Neg (NEG) Segmented Neutrophils % 77 % (35-66) Band Neutrophils % 4 % (0-9) Lymphocytes % 12 % (24-48) Monocytes % 5 % (0-10) Basophils % 1 % (0-3) Metamyelocytes % 1 % (0-0) Toxic Granulation Slight Platelet Estimate Adequate (ADEQUATE) Large Platelets Occ Giant Platelets Occ Polychromasia Slight Anisocytosis Slight Glucose (Fingerstick) 205 mg/dL (70-99) Test 03/30/19 11:28 03/30/19 16:35 03/30/19 20:15 03/31/19 03:39 Glucose (Fingerstick) 201 mg/dL (70-99) 165 mg/dL (70-99) 129 mg/dL (70-99) White Blood Count 11.3 x10^3/uL (4.0-11.0) Red Blood Count 3.01 x10^6/uL (3.50-5.40) Hemoglobin 9.0 g/dL (12.0-15.5) Hematocrit 29.7 % (36.0-47.0) Mean Corpuscular Volume 99 fL (79-100) Mean Corpuscular Hemoglobin 30 pg (25-35) Mean Corpuscular Hemoglobin Concent 30 g/dL (31-37) Red Cell Distribution Width 19.5 % (11.5-14.5) Platelet Count 403 x10^3/uL (140-400) Vancomycin Level Trough 29.8 mcg/mL (10.0-20.0) Vancomycin Last Dose Date 03/30/2019 Vancomycin Last Dose Time 1999 Test 03/31/19 06:03 03/31/19 07:36 Sodium Level 145 mmol/L (136-145) Potassium Level 2.9 mmol/L (3.5-5.1) Chloride Level 110 mmol/L (98-107) Carbon Dioxide Level 20 mmol/L (21-32) Anion Gap 15 (6-14) Blood Urea Nitrogen 11 mg/dL (7-20) Creatinine 0.6 mg/dL (0.6-1.0) Estimated GFR (Cockcroft-Gault) 107.2 BUN/Creatinine Ratio 18 (6-20) Glucose Level 139 mg/dL (70-99) Calcium Level 8.1 mg/dL (8.5-10.1) Total Bilirubin 0.3 mg/dL (0.2-1.0) Aspartate Amino Transf (AST/SGOT) 24 U/L (15-37) Alanine Aminotransferase (ALT/SGPT) 28 U/L (14-59) Alkaline Phosphatase 61 U/L (46-116) Lactate Dehydrogenase 355 U/L (81-234) Total Protein 6.6 g/dL (6.4-8.2) Albumin 2.8 g/dL (3.4-5.0) Albumin/Globulin Ratio 0.7 (1.0-1.7) Glucose (Fingerstick) 145 mg/dL (70-99) ECHOCARDIOGRAM Echocardiogram <Conclusion> The left ventricular systolic function is normal. The ejection fraction is estimated at 60-65%. There is normal LV segmental wall motion. Transmitral Doppler flow pattern is Grade I-abnormal relaxation pattern. There is no evidence of significant pericardial effusion. DATE: 02/17/17 1402 STRESS TEST Stress Test Conclusion 1. Normal heart rate and blood pressure response to exercise. 2. No chest pain, arrhythmias or ECG changes during exercise. 3. Fair exercise capacity. Kaufman score 6. 4. Small, moderately intense, reversible apical defect with small ischemia. 5. Normal wall motion. 6. Calculated ejection fraction 77%. DATE: 02/22/15 1250 ASSESSMENT/PLAN Assessment/Plan 1. Dyspnea, chest congestion, fevers. NT Pro BNP mildly elevated, but CXR, CT chest without pulm edema. doubt overt HF. 2. Probable PNA 3. Brain tumor s/p recent craniotomy; Reports normal stress test and echocardiogram at [facility] prior to surgery. 4. Hypertension; controlled 5. Hyperlipidemia 6. Hypomagnesemia, hypokalemia 7. Elevated d-dimer: CTA negative for PE Recommendations Ongoing antibiotic therapy Recheck Mg- replace as warranted Supportive care Follow up with Primary mail carrier, Dr. Santacruz upon discharge LENO KING MD 04/01/19 1032: CARDIAC CONSULT ASSESSMENT/PLAN Assessment/Plan Patient seen and examined on 03/31/19. Dyspnea. Work up as above. Consistent with probable pneumonia. Continue present treatment. The patient is feeling better. Elevated d dimer. CTA is negative for a PE. Controlled HTN. Continue medications. Recent craniotomy for a brain tumor. Pre op CV work up reportedly normal. Hypo mag. Being replaced. Thank you for allowing us to participate in the care of your patient. BRAYAN TERRELL APRN Mar 31, 2019 07:59 LENO KING MD Apr 01, 2019 10:32
[2019-03-31] MEDS: metFORMIN 500 MG TABLET PO SCH ×2 (08:00→11:16)
[2019-03-31] MEDS: BUDESONIDE 0.5 MG/2 ML NEBU NEB SCH ×2 (08:00→21:50)
[2019-03-31] MEDS: INSULIN LISPRO 300 UNITS/3 ML VIAL. SQ SCH ×3 (08:00→17:00)
[2019-03-31] MEDS: cycloSPORINE 0.05% OPTH 1 DROP DROPERETTE OU SCH ×2 (08:10→20:47)
[2019-03-31] MEDS: OXYBUTYNIN CHLORIDE 5 MG TABLET PO SCH ×2 (08:11→20:47)
[2019-03-31] MEDS: PREGABALIN 75 MG CAPSULE PO SCH ×2 (08:11→20:43)
[2019-03-31] MEDS: SUCRALFATE 1 GM/10 ML ORAL.SUSP. PO SCH ×4 (08:11→20:47)
[2019-03-31] MEDS: FERROUS SULFATE 325 MG TABLET. PO SCH (08:12)
[2019-03-31] MEDS: DULoxetine HCL 60 MG CAPSULE.DR PO SCH ×2 (08:12→20:46)
[2019-03-31] MEDS: APIXABAN 5 MG TABLET. PO SCH ×2 (08:13→20:46)
[2019-03-31] MEDS: NYSTATIN TOPICAL POWDER 15GM BOTTLE. TP SCH ×2 (08:13→20:47)
[2019-03-31] MEDS: FLUTICASONE 50MCG/NASAL SPRAY 16GM BOTTLE. NS SCH (08:13)
[2019-03-31] MEDS ORDERED: LACTOBACILLUS RHAMNOSUS GG 1 CAPSULE. PO SCH (09:00)
[2019-03-31] MEDS: NON FORMULARY ITEM (Dasatinib (Sprycel) 100 MG) PO SCH (10:18)
[2019-03-31] MEDS: VANCOMYCIN 1.5 GM in IV NORMAL SALINE 500ML 500 ML IV SCH ×2 (10:22→21:58)
[2019-03-31 10:35] VITALS: BP 111/64
[2019-03-31 12:21] LABS: CALCIUM 8.1 mg/dL (8.5-10.1); CREATININE 0.7 mg/dL (0.6-1.0); GFR 89.7; POTASSIUM 3.3 mmol/L (3.5-5.1)
[2019-03-31] MEDS ORDERED: MELATONIN 3 MG TABLET PO PRN (13:00)
[2019-03-31] MEDS: POTASSIUM CHLORIDE 20 MEQ TABLET.ER. PO SCH ×2 (13:51→20:45)
[2019-03-31] MEDS: oxyCODONE IR 5 MG TABLET PO PRN ×2 (13:51→20:46)
[2019-03-31 14:53] VITALS: BP 122/84
[2019-03-31 18:45] VITALS: BP 125/84
[2019-03-31] MEDS: ATORVASTATIN CALCIUM 20 MG TABLET PO SCH (20:43)
[2019-03-31] MEDS: TOPIRAMATE 25 MG TABLET. PO SCH (20:44)
[2019-03-31] MEDS: METOPROLOL SUCC 24HR ER 50 MG TAB.ER.24H. PO SCH (20:45)
[2019-03-31] MEDS: diphenhydrAMINE HCL 25 MG CAPSULE PO PRN (20:46)
[2019-03-31] MEDS: INSULIN GLARGINE SYRINGE. SQ SCH (20:49)
[2019-03-31] MEDS ORDERED: diphenhydrAMINE HCL 25 MG CAPSULE PO ONE (20:50)
--- NOTE | 2019-03-31 23:46 | PN ---
DATE: 03/31/2019 SUBJECTIVE: The patient is resting, slightly propped up in bed, no apparent distress. Stated that her headaches slightly better. She is afebrile. She did have hypokalemia this morning and we did replenish her potassium. When I saw her this afternoon, her potassium is up to 3.3. When I examined her, she looked well and was clearly in no apparent respiratory distress. She was pale, but cushingoid. There was no jaundice or cyanosis. No lymphadenopathy, no thyromegaly. No jugular venous distention. No limb edema. OBJECTIVE: VITAL SIGNS: Her heart rate was 113, blood pressure was 111/64, temperature was 98.2, respiratory rate was 18 and oxygen saturation was 95%. HEAD, EYES, EARS, NOSE AND THROAT: Normocephalic, atraumatic. NECK: Supple. HEART: Showed normal first and second heart sounds with no gallop or murmur. CHEST: Clear to auscultation. No crepitation or rhonchi. ABDOMEN: Distended, soft, nontender. No guarding or rigidity. No organomegaly. Hernial orifices intact. Bowel sounds normal. NEUROLOGIC: She is awake, alert, oriented. All cranial nerves intact. She continued to have episodes of expressive aphasia and right-sided hemiplegia. Her intake was incompletely recorded, output was 1100. LABORATORY DATA: Her lab work this morning showed a white cell count of 11,300, hemoglobin 9, hematocrit 29, MCV 99 and platelet count 403,000. Her chemistry showed a serum sodium 147, potassium 3.3, chloride 110, bicarbonate 21, anion gap of 16, BUN 12, creatinine 0.7. Estimated GFR was 89 mL per minute. Her glucose 185, calcium was 8.1. ASSESSMENT: 1. Healthcare-associated pneumonia for which she continues to be on IV vancomycin as well as ceftriaxone. 2. The patient has multiple other medical problems including: a. Hyperlipidemia. b. Hypertension. c. Type 2 diabetes mellitus. d. Diabetic peripheral neuropathy. 3. She has history of pulmonary embolism, for which she is on apixaban. 4. Obstructive sleep apnea. She has also leukemia and brain tumor, probably glioblastoma multiforme. PLAN: My plan is to continue with all her medication. Continue with IV antibiotic. I will start her also on oxycodone as the CT scan showed no evidence of any midline shift, there is increased intracranial pressure and also melatonin for insomnia. JD GUNDERSON MD DR: INGRIS/felipe JOB#: [id number] / [id number]
[2019-04-01] MEDS: ALBUTEROL SULFATE 2.5 MG/3 ML NEBU. NEB SCH ×2 (05:24→09:31)
[2019-04-01 05:31] VITALS: BP 116/79
[2019-04-01 06:49] LABS: CALCIUM 7.9 mg/dL (8.5-10.1); CREATININE 0.5 mg/dL (0.6-1.0); GFR 132.2; POTASSIUM 3.8 mmol/L (3.5-5.1)
[2019-04-01] MEDS: INSULIN LISPRO 300 UNITS/3 ML VIAL. SQ SCH ×2 (08:00→11:55)
[2019-04-01] MEDS: metFORMIN 500 MG TABLET PO SCH (08:00)
[2019-04-01] MEDS: SUCRALFATE 1 GM/10 ML ORAL.SUSP. PO SCH ×2 (08:38→11:11)
[2019-04-01] MEDS: POTASSIUM CHLORIDE 20 MEQ TABLET.ER. PO SCH (08:39)
[2019-04-01] MEDS: cycloSPORINE 0.05% OPTH 1 DROP DROPERETTE OU SCH (08:39)
[2019-04-01] MEDS: PREGABALIN 75 MG CAPSULE PO SCH (08:39)
[2019-04-01] MEDS: DULoxetine HCL 60 MG CAPSULE.DR PO SCH (08:39)
[2019-04-01] MEDS: OXYBUTYNIN CHLORIDE 5 MG TABLET PO SCH (08:40)
[2019-04-01] MEDS: FERROUS SULFATE 325 MG TABLET. PO SCH (08:40)
[2019-04-01] MEDS: APIXABAN 5 MG TABLET. PO SCH (08:40)
[2019-04-01] MEDS: NYSTATIN TOPICAL POWDER 15GM BOTTLE. TP SCH (08:46)
[2019-04-01] MEDS: NON FORMULARY ITEM (Dasatinib (Sprycel) 100 MG) PO SCH (08:46)
[2019-04-01] MEDS: oxyCODONE IR 5 MG TABLET PO PRN ×2 (08:55→13:35)
[2019-04-01] MEDS: BUDESONIDE 0.5 MG/2 ML NEBU NEB SCH (08:55)
[2019-04-01] MEDS: FLUTICASONE 50MCG/NASAL SPRAY 16GM BOTTLE. NS SCH (09:12)
[2019-04-01 10:56] VITALS: BP 117/76
[2019-04-01] MEDS: VANCOMYCIN 1.5 GM in IV NORMAL SALINE 500ML 500 ML IV SCH (11:11)
[2019-04-01] MEDS ORDERED: AMOX1TAB61 PO (13:24)
--- NOTE | 2019-04-01 21:32 | DS ---
DATE OF DISCHARGE: 04/01/2019 HOSPITAL COURSE: The patient is a 48-year-old female patient who came to the Emergency Room with a complaint of shortness of breath, wheezing and generalized weakness. She has a history of multiple medical issues including recently diagnosed brain tumor that was surgically resected at [facility] after which she went to [facility]. She was also discharged only about a week ago. She was also diagnosed with leukemia for which she is on chemotherapy and follows with Dr. Nancy Richard. She apparently was evaluated in the Emergency Room of [facility]. Her EKG showed that she was in sinus tachycardia. Her chest x-ray showed that she has patchy airspace disease in the right upper and middle lobe. No pleural effusion and as her D-dimer was high, she has a CT angio of the chest, which showed multifocal opacities throughout the right greater than left lung which could be multifocal pneumonia. The patient was admitted with diagnosis of healthcare-associated pneumonia. She was started on vancomycin and ceftriaxone and she did actually very well. She is now afebrile, maintaining her oxygen saturation at 94% on room air. Her white cell count is normal and all her cultures are so far negative and therefore, a decision was made to discharge her home to continue an oral antibiotic and to follow with her oncologist and neurosurgeon. PHYSICAL EXAMINATION: GENERAL: When I saw her this afternoon, she was resting slightly propped up in bed, in no apparent distress. There was no pallor, jaundice, cyanosis or thyromegaly. No jugular venous distention. No lower limb edema. She obviously continued to be extremely cushingoid secondary to high dose steroids she was on before. VITAL SIGNS: Her heart rate was 108, blood pressure was 117/76, temperature was 98.5, respiratory rate 20, and oxygen saturation was 94% on room air. HEAD, EYES, EARS, NOSE AND THROAT: Showed normocephalic, atraumatic. NECK: Supple. HEART: Showed normal first and second heart sounds. No gallop or murmur. CHEST: Shows central trachea, equal bilateral expansion, air entry, vesicular breath sounds. She actually has crepitation, more so on the right than left. I could not appreciate any rhonchi. ABDOMEN: Distended, soft, nontender. NEUROLOGIC: She is awake, alert, responding appropriately. All cranial nerves intact. She has right-sided hemiplegia, occasional episode of expressive aphasia. LABORATORY DATA: Her white cell count was 11,300, hemoglobin 9, hematocrit 29, MCV 99 and platelet count of 103,000. Her serum sodium was 145, potassium 3.8, chloride 112, bicarbonate 25, anion gap of 8, BUN 12, creatinine 0.5, estimated GFR was 132 per minute. Her glucose 124, calcium was 7.9. Her prothrombin time, INR and aPTT were normal. D-dimer was slightly elevated. Urinalysis is essentially unremarkable. Toxic screen showed vancomycin level high at ____. Her influenza A and B were negative. DISCHARGE MEDICATIONS: She was discharged home to continue on Augmentin 875 mg twice a day with food for 7 more days. She should continue on all her other medications including her Tylenol 650 mg every 4 hours as needed, albuterol sulfate 2 puffs every 4-6 hours, apixaban 5 mg twice a day, clonazepam 0.5 mg daily and as needed, cyclosporine for Restasis 1 drop to both eyes twice a day, dasatinib for Sprycel 100 mg once a day, diphenhydramine 25 mg every 12 hours as needed, duloxetine for Cymbalta 60 mg twice a day, ferrous sulfate 325 mg once a day, fluticasone propionate for Wixela 1 inhalation twice a day, Flonase 2 sprays to each nostril once a day. She is on detemir insulin 35 units at bedtime, magnesium oxide she takes 800 mg twice a day, metformin 1000 mg twice a day, metoprolol succinate 50 mg at bedtime, nystatin powder apply topically twice a day, oxybutynin chloride 10 mg once a day, polyethylene glycol 17 grams daily, pregabalin for Lyrica 150 mg 3 times a day, prochlorperazine 10 mg every 12 hours, Crestor 20 mg at bedtime, sucralfate 1 g in 10 mL suspension 4 times a day, and topiramate 50 mg at bedtime. FINAL DISCHARGE DIAGNOSES: 1. Healthcare-associated pneumonia. 2. Acute hypoxic respiratory failure. 3. Recent brain tumor that was partially resected. 4. Leukemia. 5. Type 2 diabetes mellitus. 6. Hypertension. 7. Hyperlipidemia. 8. Morbid obesity, obstructive sleep apnea. 9. Bronchial disease/chronic obstructive pulmonary disease. JD GUNDERSON MD DR: Praveen JOB#: [id number] / [id number]
== END 2019-04-01 14:58 | disposition home health service (06) | DRG 177 ==
LOC: ER 21:33 → 1 SOUTH 23:45
PROVIDERS: ADMIT Hospitalist; ATTEND Hospitalist
DX: J15.6 Pneumonia due to other Gram-negative bacteria (principal); J96.01 Acute respiratory failure with hypoxia; J44.0 Chronic obstructive pulmonary disease with (acute) lower respiratory infection; E46 Unspecified protein-calorie malnutrition; C95.90 Leukemia, unspecified not having achieved remission; I50.30 Unspecified diastolic (congestive) heart failure; Z68.41 Body mass index [BMI] 40.0-44.9, adult; J15.9 Unspecified bacterial pneumonia; Y95 Nosocomial condition; I11.0 Hypertensive heart disease with heart failure; E78.5 Hyperlipidemia, unspecified; E11.42 Type 2 diabetes mellitus with diabetic polyneuropathy; E78.00 Pure hypercholesterolemia, unspecified; F32.9 Major depressive disorder, single episode, unspecified; F41.9 Anxiety disorder, unspecified; K21.9 Gastro-esophageal reflux disease without esophagitis; K58.9 Irritable bowel syndrome, unspecified; Z90.710 Acquired absence of both cervix and uterus; Z90.49 Acquired absence of other specified parts of digestive tract; Z87.891 Personal history of nicotine dependence; Z87.442 Personal history of urinary calculi; Z86.73 Personal history of transient ischemic attack (TIA), and cerebral infarction without residual deficits; Z86.711 Personal history of pulmonary embolism; Z83.3 Family history of diabetes mellitus; Z82.49 Family history of ischemic heart disease and other diseases of the circulatory system; Z80.8 Family history of malignant neoplasm of other organs or systems; Z88.5 Allergy status to narcotic agent; E66.01 Morbid (severe) obesity due to excess calories; D64.9 Anemia, unspecified; I25.10 Atherosclerotic heart disease of native coronary artery without angina pectoris; G47.33 Obstructive sleep apnea (adult) (pediatric); E87.6 Hypokalemia; E83.42 Hypomagnesemia
CPT/HCPCS: 36415; 51702; 70450; 71045; 71275; 80048; 80053; 80076; 80202; 80307; 81001; 82550; 82947; 83615; 83690; 83735; 83880; 84443; 84484; 85007; 85025; 85027; 85379; 85610; 85730; 87040; 87804; 93005; 94640; 96365; 96368; 96375; J0696; J1815; J2930; J3370; J3475; J7040; J7120; J7613; J7620; J7626; Q0163; Q9967; 97530; 99285-25

== ENCOUNTER 2020-06-08 01:07 | Emergency (ER) | payer OTHER ==
[~2020-06-08] VITALS: Ht 165.1 cm; Wt 127.0 kg
[~2020-06-08 01:07] MED LIST changes: +ACET500T68 PO; +AMOX1TAB61 PO; +APIX5TAB3 PO; -ASPI-612 PO; +ASPI-889 PO; -CETI10TA24 PO; +CETI10TA74 PO; +CLON0.5T4 PO; +CRESTOR20 MG PO; +CYCL1DRO EACHEYE; +DASA100T PO; +DIPH25TA26 PO; +FERR325T14 PO; +INSU100V13 SQ; -ISOS30TA4 PO; +ISOS30TA68 PO; +LORA0.5T21 PO; -LORA0.5T96 PO; +MAGN400T5 PO; +METF1000 PO; +METO50TA4 PO; +NYST15PO9 TP; +OXYB10TA7 PO; +POLY17PO5 PO; +PROC10TA2 PO; +TOPI50TA8 PO
--- NOTE | 2020-06-08 01:32 | PHYS DOC ---
Past History Past Medical History: Anxiety, CAD, Cancer, CVA, Depression, Diabetes, High Cholesterol, Hypertension, Kidney Stones, Ovarian Cyst, Pneumonia, Other Additional Past Medical Histor: pulmonary embolism, tachycardia, NERVE DAMAGE, drop foot on R Past Surgical History: Appendectomy, Cholecystectomy, , Hysterectomy, Other Additional Past Surgical Histo: OVARIAN CYSTS, BACK SX, brain tumor removed Smoking: Quit Less Than 1 Year Alcohol Use: None Drug Use: None General Adult EDM: Chief Complaint: ABDOMINAL PAIN HPI: HPI: 50-year-old female presents with epigastric and right upper quadrant abdominal pain. She states that the pain started around 9 PM. Clear reason. She describes a sharp cramping sensation. It is moderate to severe in intensity. It comes and goes in waves. She is very nauseous but has not vomited. She denies fever or chills. She is allergic to morphine but has tolerated Dilaudid and fentanyl in the past. Review of Systems: Review of Systems: Constitutional: Denies fever or chills Eyes: Denies change in visual acuity HENT: Denies nasal congestion or sore throat Respiratory: Denies cough or shortness of breath Cardiovascular: Denies chest pain or edema GI: Epigastric abdominal pain, nausea. Denies vomiting, bloody stools or diarrhea : Denies dysuria Musculoskeletal: Denies back pain or joint pain Integument: Denies rash Neurologic: Denies headache, focal weakness or sensory changes Endocrine: Denies polyuria or polydipsia Lymphatic: Denies swollen glands Psychiatric: Denies depression or anxiety Allergies: Allergies: Allergies Coded Allergies Type Severity Reaction Last Updated Verified azithromycin Allergy Intermediate HIVES 06/08/20 Yes codeine Allergy Intermediate 06/08/20 Yes morphine Allergy Intermediate Palpitations 06/08/20 Yes Physical Exam: PE: Constitutional: Well developed, well nourished, morbidly obese, mild acute distress, non-toxic appearance. [] HENT: Normocephalic, atraumatic, bilateral external ears normal, oropharynx moist, no oral exudates, nose normal. [] Eyes: PERRLA, EOMI, conjunctiva normal, no discharge. [] Neck: Normal range of motion, no tenderness, supple, no stridor. [] Cardiovascular: Heart rate regular rhythm, no murmur [] Lungs & Thorax: Bilateral breath sounds clear to auscultation [] Abdomen: Bowel sounds normal, soft, epigastric and right upper quadrant tenderness. [] Skin: Warm, dry, no erythema, no rash. [] Back: No tenderness, no CVA tenderness. [] Extremities: No tenderness, no cyanosis, no clubbing, ROM intact, no edema. [] Neurologic: Alert and oriented X 3, normal motor function, normal sensory function, no focal deficits noted. [] Psychologic: Affect normal, judgement normal, mood anxious. [] Current Patient Data: Vital Signs: Vital Signs Date Time Temp Pulse Resp B/P (MAP) Pulse Ox O2 Delivery O2 Flow Rate FiO2 06/08/20 01:14 98.4 92 18 142/96 (111) 97 Room Air EKG: EKG: [] Radiology/Procedures: Radiology/Procedures: [] Impressions: CT abdomen pelvis with contrast dated 06/08/2020. No comparison available. Clinical data indication: Epigastric pain. TECHNIQUE: Contiguous axial imaging the abdomen pelvis performed after the administration of 75 cc Omnipaque 300. One or more of the following individualized dose reduction techniques were utilized for this examination: 1. Automated exposure control 2. Adjustment of the mA and/or kV according to patient size 3. Use of iterative reconstruction technique. FINDINGS: Limited images of lung bases show linear scar or atelectasis in the right lower lobe. Heart size is upper limits of normal. No pleural or pericardial effusion. Liver is of diffuse low density compatible with fatty infiltration. No apparent mass. Trace amount of perihepatic ascites. The portal vein is patent. No biliary ductal dilatation. Gallbladder is surgically absent. Spleen is normal in size. Pancreas, adrenal glands and kidneys are unremarkable. No hydronephrosis. Well-circumscribed low-density focus at the lower pole left kidney 4 cm and Hounsfield value of 7, consistent with cyst. There are some mildly dilated fluid-filled loops of proximal small bowel with small amount of free fluid in the mesentery. No wall thickening. No definite transition point. There are more distal loops of small bowel that are relatively collapsed. Appendix not clearly identified. Colon is unremarkable. No adenopathy or ascites. Abdominal aorta normal in caliber. The pelvis show nondistended urinary bladder. The uterus is surgically absent. No free fluid or pelvic lymphadenopathy. Bone windows show no acute finding. Multilevel spondylosis. IMPRESSION: 1. There are dilated fluid-filled loops of proximal small bowel with relative distal small bowel collapse and a small amount of fluid in the mesentery. This could be related to early small bowel obstruction or partial obstruction. Infectious or inflammatory enteritis is another consideration. Correlate clinically. 2. Fatty infiltration of the liver. 3. Otherwise no acute findings. Electronically signed by: Bhavesh Bertrand MD (06/08/2020 2:47 AM) [facility] DICTATED AND SIGNED BY: BHAVESH BERTRAND MD DATE: 06/08/20240 CC: ALEJANDRO ESTRADA DO; NIYAH SALEH APRN ~MTH0 0 Heart Score: C/O Chest Pain: N/A Risk Factors: Risk Factors: DM, Current or recent (<one month) smoker, HTN, HLP, family history of CAD, obesity. Risk Scores: Score 0 - 3: 2.5% MACE over next 6 weeks - Discharge Home Score 4 - 6: 20.3% MACE over next 6 weeks - Admit for Clinical Observation Score 7 - 10: 72.7% MACE over next 6 weeks - Early Invasive Strategies Course & Med Decision Making: Course & Med Decision Making Pertinent Labs and Imaging studies reviewed. (See chart for details) The patient's labs are unremarkable. Lactic acid is within normal. I have given her Zofran and Dilaudid for her pain. CT scan shows possible small bowel obstruction. The patient is willing to be transferred to [facility]. I spoke with the surgeon, Dr. Paul and he has recommended transfer to [place]. I spoke with the hospitalist, Dr. Rodriguez and he has accepted the patient for transfer and admission. 37 minutes critical care time was spent on this patient exclusive of other yudy lable procedures. [] Dragon Disclaimer: Dragon Disclaimer: This electronic medical record was generated, in whole or in part, using a voice recognition dictation system. Departure Departure: Impression: Primary Impression: Small bowel obstruction Disposition: 02 SHORT TERM HOSPITAL Admitting Physician: Huber Rodriguez Condition: GUARDED Referrals: NIYAH SALEH APRN (PCP) ALEJANDRO ESTRADA DO Jun 08, 2020 01:32
[2020-06-08] MEDS ORDERED: CONTRAST GIVEN. MC PRN (01:45)
[2020-06-08 01:48] LABS: BASO # 0.1 x10^3/uL (0.0-0.2); BASO % 1 % (0-3); EOS % 0 % (0-3); HEMATOCRIT 42.1 % (36.0-47.0); HEMOGLOBIN 13.9 g/dL (12.0-15.5); LYMPH # 1.8 x10^3/uL (1.0-4.8); LYMPH % 16 % (24-48); MEAN CORPUSCULAR HEMOGLOBIN 32 pg (25-35); MEAN CORPUSCULAR HGB CONC 33 g/dL (31-37); MEAN CORPUSCULAR VOLUME 95 fL (79-100); MONO % 9 % (0-9); NEUT # 8.3 x10^3uL (1.8-7.7); NEUT % 75 % (31-73); PLATELET COUNT 238 x10^3/uL (140-400); RED BLOOD COUNT 4.42 x10^6/uL (3.50-5.40); RED CELL DISTRIBUTION WIDTH 15.1 % (11.5-14.5); WHITE BLOOD COUNT 11.2 x10^3/uL (4.0-11.0)
[2020-06-08 01:58] LABS: CALCIUM 8.9 mg/dL (8.5-10.1); CREATININE 0.8 mg/dL (0.6-1.0); GFR 76.2; POTASSIUM 3.7 mmol/L (3.5-5.1)
[2020-06-08] MEDS ORDERED: HYDROmorphone PF 1 MG/ML DISP.SYRIN IVP ONE ×2 (02:00→03:30)
[2020-06-08] MEDS ORDERED: ONDANSETRON PF 4 MG/2 ML VIAL. IVP ONE (02:00)
[2020-06-08] MEDS ORDERED: IOHEXOL 300 MG/ML 75 ML VIAL. IV ONE (02:00)
[2020-06-08 02:03] LABS: ALBUMIN 3.3 g/dL (3.4-5.0); TOTAL BILIRUBIN 0.5 mg/dL (0.2-1.0); TOTAL PROTEIN 6.6 g/dL (6.4-8.2)
[2020-06-08 02:40] VITALS: BP 140/93
--- NOTE | 2020-06-08 02:49 | RAD ---
CT abdomen pelvis with contrast dated 06/08/2020. No comparison available. Clinical data indication: Epigastric pain. TECHNIQUE: Contiguous axial imaging the abdomen pelvis performed after the administration of 75 cc Omnipaque 300 . One or more of the following individualized dose reduction techniques were utilized for this examinat ion: 1. Automated exposure control 2. Adjustment of the mA and/or kV according to patient size 3. Use of iterative reconstruction technique. FINDINGS: Limited images of lung bases show linear scar or atelectasis in the right lower lobe. Heart size is u pper limits of normal. No pleural or pericardial effusion. Liver is of diffuse low density compatible with fatty infiltration. No apparent mass. Trace amount of perihepatic ascites. The portal vein is patent. No biliary ductal dilatation. Gallbladder is surgica lly absent. Spleen is normal in size. Pancreas, adrenal glands and kidneys are unremarkable. No hydronephrosis. W ell-circumscribed low-density focus at the lower pole left kidney 4 cm and Hounsfield value of 7, con sistent with cyst. There are some mildly dilated fluid-filled loops of proximal small bowel with small amount of free fl uid in the mesentery. No wall thickening. No definite transition point. There are more distal loops o f small bowel that are relatively collapsed. Appendix not clearly identified. Colon is unremarkable. No adenopathy or ascites. Abdominal aorta normal in caliber. The pelvis show nondistended urinary bladder. The uterus is surgically absent. No free fluid or pelvi c lymphadenopathy. Bone windows show no acute finding. Multilevel spondylosis. IMPRESSION: 1. There are dilated fluid-filled loops of proximal small bowel with relative distal small bowel luis apse and a small amount of fluid in the mesentery. This could be related to early small bowel obstruc tion or partial obstruction. Infectious or inflammatory enteritis is another consideration. Correlate clinically. 2. Fatty infiltration of the liver. 3. Otherwise no acute findings. Electronically signed by: Bhavesh Bertrand MD (06/08/2020 2:47 AM) [facility]
== END 2020-06-08 04:18 | disposition short-term general hospital (02) ==
LOC: ER 01:07
DX: K56.609 Unspecified intestinal obstruction, unspecified as to partial versus complete obstruction (principal); F41.9 Anxiety disorder, unspecified; I25.10 Atherosclerotic heart disease of native coronary artery without angina pectoris; E11.9 Type 2 diabetes mellitus without complications; E78.00 Pure hypercholesterolemia, unspecified; I10 Essential (primary) hypertension; Z87.442 Personal history of urinary calculi; Z86.73 Personal history of transient ischemic attack (TIA), and cerebral infarction without residual deficits; Z90.49 Acquired absence of other specified parts of digestive tract; Z90.89 Acquired absence of other organs; Z98.890 Other specified postprocedural states; Z90.710 Acquired absence of both cervix and uterus; Z87.891 Personal history of nicotine dependence; Z88.1 Allergy status to other antibiotic agents; Z88.5 Allergy status to narcotic agent
CPT/HCPCS: 36415; 74177; 80053; 83605; 83690; 85025; 96374; 96375; 96376; 99285; J1170; J2405; Q9967

== ENCOUNTER 2020-08-12 23:53 | Emergency (ER) | payer OTHER ==
[~2020-08-12] VITALS: Ht 165.1 cm; Wt 146.8 kg
--- NOTE | 2020-08-12 23:56 | PHYS DOC ---
Past History Past Medical History: Anxiety, CAD, Cancer, CVA, Depression, Diabetes, High Cholesterol, Hypertension, Kidney Stones, Ovarian Cyst, Pneumonia, Other Additional Past Medical Histor: pulmonary embolism, tachycardia, NERVE DAMAGE, drop foot on R Past Surgical History: Appendectomy, Cholecystectomy, , Hysterectomy, Other Additional Past Surgical Histo: OVARIAN CYSTS, BACK SX, brain tumor removed Smoking: Quit Less Than 1 Year Alcohol Use: None Drug Use: None General Adult HPI: HPI: ".. I ve been hurting the last three days.. down here.. on the right.. " Patient is a 50 year old female who presents with above hx and complaints of Rt.lower abdomen pain x 3 days. Patient denies any change in bowel habits. No history of bad food intake. Pain is localized to the right lower quadrant. Patient does have a past history of kidney stones but has been a number of years. Patient has significant medical history of leukemia, diabetes, hypertension, hyperlipidemia, morbid obesity, obstructive sleep apnea, bronchial asthma and COPD, brain tumor, ovarian cysts, C-sections x3, hysterectomy, pneumonia, bilateral from ectomy, appendectomy, cholecystectomy, and back surgeries. Patient just completed a course of radiation on her brain for brain tumor which was resected initially at [facility]. Radiation occurs at [facility]. Patient also follows for chemotherapy at under Dr. Richard. Patient states she just completed a course of steroids. Not currently on antibiotics. Pt. follows with Dr. Krishnamurthy as primary.. Review of Systems: Review of Systems: Constitutional: Denies fever or chills Eyes: Denies change in visual acuity HENT: Denies nasal congestion or sore throat Respiratory: Denies cough or shortness of breath Cardiovascular: Denies chest pain or edema GI: Complains of right lower abdominal pain, nausea,. Denies vomiting, bloody stools or diarrhea : Denies dysuria Musculoskeletal: Denies back pain or joint pain Integument: Denies rash Neurologic: Denies headache, focal weakness or sensory changes Endocrine: Denies polyuria or polydipsia Lymphatic: Denies swollen glands Psychiatric: Denies depression or anxiety Family History: Family History: She has 2 brothers and 3 sisters all have hypertension and diabetes Father age 60 due to [place]. Mother has diabetes ovarian liver and thyroid cancers. Current Medications: Current Meds: See nursing for home meds Allergies: Allergies: Allergies Coded Allergies Type Severity Reaction Last Updated Verified azithromycin Allergy Intermediate HIVES 06/08/20 Yes codeine Allergy Intermediate 06/08/20 Yes morphine Allergy Intermediate Palpitations 06/08/20 Yes Physical Exam: PE: Constitutional: Moderate acute distress, non-toxic appearance. [] HENT: Normocephalic, , bilateral external ears normal, oropharynx moist, no oral exudates, nose normal. Hair loss. Brain surgery scar on left Eyes: PERRLA, EOMI, conjunctiva normal, no discharge. Periorbital eyelids were swollen Neck: Normal range of motion, no tenderness, supple, no stridor. More than 17 inches circumference Cardiovascular: Tachycardia heart rate regular rhythm, no murmur [] Lungs & Thorax: Bilateral breath sounds equal apex basilar crackles on a uscultation [] Abdomen: Bowel sounds normal, soft, right lower tenderness, no masses, no pulsatile masses. Morbidly obese. Multiple surgery scars Skin: Warm, dry, no erythema, no rash. [] Back: No tenderness, no CVA tenderness. Surgery scar Extremities: No tenderness, no cyanosis, no clubbing, ROM intact, bilateral leg edema. No appreciable cording Neurologic: Alert and oriented X 3, moves all extremities on request decreased plantar sensation, no focal deficits noted. [] Psychologic: Affect anxious, judgement normal, mood depressed EKG: EKG: My interpretation EKG shows a sinus tachycardia 101 bpm. There is some nonspecific changes anterior lateral leads. But no findings of acute STEMI with contralateral changes. EKG was completed at 00 06 minutes [] Radiology/Procedures: Radiology/Procedures: [[address] [address] IMAGING REPORT Signed PATIENT: OWEN HERNANDEZ LACCOUNT: [id number] : 1970 LOCATION: ER AGE: 50 SEX: F EXAM STATUS: REG ER ORD. PHYSICIAN: SIMI WATTS MD REASON: OMNI 350,100ML IV. OMNI 240,30ML PO.RT LOWER ABD PAIN PROCEDURE: CT ANGIO CHEST W ABD PEL W/ CTA CHEST_ABDOMEN_AND PELVIS Clinical Indication: Dyspnea, abdominal pain, history of leukemia COMPARISON: 06/08/2020 TECHNIQUE: Multiple contiguous axial images were obtained throughout the chest, abdomen, and pelvis with the use of IV contrast. Axial images were reformatted into coronal and sagittal planes. MIP reconstructions were obtained. 100 mL Omnipaque 350 was administered. One or more of the following dose reduction techniques were utilized: Automated exposure control (AEC), Adjustment of mA and/or kV according to patient size, Use of iterative reconstruction technique such as ASiR, CT scan done according to ALARA and image gently/image wisely. Findings: The thyroid is symmetric. There is no axillary, mediastinal, or hilar adenopathy. No evidence of pulmonary thromboembolic disease. The thoracic aorta diameter is normal. The cardiac size is normal. There is no pericardial effusion. The central airways are patent. No pulmonary mass or consolidation. Bibasilar dependent and subsegmental atelectasis. No pleural effusion is observed. There is no pneumothorax. The liver, spleen, pancreas, and adrenal glands are unremarkable. Cholecystectomy. No hydronephrosis or opaque urinary calculi. There is no significant mesenteric or retroperitoneal adenopathy identified. There is no evidence of free intraperitoneal fluid or pneumoperitoneum. Visualized portions of the bowel are grossly unremarkable. Appendix is not seen. Bladder is unremarkable. Hysterectomy. There is no significant pelvic ascites. No significant iliac or inguinal adenopathy is identified. No acute osseous abnormality. Scattered abdominal wall subcutaneous stranding. IMPRESSION: 1. No evidence of pulmonary thrombolic disease. 2. No pulmonary mass or consolidation. 3. No acute intra-abdominal process. Electronically signed by: Janel Davidson MD (08/13/2020 4:29 AM) [facility] DICTATED AND SIGNED BY: JANEL DAVIDSON MD DATE: 08/13/20422 CC: SIMI WATTS MD; NON,STAFF ~[facility] 0 ][address] [address] IMAGING REPORT Signed PATIENT: OWEN HERNANDEZ: [id number] : 1970 LOCATION: ER AGE: 50 SEX: F EXAM STATUS: PRE ER ORD. PHYSICIAN: SIMI WATTS MD REASON: pain PROCEDURE: PORTABLE CHEST 1V XR CHEST 1V INDICATION: pain COMPARISON STUDY: 03/29/2019. FINDINGS: Lungs: Low lung volume. No consolidation. Pleura: No pleural effusion or pneumothorax. Heart and Mediastinum: Stable cardiomediastinal silhouette and great vessels. IMPRESSION: No consolidation. Electronically signed by: Janel Davidson MD (08/13/2020 12:35 AM) [facility] DICTATED AND SIGNED BY: JANEL DAVIDSON MD DATE: 08/13/2028 CC: ANA LUISA KRISHNAMURTHY DO; SIMI WATTS MD ~MTH0 0 Heart Score: C/O Chest Pain: N/A Risk Factors: Risk Factors: DM, Current or recent (<one month) smoker, HTN, HLP, family history of CAD, obesity. Risk Scores: Score 0 - 3: 2.5% MACE over next 6 weeks - Discharge Home Score 4 - 6: 20.3% MACE over next 6 weeks - Admit for Clinical Observation Score 7 - 10: 72.7% MACE over next 6 weeks - Early Invasive Strategies Course & Med Decision Making: Course & Med Decision Making Pertinent Labs and Imaging studies reviewed. (See chart for details) Patient take Tylenol and ibuprofen for discomfort. Patient follow-up with her cancer clinic. Keep follow-up with [facility]. Return if any concerns. Have primary review ED work-up. No acute surgical findings were noted on CT contrast of chest or abdomen. Clear fluid diet for the next 2 days. Impression: 1. Right lower abdomen pain 2. Constipation 3. Mild anemia 11.8 hemoglobin 4. Mild hypernatremia 149 5. Mild elevation LDH 876 6. Hx. Brain Cancer- s/p surgery, current radiation and chemo. tx [] Dragon Disclaimer: Dragon Disclaimer: This electronic medical record was generated, in whole or in part, using a voice recognition dictation system. Departure Departure: Referrals: ANA LUISA KRISHNAMURTHY DO (PCP) Mary Disclaimer This chart was dictated in whole or in part using Voice Recognition software in a busy, high-work load, and often noisy Emergency Department environment. It may contain unintended and wholly unrecognized errors or omissions. Dragon Disclaimer This chart was dictated in whole or in part using Voice Recognition software in a busy, high-work load, and often noisy Emergency Department environment. It may contain unintended and wholly unrecognized errors or omissions. SIMI WATTS MD Aug 12, 2020 23:56
--- NOTE | 2020-08-13 00:37 | RAD ---
XR CHEST 1V INDICATION: pain COMPARISON STUDY: 03/29/2019. FINDINGS: Lungs: Low lung volume. No consolidation. Pleura: No pleural effusion or pneumothorax. Heart and Mediastinum: Stable cardiomediastinal silhouette and great vessels. IMPRESSION: No consolidation. Electronically signed by: Kj Davidson MD (08/13/2020 12:35 AM) [facility]
[2020-08-13 01:05] LABS: CLARITY,URINE CLEAR; COLOR,URINE YELLOW; GLUCOSE,URINE NEG (NEG)
[2020-08-13 01:06] LABS: AMMONIUM BIURATE PRESENT /HPF; BACTERIA,URINE 0 /HPF (0-FEW); BILIRUBIN,URINE SMALL (NEG); NITRITE,URINE NEG (NEG); RBC,URINE 0 /HPF (0-2); SQUAMOUS EPITHELIAL CELL,UR FEW /LPF; WBC,URINE 0 /HPF (0-4)
[2020-08-13 01:08] LABS: AMPHETAMINE/METHAMPHETAMINE NEG (NEG); BARBITURATES NEG (NEG); BENZODIAZEPINES NEG (NEG); CANNABINOIDS NEG (NEG); COCAINE NEG (NEG); METHADONE NEG (NEG); OPIATES POS (NEG); PHENCYCLIDINE NEG (NEG)
[2020-08-13] MEDS: FAMOTIDINE 20 MG/2 ML VIAL IVP ONE (01:10)
[2020-08-13] MEDS: KETOROLAC 30 MG/ML VIAL. IVP ONE (01:10)
[2020-08-13] MEDS: IV RINGERS SOLUTION,LACTATED 1,000 ML IV SCH (01:10)
[2020-08-13] MEDS: ONDANSETRON PF 4 MG/2 ML VIAL. IVP ONE (01:11)
[2020-08-13 01:24] LABS: BASO % 1 % (0-3); EOS # 0.1 x10^3/uL (0.0-0.7); EOS % 1 % (0-3); HEMATOCRIT 36.4 % (36.0-47.0); HEMOGLOBIN 11.8 g/dL (12.0-15.5); LYMPH # 1.9 x10^3/uL (1.0-4.8); LYMPH % 28 % (24-48); MEAN CORPUSCULAR HEMOGLOBIN 33 pg (25-35); MEAN CORPUSCULAR HGB CONC 32 g/dL (31-37); MEAN CORPUSCULAR VOLUME 102 fL (79-100); MONO # 0.6 x10^3/uL (0.0-1.1); MONO % 9 % (0-9); NEUT # 4.1 x10^3uL (1.8-7.7); NEUT % 62 % (31-73); PLATELET COUNT 271 x10^3/uL (140-400); RED BLOOD COUNT 3.56 x10^6/uL (3.50-5.40); RED CELL DISTRIBUTION WIDTH 17.3 % (11.5-14.5); WHITE BLOOD COUNT 6.6 x10^3/uL (4.0-11.0)
[2020-08-13] MEDS ORDERED: IOHEXOL 240 MG/ML 50ML VIAL. ONE (01:32)
[2020-08-13 01:35] LABS: ANION GAP 4 (6-14); BLOOD UREA NITROGEN 11 mg/dL (7-20); CALCIUM 8.1 mg/dL (8.5-10.1); CARBON DIOXIDE 34 mmol/L (21-32); CHLORIDE 111 mmol/L (98-107); CREATININE 0.6 mg/dL (0.6-1.0); GFR 106.3; GLUCOSE 111 mg/dL (70-99); POTASSIUM 4.8 mmol/L (3.5-5.1); SODIUM 149 mmol/L (136-145)
[2020-08-13 01:42] LABS: ALBUMIN 2.5 g/dL (3.4-5.0); ALK PHOS 74 U/L (46-116); ALT (SGPT) 45 U/L (14-59); AMYLASE 18 U/L (25-115); AST (SGOT) 61 U/L (15-37); LIPASE 88 U/L (73-393); TOTAL BILIRUBIN 0.7 mg/dL (0.2-1.0); TOTAL PROTEIN 5.6 g/dL (6.4-8.2)
[2020-08-13 01:46] LABS: DIRECT BILIRUBIN < 0.1 mg/dL (0.0-0.2)
[2020-08-13] MEDS ORDERED: HYDROmorphone PF 2 MG/ML VIAL ONE (01:48)
[2020-08-13] MEDS: HYDROmorphone PF 2 MG/ML VIAL IM ONE (01:51)
--- NOTE | 2020-08-13 01:53 | EKG ---
[address] [address] Test Date: 2020-08-13 Test Time: 00:06:55 Pat Name: OWEN HERNANDEZ Department: Room: Gender: F Cullet Trucker: BHAVIN : 1970 Requested By: SIMI WATTS Order Number: [id number] Reading MD: Measurements Intervals Brooks Rate: 101 P: 38 WY: 134 QRS: 25 QRSD: 80 T: 43 QT: 370 QTc: 481 Interpretive Statements SINUS TACHYCARDIA QRS(T) CONTOUR ABNORMALITY CONSISTENT WITH ANTEROLATERAL INFARCT AGE UNDETERMINED CONSISTENT WITH INFERIOR INFARCT PROBABLY OLD ABNORMAL ECG RI6.02 No previous ECG available for comparison
[2020-08-13] MEDS ORDERED: CONTRAST GIVEN. MC PRN (02:00)
[2020-08-13] MEDS ORDERED: IOHEXOL 300 MG/ML 75 ML VIAL. IV ONE (02:30)
--- NOTE | 2020-08-13 04:32 | RAD ---
CTA CHEST_ABDOMEN_AND PELVIS Clinical Indication: Dyspnea, abdominal pain, history of leukemia COMPARISON: 06/08/2020 TECHNIQUE: Multiple contiguous axial images were obtained throughout the chest, abdomen, and pelvis with the use of IV contrast. Axial images were reformatted into coronal and sagittal planes. MIP reconstructions were obtained. 100 mL Omnipaque 350 was administered. One or more of the following dose reduction tanesha hniques were utilized: Automated exposure control (AEC), Adjustment of mA and/or kV according to wade ent size, Use of iterative reconstruction technique such as ASiR, CT scan done according to ALARA and image gently/image wisely. Findings: The thyroid is symmetric. There is no axillary, mediastinal, or hilar adenopathy. No evidence of pulmonary thromboembolic disease. The thoracic aorta diameter is normal. The cardiac s ize is normal. There is no pericardial effusion. The central airways are patent. No pulmonary mass or consolidation. Bibasilar dependent and subsegmental atelectasis. No pleural effu natalio is observed. There is no pneumothorax. The liver, spleen, pancreas, and adrenal glands are unremarkable. Cholecystectomy. No hydronephrosis or opaque urinary calculi. There is no significant mesenteric or retroperitoneal adenopathy identifi ed. There is no evidence of free intraperitoneal fluid or pneumoperitoneum. Visualized portions of the bowel are grossly unremarkable. Appendix is not seen. Bladder is unremarkable. Hysterectomy. There is no significant pelvic ascites. No significant iliac or inguinal adenopathy is identified. No acute osseous abnormality. Scattered abdominal wall subcutaneous stranding. IMPRESSION: 1. No evidence of pulmonary thrombolic disease. 2. No pulmonary mass or consolidation. 3. No acute intra-abdominal process. Electronically signed by: Kj Davidson MD (08/13/2020 4:29 AM) [facility]ITALOsval[facility]
[2020-08-13 05:05] VITALS: BP 106/62
[2020-08-13] MEDS: IOHEXOL 350 MG/ML 100 ML VIAL. IV ONE (05:55)
== END 2020-08-13 05:25 | disposition home or self-care (01) ==
LOC: ER 23:53
DX: K59.00 Constipation, unspecified (principal); E87.0 Hyperosmolality and hypernatremia; Z90.49 Acquired absence of other specified parts of digestive tract; Z88.1 Allergy status to other antibiotic agents; Z88.6 Allergy status to analgesic agent; Z88.5 Allergy status to narcotic agent; Z86.73 Personal history of transient ischemic attack (TIA), and cerebral infarction without residual deficits; Z90.710 Acquired absence of both cervix and uterus; Z87.891 Personal history of nicotine dependence; Z87.442 Personal history of urinary calculi
CPT/HCPCS: 36415; 71045; 71275; 74177; 80048; 80076; 80307; 81001; 82150; 82550; 83605; 83615; 83690; 84484; 85025; 85379; 85610; 85730; 87040; 93005; 96361; 96372; 96374; 96375; 99285; J1170; J1885; J2405; J3490; J7120; Q9967

== ENCOUNTER 2020-12-10 21:07 | Emergency (ER) | payer OTHER ==
[~2020-12-10] VITALS: Ht 165.1 cm; Wt 127.4 kg
[~2020-12-10 21:07] MED LIST changes: -DULO60CA6 PO; +DULO60CA7 PO; +MAGN400T48 PO; -MAGN400T5 PO
[2020-12-10] MEDS ORDERED: DEXAMETHASONE SOD PHOS 10 MG/ML VIAL. IV ONE (21:15)
--- NOTE | 2020-12-10 21:20 | PHYS DOC ---
Past History Past Medical History: Anxiety, CAD, Cancer, CVA, Depression, Diabetes, High Cholesterol, Hypertension, Kidney Stones, Ovarian Cyst, Pneumonia, Other Additional Past Medical Histor: PE, tachycardia, NERVE DAMAGE, drop foot on R, BRAIN TUMOR Past Surgical History: Appendectomy, Cholecystectomy, , Hysterectomy, Other Additional Past Surgical Histo: OVARIAN CYSTS, BACK SX, brain tumor removed Smoking: Quit Less Than 1 Year Alcohol Use: None Drug Use: None Adult General HPI HPI Patient is a 50-year-old female with a past medical history significant for stroke, CAD, insulin-dependent diabetes, hypertension, hyperlipidemia and significant residual deficit from stroke who [facility] for chief complaint of Covid positive, and hypoxia with apparent mild confusion over normal. Per staff, she was diagnosed with Covid yesterday and since then her oxygen requirements have gone up from 2 to 5 L/h to keep her above 90 saturation and is awake and alert but seems a little more confused than usual. Patient denies headache, chest pain, abdominal pain, nausea, vomiting, diarrhea. Review of Systems Review of Systems Review of systems otherwise unremarkable except noted in HPI Allergies Allergies Allergies Coded Allergies Type Severity Reaction Last Updated Verified azithromycin Allergy Intermediate HIVES 08/13/20 Yes codeine Allergy Intermediate 08/13/20 Yes morphine Allergy Intermediate Palpitations 08/13/20 Yes Physical Exam Physical Exam Constitutional: Well developed, well nourished, respiratory distress, appears ill. [] HENT: Normocephalic, atraumatic, bilateral external ears normal, oropharynx dry, no oral exudates, nose normal. [] Eyes: PERRLA, EOMI, conjunctiva normal, no discharge. [] Neck: Normal range of motion, no tenderness, supple, no stridor. [] Cardiovascular:Heart rate regular rhythm, no murmur [] Lungs & Thorax: Bilateral breath sounds clear to auscultation [] Abdomen: soft, no tenderness, no masses, no pulsatile masses. [] Skin: Warm, dry, no erythema, no rash. [] Back: No tenderness, no CVA tenderness. [] Extremities: No tenderness, no cyanosis, no clubbing, ROM intact, no edema. [] Neurologic: Alert and oriented X 3, normal motor function, normal sensory function, no focal deficits noted. [] EKG EKG [] Radiology/Procedures Radiology/Procedures [] Heart Score C/O Chest Pain: No Risk Factors: Risk Factors: DM, Current or recent (<one month) smoker, HTN, HLP, family history of CAD, obesity. Risk Scores: Risk Factors: DM, Current or recent (<one month) smoker, HTN, HLP, family history of CAD, obesity. Course & Med Decision Making Course & Med Decision Making Patient is a 50-year-old female, Covid positive with multiple comorbidities who presents to the emergency department with increased shortness of breath, and inc reased oxygen requirement with mild confusion Vital signs notable for fever, tachycardia, tachypnea and hypoxia on room air. Placed on the monitor with IV access established Tim catheter in place. On 5 L nasal cannula to get oxygen saturations around 95%. Started on IV fluid resuscitation with lactated Ringer's. Laboratory analysis notable for normocytic anemia, and BEL. Urinalysis with urinary tract infection, nitrite positive. CT suggestive of pneumonia. CT of the head with no new findings. Started on antibiotics and cultures obtained. Patient already known Covid positive. Given steroids. Discussed all findings with patient and recommended admission for continued evaluation treatment of her sepsis, secondary to pneumonia and/or UTI. On discharge, patient improved with heart rate in the 90s, map in the 70s, alert and oriented in no acute distress. [facility] with no available beds so transferred to [place]. [facility] Disclaimer Fredo Disclaimer This electronic medical record was generated, in whole or in part, using a voice recognition dictation system. Departure Departure: Impression: Primary Impression: Sepsis Additional Impressions: Lab test positive for detection of COVID-19 virus Pneumonia Hypoxia Urinary tract infection Disposition: 02 [facility] Admitting Physician: Duran Hollins, Other Condition: STABLE Referrals: NON,STAFF (PCP) Problem Qualifiers ЕКАТЕРИНА REILLY MD Dec 10, 2020 21:20
[2020-12-10] MEDS ORDERED: ACETAMINOPHEN 500 MG TABLET PO ONE ×2 (21:33→21:45)
[2020-12-10 21:57] LABS: BASO % 0 % (0-3); EOS % 0 % (0-3); HEMOGLOBIN 8.1 g/dL (12.0-15.5); LYMPH # 1.9 x10^3/uL (1.0-4.8); LYMPH % 39 % (24-48); MEAN CORPUSCULAR HEMOGLOBIN 30 pg (25-35); MEAN CORPUSCULAR HGB CONC 32 g/dL (31-37); MEAN CORPUSCULAR VOLUME 93 fL (79-100); MONO # 0.6 x10^3/uL (0.0-1.1); MONO % 12 % (0-9); NEUT # 2.4 x10^3uL (1.8-7.7); NEUT % 49 % (31-73); PLATELET COUNT 132 x10^3/uL (140-400); RED BLOOD COUNT 2.68 x10^6/uL (3.50-5.40); RED CELL DISTRIBUTION WIDTH 16.3 % (11.5-14.5); WHITE BLOOD COUNT 4.9 x10^3/uL (4.0-11.0)
[2020-12-10] MEDS ORDERED: IV RINGERS SOLUTION,LACTATED 1,000 ML IV ONE (22:00)
[2020-12-10 22:06] LABS: CALCIUM 8.4 mg/dL (8.5-10.1); CREATININE 2.9 mg/dL (0.6-1.0); GFR 17.2
[2020-12-10 22:19] LABS: ALBUMIN 3.2 g/dL (3.4-5.0); ALBUMIN/GLOBULIN RATIO 0.8 (1.0-1.7); MAGNESIUM 2.2 mg/dL (1.8-2.4); TOTAL BILIRUBIN 0.3 mg/dL (0.2-1.0); TOTAL PROTEIN 7.2 g/dL (6.4-8.2)
--- NOTE | 2020-12-10 23:09 | RAD ---
CT Head W/O Contrast: History: Reason: SOB, hypoxia / Spl. Instructions: / History: Comparison: March 30, 2019 Axial images were obtained without contrast. There is prior old left-sided craniotomy. There is mild soft malacia left parietal lobe seen previous ly. There is mild diffuse atrophy. There is no mass effect, extraaxial fluid collections or hydrocephalu s. There is no focal loss of rabago-white matter distinction to suggest acute ischemia, i.e. stroke. Impression: Prior left craniotomy craniectomy. No acute findings. End impression PQRS Compliance Statement: One or more of the following individualized dose reduction techniques were utilized for this examinat ion: 1. Automated exposure control 2. Adjustment of the mA and/or kV according to patient size 3. Use of iterative reconstruction technique Electronically signed by: Darren Grady III, MD (12/10/2020 11:07 PM) [facility]
--- NOTE | 2020-12-10 23:17 | RAD ---
CT chest abdomen and pelvis without contrast: History: Pain status post fall Axial helical images of the chest, abdomen and pelvis were obtained without IV contrast. Comparison: August 13, 2020 CT chest without contrast: This patchy opacities throughout the right lung and in the left lung base. There are few small mediastinal and hilar lymph nodes. There is no hilar lymphadenopathy. Impression: Bilateral pulmonary infiltrates could be secondary to pulmonary contusion or aspiration pneumonia. End Impression CT ABDOMEN and pelvis without IV CONTRAST: Findings: There is a hematoma in the right abdominal wall laterally. Liver: Unremarkable Spleen: Unremarkable Pancreas: Unremarkable Adrenal Glands: Unremarkable Kidneys: Unremarkable Evaluation of stomach and bowel is limited without oral contrast. Evaluation of solid organs is limit ed without IV contrast. There is no mass or lymphadenopathy. There is no free air. There is no free fluid. The bladder is collapsed around a Tim and not well evaluated. Impression: Image, the right abdominal wall. End impression PQRS Compliance Statement: One or more of the following individualized dose reduction techniques were utilized for this examinat ion: 1. Automated exposure control 2. Adjustment of the mA and/or kV according to patient size 3. Use of iterative reconstruction technique Electronically signed by: Darren Grady III, MD (12/10/2020 11:14 PM) [facility]
[2020-12-10] MEDS ORDERED: PROCHLORPERAZINE 10 MG/2 ML VIAL. IV ONE (23:45)
[2020-12-10] MEDS ORDERED: diphenhydrAMINE 50 MG/ML VIAL IVP ONE (23:45)
[2020-12-11] MEDS ORDERED: IV RINGERS SOLUTION,LACTATED 1,000 ML IV ONE ×2 (00:15→02:15)
[2020-12-11 01:30] VITALS: BP 107/57
[2020-12-11 02:26] LABS: BACTERIA,URINE MANY /HPF (0-FEW); BILIRUBIN,URINE NEG (NEG); CLARITY,URINE CLOUDY; COLOR,URINE YELLOW; GLUCOSE,URINE NEG (NEG); NITRITE,URINE POS (NEG); SQUAMOUS EPITHELIAL CELL,UR FEW /LPF; UROBILINOGEN,URINE 0.2 mg/dL (0.2 mg/dL); WBC,URINE >40 /HPF (0-4)
== END 2020-12-11 01:49 | disposition short-term general hospital (02) ==
LOC: ER 21:07
DX: A41.9 Sepsis, unspecified organism (principal); J18.9 Pneumonia, unspecified organism; N39.0 Urinary tract infection, site not specified; R09.02 Hypoxemia; E78.5 Hyperlipidemia, unspecified; Z88.1 Allergy status to other antibiotic agents; Z88.6 Allergy status to analgesic agent; Z90.49 Acquired absence of other specified parts of digestive tract; Z90.710 Acquired absence of both cervix and uterus; Z87.891 Personal history of nicotine dependence; Z86.73 Personal history of transient ischemic attack (TIA), and cerebral infarction without residual deficits
CPT/HCPCS: 36415; 70450; 71250; 74176; 80053; 81001; 82803; 83605; 83735; 83880; 84484; 85025; 87040; 87086; 96361; 96365; 96366; 96375; 99285; J0780; J1100; J1200; J1956; J3010; J7120; 87077; 87186

== ENCOUNTER 2021-01-20 13:05 | Emergency (ER) | payer OTHER ==
[~2021-01-20] VITALS: Ht 165.1 cm; Wt 127.4 kg
[2021-01-20] MEDS ORDERED: IV NORMAL SALINE 1,000ML 1,000 ML IV ONE (13:15)
[2021-01-20] MEDS ORDERED: ONDANSETRON PF 4 MG/2 ML VIAL. IVP ONE (13:15)
--- NOTE | 2021-01-20 13:25 | PHYS DOC ---
Past History Past Medical History: Anxiety, CAD, Cancer, CVA, Depression, Diabetes, High Cholesterol, Hypertension, Kidney Stones, Ovarian Cyst, Pneumonia, Other Additional Past Medical Histor: PE, tachycardia, NERVE DAMAGE, drop foot on R, BRAIN TUMOR, dialysis (ALEJANDRO ESTRADA DO) Past Surgical History: Appendectomy, Cholecystectomy, , Hysterectomy, Other Additional Past Surgical Histo: OVARIAN CYSTS, BACK SX, brain tumor removed (ALEJANDRO ESTRADA DO) Smoking: Quit Less Than 1 Year Alcohol Use: None Drug Use: None (ALEJANDRO ESTRADA DO) General Adult EDM: Chief Complaint: NAUSEA/VOMITING/DIARRHEA HPI: HPI: 50-year-old female presents with nausea, body aches, fatigue. Patient states that she started feeling a little bit better yesterday but feels much worse today. She is nauseated but has denied vomiting. She has been trying to stay hydrated at home but still has a global pressure headache. She had COVID-19 1 month ago. She was also fully vaccinated. She just had her dialysis catheter removed 5 days ago and was feeling well at that time. She does not feel feverish but has not checked her temperature. (ALEJANDRO ESTRADA DO) Review of Systems: Review of Systems: Constitutional: Denies fever or chills. Body aches, fatigue. Eyes: Denies change in visual acuity HENT: Denies nasal congestion or sore throat Respiratory: Denies cough or shortness of breath Cardiovascular: Denies chest pain or edema GI: Nausea. Denies abdominal pain, vomiting, bloody stools or diarrhea : Denies dysuria Musculoskeletal: Denies back pain or joint pain Integument: Denies rash Neurologic: Headache. Denies focal weakness or sensory changes Endocrine: Denies polyuria or polydipsia Lymphatic: Denies swollen glands Psychiatric: Denies depression or anxiety (ALEJANDRO ESTRADA DO) Current Medications: Current Meds: Current Medications Medications (Trade) Dose Ordered Sig/Naomy Start Time Stop Time Status Last Admin Dose Admin Ondansetron HCl (Zofran) 4 mg 1X ONCE 01/20/21 13:15 01/20/21 13:18 DC Sodium Chloride 1,000 ml @ 1,000 mls/hr 1X ONCE 01/20/21 13:15 01/20/21 14:14 (ALEJANDRO ESTRADA DO) Allergies: Allergies: Allergies Coded Allergies Type Severity Reaction Last Updated Verified azithromycin Allergy Intermediate HIVES 12/10/20 Yes codeine Allergy Intermediate 12/10/20 Yes morphine Allergy Intermediate Palpitations 12/10/20 Yes (ALEJANDRO ESTRADA DO) Physical Exam: PE: Constitutional: Well developed, well nourished, morbidly obese, no acute distress, non-toxic appearance. [] HENT: Normocephalic, atraumatic, bilateral external ears normal, oropharynx moist, no oral exudates, nose normal. [] Eyes: PERRLA, EOMI, conjunctiva normal, no discharge. [] Neck: Normal range of motion, no tenderness, supple, no stridor. [] Cardiovascular: Heart rate regular rhythm, no murmur [] Lungs & Thorax: Bilateral breath sounds clear to auscultation [] Abdomen: Bowel sounds normal, soft, no tenderness, no masses, no pulsatile masses. [] Skin: Warm, dry, no erythema, no rash. [] Back: No tenderness, no CVA tenderness. [] Extremities: No tenderness, no cyanosis, no clubbing, ROM intact, no edema. [] Neurologic: Alert and oriented X 3, normal motor function, normal sensory function, no focal deficits noted. [] Psychologic: Affect normal, judgement normal, mood normal. [] (ALEJANDRO ESTRADA DO) EKG: EKG: [] (ALEJANDRO ESTRADA DO) Radiology/Procedures: Radiology/Procedures: [] Impressions: Single view of the chest. 01/20/2021 1:35 PM Indication: Reason: Tachycardia, recent Covid / Comparison: Chest CT December 11, 2019 Findings: No pneumothorax or pleural effusion is seen. Linear opacities are seen throughout the bilateral lungs which may reflect residual infiltrates and/or discoid atelectasis. The cardiomediastinal silhouette is appears mildly enlarged. No acute osseous changes are identified. IMPRESSION: Low lung volumes with residual linear pulmonary opacities possibly representing atelectasis or residual infiltrate Electronically signed by: Bentley May MD (01/20/2021 1:54 PM) [id number] DICTATED AND SIGNED BY: BENTLEY MAY MD DATE: 01/20/21 1352 CC: ALEJANDRO ESTRADA DO; NON,STAFF ~MTH0 0 (ALEJANDRO ESTRADA DO) Heart Score: C/O Chest Pain: N/A Risk Factors: Risk Factors: DM, Current or recent (<one month) smoker, HTN, HLP, family history of CAD, obesity. Risk Scores: Score 0 - 3: 2.5% MACE over next 6 weeks - Discharge Home Score 4 - 6: 20.3% MACE over next 6 weeks - Admit for Clinical Observation Score 7 - 10: 72.7% MACE over next 6 weeks - Early Invasive Strategies (ALEJANDRO ESTRADA DO) Course & Med Decision Making: Course & Med Decision Making Pertinent Labs and Imaging studies reviewed. (See chart for details) The patient's labs are significant for urinary tract infection. I will treat her with Rocephin and levofloxacin. The patient continues to have persistent elevated heart rate of around 115 that is sinus. I talked with patient about admission and she is willing to be admitted to the hospital. I spoke with Dr. Hollins and he has accepted the patient for admission. Patient is still in the emergency room. I am signing her out to Dr. Lewis at 1800. [] (ALEJANDRO ESTRADA DO) Course & Med Decision Making See Dr. Estrada chart for details prior Shift change. Pt. demanding discharge at 2020 hrs. Does not want to wait in ED for hospital bed. No beds available due to staffing shortage. Impression: 1. UTI (SIMI LEWIS MD) Dragon Disclaimer: Dragbritney Disclaimer: This electronic medical record was generated, in whole or in part, using a voice recognition dictation system. (ALEJANDRO ESTRADA DO) Departure Departure: Impression: Primary Impression: Urinary tract infection Disposition: ADMITTED INPATIENT Admitting Physician: Duran Hollins (ALEJANDRO ESTRADA DO) Condition: STABLE Referrals: NON,STAFF (PCP) Scripts Fluconazole (DIFLUCAN) 100 Mg Tablet 100 MG PO DAILY for post antibiotics for 3 Days, #3 TAB Prov: SIMI LEWIS MD 01/20/21 Ciprofloxacin (CIPRO) 500 Mg/5 Ml Angie.mc.rec 500 MG PO BID for UTI for 10 Days, MISC Prov: SIMI LEWIS MD 01/20/21 ALEJANDRO ESTRADA DO Jan 20, 2021 13:25 SIMI LEWIS MD Jan 20, 2021 18:28
--- NOTE | 2021-01-20 13:56 | RAD ---
Single view of the chest. 01/20/2021 1:35 PM Indication: Reason: Tachycardia, recent Covid / Comparison: Chest CT December 11, 2019 Findings: No pneumothorax or pleural effusion is seen. Linear opacities are seen throughout the bila teral lungs which may reflect residual infiltrates and/or discoid atelectasis. The cardiomediastinal silhouette is appears mildly enlarged. No acute osseous changes are identified. IMPRESSION: Low lung volumes with residual linear pulmonary opacities possibly representing atelectas is or residual infiltrate Electronically signed by: Bentley Diop MD (01/20/2021 1:54 PM) [id number]
[2021-01-20 14:28] LABS: BASO % 1 % (0-3); EOS % 1 % (0-3); HEMATOCRIT 27.9 % (36.0-47.0); HEMOGLOBIN 9.5 g/dL (12.0-15.5); LYMPH # 1.4 x10^3/uL (1.0-4.8); LYMPH % 24 % (24-48); MEAN CORPUSCULAR HEMOGLOBIN 31 pg (25-35); MEAN CORPUSCULAR HGB CONC 34 g/dL (31-37); MEAN CORPUSCULAR VOLUME 92 fL (79-100); MONO # 0.6 x10^3/uL (0.0-1.1); MONO % 10 % (0-9); NEUT # 3.8 x10^3uL (1.8-7.7); NEUT % 64 % (31-73); PLATELET COUNT 258 x10^3/uL (140-400); RED BLOOD COUNT 3.02 x10^6/uL (3.50-5.40); RED CELL DISTRIBUTION WIDTH 16.7 % (11.5-14.5); WHITE BLOOD COUNT 5.9 x10^3/uL (4.0-11.0)
[2021-01-20 14:37] LABS: CALCIUM 9.6 mg/dL (8.5-10.1); CREATININE 1.2 mg/dL (0.6-1.0); GFR 47.7; POTASSIUM 4.4 mmol/L (3.5-5.1)
[2021-01-20 14:42] LABS: ALBUMIN 3.4 g/dL (3.4-5.0); ALBUMIN/GLOBULIN RATIO 1.3 (1.0-1.7); TOTAL BILIRUBIN 0.5 mg/dL (0.2-1.0); TOTAL PROTEIN 6.1 g/dL (6.4-8.2)
[2021-01-20] MEDS ORDERED: LORazepam 1 MG TABLET PO ONE (15:45)
[2021-01-20 16:05] LABS: BILIRUBIN,URINE NEG (NEG); CLARITY,URINE HAZY; COLOR,URINE YELLOW; GLUCOSE,URINE NEG (NEG)
[2021-01-20 16:06] LABS: NITRITE,URINE POS (NEG); UROBILINOGEN,URINE 0.2 mg/dL (0.2 mg/dL)
[2021-01-20 16:42] LABS: INFLUENZA A PATIENT NEGATIVE (NEGATIVE); INFLUENZA B PATIENT NEGATIVE (NEGATIVE)
[2021-01-20] MEDS ORDERED: levoFLOXacin 250 MG TABLET PO ONE (17:30)
[2021-01-20] MEDS ORDERED: IV NORMAL SALINE 50ML 50 ML ONE (17:30)
[2021-01-20] MEDS ORDERED: levoFLOXacin 500 MG TABLET PO ONE (17:30)
[2021-01-20] MEDS ORDERED: cefTRIAXone SODIUM 1 GM VIAL ONE (17:30)
[2021-01-20] MEDS ORDERED: ACETAMINOPHEN 325 MG TABLET PO PRN (17:45)
[2021-01-20] MEDS ORDERED: ONDANSETRON PF 4 MG/2 ML VIAL. IVP PRN (17:45)
[2021-01-20] MEDS ORDERED: ACETAMINOPHEN 500 MG TABLET PO ONE (19:15)
[2021-01-20] MEDS ORDERED: CIPR500S2 PO (19:48)
[2021-01-20] MEDS ORDERED: FLUC100T7 PO (19:48)
[2021-01-20] MEDS ORDERED: oxyCODONE/APAP 5/325 1 TAB TABLET ONE (20:25)
[2021-01-20 20:30] VITALS: BP 178/110
[2021-01-20] MEDS ORDERED: oxyCODONE/APAP 5/325 1 TAB TABLET PO ONE (20:30)
[2021-01-21] MEDS ORDERED: levoFLOXacin 750 MG TABLET PO SCH (09:00)
== END 2021-01-20 20:38 | disposition home or self-care (01) ==
LOC: ER 13:05
DX: N39.0 Urinary tract infection, site not specified (principal)
CPT/HCPCS: 36415; 71045; 80053; 81003; 85025; 87804; 96361; 96374; 96375; 99285; J0696; J2405; J7030

== ENCOUNTER 2021-06-02 23:28 | Emergency (ER) | payer OTHER ==
[~2021-06-02] VITALS: Ht 165.1 cm; Wt 116.0 kg
[~2021-06-02 23:28] MED LIST changes: +CIPR500S2 PO; +FLUC100T7 PO
--- NOTE | 2021-06-02 23:40 | PHYS DOC ---
Past History Past Medical History: Anxiety, CAD, Cancer, CVA, Depression, Diabetes, High Cholesterol, Hypertension, Kidney Stones, Ovarian Cyst, Pneumonia, Other Additional Past Medical Histor: PE, tachycardia, NERVE DAMAGE, drop foot on R, BRAIN TUMOR, dialysis Past Surgical History: Appendectomy, Cholecystectomy, , Hysterectomy, Other Additional Past Surgical Histo: OVARIAN CYSTS, BACK SX, brain tumor removed Smoking: Quit Less Than 1 Year Alcohol Use: None Drug Use: None General Adult EDM: Chief Complaint: FEVER HPI: HPI: "I have been feeling weak.. Fatigued... Shortness of breath if I do anything... I been running a fever... They did give me some Tylenol about 7 but I have not had any since then... They said I probably need transfusion because my hemoglobin today was in the six range. .". " Been having some headaches too" Patient is a 51 year old female who presents with above hx and complaints to fever. Pt. also complaints of severe fatigue and some dyspnea. Patient is a resident of [facility] since 10/21/2020. Patient. has extensive medical hx. with diagnosis of diabetes type 2, morbid obesity, COPD, asthma, end-stage renal disease, anxiety disorder, malignant neoplasm of brain, neuromuscular bladder dysfunction, leukemia, chronic DVT, obstructive sleep apnea, paroxysmal atrial fib, hyperlipidemia, recurrent urinary tract infections, diastolic congestive heart failure, generalized muscle weakness and deconditioning, discoordination, chronic pain, hypertension, past history of dialysis currently not on dialysis. Patient has had past abdomen surgeries ovarian cyst removal, C3 C-sections, total hysterectomy, bilateral cephalad tenectomy, appendectomy, cholecystectomy, chronic back pain surgery and cranial surgery for a tumor.. Pt. follows with Mateo Rogers. Review of Systems: Review of Systems: Constitutional: Complains of fever or chills Eyes: Denies change in visual acuity HENT: Denies nasal congestion or sore throat Respiratory: Complains of shortness of breath Cardiovascular: Denies chest pain or edema GI: Denies abdominal pain, nausea, vomiting, bloody stools or diarrhea : Denies dysuria Musculoskeletal: Complains of chronic back and joint pain. Complains of generalized weakness Integument: Denies rash Neurologic: Denies headache, focal weakness or sensory changes Endocrine: Denies polyuria or polydipsia Lymphatic: Denies swollen glands Psychiatric: Denies depression or anxiety Family History: Family History: None contributory to presentation Current Medications: Current Meds: See nursing for home meds Allergies: Allergies: Allergies Coded Allergies Type Severity Reaction Last Updated Verified azithromycin Allergy Intermediate HIVES 12/10/20 Yes codeine Allergy Intermediate 12/10/20 Yes morphine Allergy Intermediate Palpitations 12/10/20 Yes fentanyl Allergy Unknown 06/02/21 Yes Physical Exam: PE: , Constitutional: Moderate acute distress, non-toxic appearance. [] HENT: Normocephalic, atraumatic, bilateral external ears normal, oropharynx moist, no oral exudates, nose normal. Surgical scar Eyes: PERRLA, EOMI, conjunctiva normal, no discharge. [] Neck: Normal range of motion, no tenderness, supple, no stridor. More than 17 inches circumference Cardiovascular: Tachycardia heart rate regular rhythm, no murmur , [] bedside monitor shows a sinus tachycardia. PMI to Lt. Lungs & Thorax: Bilateral breath sounds equal apex with few wheezes and bi lateral basilar crackles on auscultation [] Abdomen: Bowel sounds normal, soft, no tenderness, no masses, no pulsatile masses. Morbid obesity. Bowel surgery scars. Skin: Warm, mild diaphoresis, no erythema, no rash. [] Back: No tenderness, no CVA tenderness. Surgery scars. Extremities: No tenderness, no cyanosis, no clubbing, ROM intact, lower leg edema. [] No cording appreciated Neurologic: Alert and oriented X 3, moves all extremities on request but very weak, distal sensory, no new focal deficits noted. [] Psychologic: Affect anxious, judgement normal, mood normal. [] Current Patient Data: Vital Signs: Vital Signs Date Time Temp Pulse Resp B/P (MAP) Pulse Ox O2 Delivery O2 Flow Rate FiO2 06/02/21 23:34 99.1 102 22 146/89 (108) 99 Nasal Cannula EKG: EKG: My interpretation EKG shows a sinus rhythm at 99 bpm. There is some anterior lateral changes but no findings of acute STEMI of contralateral changes. Time of this EKG is 00 13 minutes [] Radiology/Procedures: Radiology/Procedures: [[address] [address] IMAGING REPORT Signed PATIENT: OWEN HERNANDEZ LACCOUNT: [id number] : 1970 LOCATION: ER AGE: 51 SEX: F EXAM STATUS: REG ER ORD. PHYSICIAN: SIMI WATTS MD REASON: Headache.HX BRAIN TUMOR, STROKE PROCEDURE: CT HEAD WO CONTRAST CT head without contrast PQRS statement: CT scans at this facility use dose reduction including either automated exposure control, iterative reconstructions, and /or weight based radiation dosing via mA and kV modification when appropriate to reduce radiation dose to as low as reasonably achievable. HISTORY: Headache, stroke, history of brain tumor. COMPARISON: CT head December 10, 2020 FINDINGS: Left parietal occipital craniotomy again demonstrated with a presumed underlying resection cavity with mildly vacuo enlargement of the adjacent left atrium and posterior lateral ventricle and mild hypoattenuation of the white matter this is stable. noncontrast CT imaging has limited ability to assess for residual tumor, there is a subtle left parafalcine 2 cm density on axial image 28 and coronal image 35 which could be postsurgical change versus residual tumor. No mass effect. No intracranial hemorrhage. No hydrocephalus. No new infarct or acute ischemic change. IMPRESSION: No acute abnormality. Left parietal craniotomy and resection cavity parietal lobe again demonstrated with stable posttreatment changes. Residual/recurrent tumor is not excluded which can be further assessed with MR imaging. See above. Electronically signed by: Jesusita Monteiro MD (06/03/2021 1:56 AM) [facility] [place] DICTATED AND SIGNED BY: JESUSITA MONTEIRO MD DATE: 06/03/21148 CC: SIMI WATTS MD; KALEY JOHNSON MD ~ ][place] [address] IMAGING REPORT Signed PATIENT: OWEN HERNANDEZ: [id number] : 1970 LOCATION: ER AGE: 51 SEX: F EXAM STATUS: REG ER ORD. PHYSICIAN: SIMI WATTS MD REASON: dyspnea, tachy. PROCEDURE: PORTABLE CHEST 1V AP chest x-ray HISTORY: Dyspnea, tachycardia. COMPARISON: Chest x-ray January 21, 2020. FINDINGS: There is subluxation of the right humeral head away from the glenoid versus chronic dislocation this is stable to the prior exam. Patient is rotated to the right, in light of this the cardiomegaly is grossly stable. No pneumot horax. Mild elevation or eventration of the right lateral diaphragm is stable. Pulmonary vascular prominence likely congestion. Indistinct densities at the lung bases and interstitial reticulation likely mild edema. IMPRESSION: Probable congestive heart failure with cardiomegaly, pulmonary vascular congestion and mild lower lobe pulmonary opacities likely representing edema. See above. Electronically signed by: Jesusita Monteiro MD (06/03/2021 12:21 AM) [facility] [place] DICTATED AND SIGNED BY: JESUSITA MONTEIRO MD DATE: 06/03/2119 CC: SIMI WATTS MD; KALEY JOHNSON MD ~ Heart Score: C/O Chest Pain: No HEART Score for Chest Pain: HEART Score for Chest Pain Response (Comments) Value History Moderately Suspicious 1 ECG Nonspecific Repolarizatio 1 Age >45 - < 65 1 Risk Factors 1 or 2 Risk Factors 1 Troponin < Normal Limit 0 Total 4 Risk Factors: Risk Factors: DM, Current or recent (<one month) smoker, HTN, HLP, family history of CAD, obesity. Risk Scores: Score 0 - 3: 2.5% MACE over next 6 weeks - Discharge Home Score 4 - 6: 20.3% MACE over next 6 weeks - Admit for Clinical Observation Score 7 - 10: 72.7% MACE over next 6 weeks - Early Invasive Strategies Course & Med Decision Making: Course & Med Decision Making Pertinent Labs and Imaging studies reviewed. (See chart for details) Patient to return to [facility] And continue Cipro 500 mg twice a day. Follow-up urine culture. Monitor hemoglobin level. Currently patient's hemoglobin 7.1 does not meet transfusion criteria at our hospital. Impression: 1. CHF- Diastolic Dysfunction BNP 1,374 2. Fever 3. Malnutrition- Alb. 2.9 4. Alk. Phos 117 5. UTI [] Dragon Disclaimer: Dragon Disclaimer: This electronic medical record was generated, in whole or in part, using a voice recognition dictation system. Departure Departure: Referrals: KALEY JOHNSON MD (PCP) Scripts Furosemide (FUROSEMIDE) 40 Mg/5 Ml Solution 40 MG PO DAILY for chf for 5 Days, ML Prov: SIMI WATTS MD 06/03/21 Ciprofloxacin (Ciprofloxacin) 500 Mg/5 Ml Angie.mc.rec 500 MG PO BID for UTi for 7 Days, MISC Prov: SIMI WATTS MD 06/03/21 Furosemide (LASIX) 40 Mg Tablet 40 MG PO DAILY for CHF for 5 Days, #5 TAB Prov: SIMI WATTS MD 06/03/21 Dragon Disclaimer This chart was dictated in whole or in part using Voice Recognition software in a busy, high-work load, and often noisy Emergency Department environment. It may contain unintended and wholly unrecognized errors or omissions. SIMI WATTS MD Jun 02, 2021 23:40
--- NOTE | 2021-06-03 00:20 | EKG ---
[address] [address] Test Date: 2021-06-03 Test Time: 00:13:46 Pat Name: OWEN HERNANDEZ Department: Room: Gender: F Rate Examiner: : 1970 Requested By: SIMI WATTS Order Number: [id number] Reading MD: Axel Richard Measurements Intervals Mize Rate: 99 P: 36 [place]: 142 QRS: 32 QRSD: 92 T: 51 QT: 368 QTc: 478 Interpretive Statements SINUS RHYTHM QRS(T) CONTOUR ABNORMALITY CONSIDER ANTEROLATERAL MYOCARDIAL DAMAGE CONSISTENT WITH POSSIBLE OLD INFERIOR INFARCT Electronically Signed On 06-07-2021 17:42:20 CDT by Axel Richard
--- NOTE | 2021-06-03 00:23 | RAD ---
AP chest x-ray HISTORY: Dyspnea, tachycardia. COMPARISON: Chest x-ray January 21, 2020. FINDINGS: There is subluxation of the right humeral head away from the glenoid versus chronic disloca tion this is stable to the prior exam. Patient is rotated to the right, in light of this the cardiome isabell is grossly stable. No pneumothorax. Mild elevation or eventration of the right lateral diaphragm is stable. Pulmonary vascular prominence likely congestion. Indistinct densities at the lung bases a nd interstitial reticulation likely mild edema. IMPRESSION: Probable congestive heart failure with cardiomegaly, pulmonary vascular congestion and mi ld lower lobe pulmonary opacities likely representing edema. See above. Electronically signed by: Duane Monteiro MD (06/03/2021 12:21 AM) [facility]
[2021-06-03] MEDS: IV RINGERS SOLUTION,LACTATED 1,000 ML IV SCH (00:26)
[2021-06-03] MEDS: diphenhydrAMINE 50 MG/ML VIAL IV ONE (00:26)
[2021-06-03] MEDS: ACETAMINOPHEN 500 MG TABLET PO ONE (00:36)
[2021-06-03 00:42] LABS: BASO % 0 % (0-3); EOS # 0.1 x10^3/uL (0.0-0.7); EOS % 1 % (0-3); HEMATOCRIT 21.7 % (36.0-47.0); HEMOGLOBIN 7.1 g/dL (12.0-15.5); LYMPH # 1.8 x10^3/uL (1.0-4.8); LYMPH % 30 % (24-48); MEAN CORPUSCULAR HEMOGLOBIN 30 pg (25-35); MEAN CORPUSCULAR HGB CONC 33 g/dL (31-37); MEAN CORPUSCULAR VOLUME 92 fL (79-100); MONO % 18 % (0-9); NEUT % 51 % (31-73); PLATELET COUNT 265 x10^3/uL (140-400); RED BLOOD COUNT 2.36 x10^6/uL (3.50-5.40); RED CELL DISTRIBUTION WIDTH 17.8 % (11.5-14.5); WHITE BLOOD COUNT 5.9 x10^3/uL (4.0-11.0)
[2021-06-03 00:48] LABS: CALCIUM 8.7 mg/dL (8.5-10.1); CREATININE 1.1 mg/dL (0.6-1.0); GFR 52.6; POTASSIUM 4.5 mmol/L (3.5-5.1)
[2021-06-03 01:02] LABS: ALBUMIN 2.9 g/dL (3.4-5.0); DIRECT BILIRUBIN 0.1 mg/dL (0.0-0.2); MAGNESIUM 2.1 mg/dL (1.8-2.4); TOTAL BILIRUBIN 0.3 mg/dL (0.2-1.0); TOTAL PROTEIN 6.4 g/dL (6.4-8.2)
[2021-06-03 01:29] LABS: INFLUENZA A PATIENT NEGATIVE (NEGATIVE); INFLUENZA B PATIENT NEGATIVE (NEGATIVE)
--- NOTE | 2021-06-03 01:58 | RAD ---
CT head without contrast PQRS statement: CT scans at this facility use dose reduction including either automated exposure cont rol, iterative reconstructions, and /or weight based radiation dosing via mA and kV modification when appropriate to reduce radiation dose to as low as reasonably achievable. HISTORY: Headache, stroke, history of brain tumor. COMPARISON: CT head December 10, 2020 FINDINGS: Left parietal occipital craniotomy again demonstrated with a presumed underlying resection cavity with mildly vacuo enlargement of the adjacent left atrium and posterior lateral ventricle and mild hypoattenuation of the white matter this is stable. noncontrast CT imaging has limited ability to assess for residual tumor, there is a subtle left parafalcine 2 cm density on axial image 28 and c oronal image 35 which could be postsurgical change versus residual tumor. No mass effect. No intracra nial hemorrhage. No hydrocephalus. No new infarct or acute ischemic change. IMPRESSION: No acute abnormality. Left parietal craniotomy and resection cavity parietal lobe again d emonstrated with stable posttreatment changes. Residual/recurrent tumor is not excluded which can be further assessed with MR imaging. See above. Electronically signed by: Duane Monteiro MD (06/03/2021 1:56 AM) [facility]
[2021-06-03] MEDS: FUROSEMIDE 40 MG/4 ML VIAL IVP ONE (02:09)
[2021-06-03 02:12] LABS: BARBITURATES NEG (NEG); BENZODIAZEPINES NEG (NEG); CANNABINOIDS NEG (NEG); COCAINE NEG (NEG); METHADONE NEG (NEG); OPIATES POS (NEG); PHENCYCLIDINE NEG (NEG)
[2021-06-03] MEDS ORDERED: FURO-68 PO (02:12)
[2021-06-03 02:20] LABS: CLARITY,URINE CLEAR; COLOR,URINE YELLOW; GLUCOSE,URINE NEG (NEG); NITRITE,URINE NEG (NEG); UROBILINOGEN,URINE 0.2 mg/dL (0.2 mg/dL)
[2021-06-03 02:21] LABS: BACTERIA,URINE FEW /HPF (0-FEW); SQUAMOUS EPITHELIAL CELL,UR FEW /LPF
[2021-06-03 02:22] LABS: AMPHETAMINE/METHAMPHETAMINE NEG (NEG)
[2021-06-03] MEDS ORDERED: CIPR500S3 PO (02:30)
[2021-06-03] MEDS ORDERED: cefTRIAXone SODIUM 1 GM VIAL ONE (02:40)
[2021-06-03] MEDS ORDERED: IV NORMAL SALINE 50ML 50 ML ONE (02:40)
[2021-06-03] MEDS: CIPROFLOXACIN HCL 500 MG TABLET PO ONE (02:47)
[2021-06-03 02:59] VITALS: BP 138/85
[2021-06-03] MEDS ORDERED: FURO40SO PO (03:05)
[2021-06-03 06:03] LABS: % EOS 1 % (0-5); % LYMPHS 33 % (24-48); % MONOS 6 % (0-10); % SEGS 60 % (35-66); PLT ESTIMATE ADEQUATE (ADEQUATE)
[2021-06-03 06:04] LABS: ANISOCYTOSIS SLIGHT
== END 2021-06-03 03:26 | disposition home or self-care (01) ==
LOC: ER 23:28
DX: I11.0 Hypertensive heart disease with heart failure (principal); I50.9 Heart failure, unspecified; N39.0 Urinary tract infection, site not specified; E46 Unspecified protein-calorie malnutrition; Z68.41 Body mass index [BMI] 40.0-44.9, adult; Z88.1 Allergy status to other antibiotic agents; Z88.6 Allergy status to analgesic agent; Z20.822 Contact with and (suspected) exposure to COVID-19
CPT/HCPCS: 36415; 70450; 71045; 80048; 80076; 80307; 81001; 82550; 83690; 83735; 83880; 84443; 84484; 85007; 85025; 85045; 85379; 85610; 85730; 86850; 86900; 86901; 87040; 87086; 87428; 93005; 96361; 96374; 96375; 99285; J0696; J1200; J1940; J7120